=== PATIENT | female | born 1950 | race African-American/Black ===

== ENCOUNTER 2025-11-06 17:23 | Inpatient (IN) | payer OTHER ==
[~2025-11-06] VITALS: Ht 153.2 cm; Wt 85.5 kg
[2025-11-06 17:25] VITALS: PULSE 99; RESP 25; O2SAT 100
--- NOTE | 2025-11-06 17:46 | ECG ---
[facility] Test Date: 2025-11-06 Test Time: 17:29:28 Pat Name: LENORA BROWN Department: ED Room: 0203 Gender: F Pay Per Click Strategist: mima : 1950 Requested By: AYALA TIM Order Number: [id number] Reading MD: Augustine Vickers Measurements Intervals [place] Rate: 95 P: 57 [place]: 154 QRS: 9 QRSD: 90 T: 45 QT: 332 QTc: 418 Interpretive Statements Sinus rhythm Low voltage, extremity leads Borderline repolarization abnormality Baseline wander in lead(s) I,III,aVR,aVL,V3,V4,V6 Electronically Signed On 11-10-2025 17:16:02 PST by Augustine Vickers Please click the below link to view image of tracing.
--- NOTE | 2025-11-06 17:56 | ED.PDOC ---
SOB-HPI HPI Comments 75 y/o F, BIBA, with PMHx of COPD presents to the ED on C-Pap for CC of shortness of breath. EMS reports, patient is coming from home where she c/o shortness of breath onset, today (11/06/25). EMS relays, patient was hypoxic upon arrival with an oxygen saturation of 80%. En route to the ED, patient was given a breathing Tx and saturation improved to 90% however respirations remained tachypneic, patient was then placed on C-Pap. Upon arrival to the ED, patient was transferred to ED bed 06 and was placed on BiPAP; care is ongoing at this time. Chief Complaint: Shortness of Breath Time Seen by MD: 17:45 Reviewed notes: Nurses Notes, Photolithographic Stripper Notes, Medications, Allergies Information Source: Patient, Emergency Med Personnel Mode of Arrival: EMS Severity: Moderate Timing: Days Duration: Since onset Context: Spontaneous Onset PE Risk Factors: None History of: COPD Prehospital treatment: Breathing Tx, Other (C-pap) Modifying Factors: Nothing Associated Signs and Symptoms: None Past Medical History PAST MEDICAL HISTORY: COPD Surgical History: Denies all surgeries EMERGENCY MEDCL EMT History: Denies all EMERGENCY MEDCL EMT Hx Family History Family History: Unknown Social History Smoker: Cigarettes Alcohol: Denies ETOH Use Drugs: Denies Drug Use Lives In: Home Constitutional: denies: chills, diaphoresis, fatigue, fever, malaise, sweats, weakness, others EENTM: denies: blurred vision, double vision, ear bleeding, ear discharge, ear drainage, ear pain, ear ringing, eye pain, eye redness, hearing loss, mouth pain, mouth swelling, nasal discharge, nose bleeding, nose congestion, nose pain, photophobia, tearing, throat pain, throat swelling, voice changes, others Respiratory: reports: shortness of breath; denies: cough, hemoptysis, orthopnea, SOB at rest, SOB with excertion, stridor, wheezing, others Cardiovascular: denies: chest pain, dizzy spells, diaphoresis, Dyspnea on exertion, edema, irregular heart beat, left arm pain, lightheadedness, palpitations, PND, syncope, others Gastrointestinal: denies: abdomen distended, abdominal pain, blood streaked bowels, constipated, diarrhea, dysphagia, difficulty swallowing, hematemesis, melena, nausea, poor appetite, poor fluid intake, rectal bleeding, rectal pain, vomiting, others Genitourinary: denies: abnormal vagina bleeding, burning, dyspareunia, dysuria, flank pain, frequency, hematuria, incontinence, pain, , vagina discharge, urgency, others Neurological: denies: dizziness, fainting, headache, left sided numbness, left sided weakness, numbness, paresthesia, pre-existing deficit, right sided numbness, right sided weakness, seizure, speech problems, tingling, tremors, weakness, others Musculoskeletal: denies: back pain, gout, joint pain, joint swelling, muscle pain, muscle stiffness, neck pain, others Integumetry: denies: bruises, change in color, change in hair/nails, dryness, laceration, lesions, lumps, rash, wounds, others Allergic/Immunocompromised: denies: Difficulty Healing, Frequent Infections, Hives, Itching, others Hematologic/Lymphatic: denies: anemia, blood clots, easy bleeding, easy bruising, swollen glands, others Endocrine: denies: excessive hunger, excessive sweating, excessive thirst, excessive urination, flushing, intolerance to cold, intolerance to heat, unexplained weight gain, unexplained weight loss, others Psychiatric: denies: anxiety, bipolar disorder, depression, hopeless, panic disorder, schizophrenia, sleepless, suicidal, others All Other Systems: Reviewed and Negative Physical Exam General Appearance: No Apparent Distress, Normal HEENT: Normal ENT Inspection, Pharynx Normal Neck: Full Range of Motion, Non-Tender, Normal, Normal Inspection Respiratory: Chest Non-Tender, Other (tachypneic, hypoxic, acessory muscle use ) Cardiovascular: No Edema, No Murmur, No Gallop, Normal Peripheral Pulses, Regular Rate/Rhythm Breast Exam: Deferred Gastrointestinal: No Organomegaly, Non Tender, No Pulsatile Mass, Normal Bowel Sounds, Soft Genitalia: Deferred Pelvic: Deferred Rectal: Deferred Extremities: No calf tenderness, Normal capillary refill, Normal inspection, Normal range of motion, Non-tender, No pedal edema Musculoskeletal : Apperance: Normal Neurologic: Alert, bag washer II-XII nml as Tested, No Motor Deficits, Normal Affect, Normal Mood, No Sensory Deficits Cerebellar Function: Normal Reflexes: Normal Skin: Dry, Normal Color, Warm Lymphatic: No Adenopathy Was a procedure done? Was a procedure done?: No Differential Dx Differential Diagnosis: COPD, Hyperventilation, Pulmonary Embolism, Respiratory Distress X-Ray, Labs, Meds, VS Vital Signs Date Time Temp Pulse Resp B/P (MAP) Pulse Ox O2 Delivery O2 Flow Rate FiO2 11/06/25 19:00 84 122/78 96 Facial BiPAP Mask 100 11/06/25 18:40 88 22 122/78 (93) 100 11/06/25 17:29 95 11/06/25 17:25 97.3 99 25 141/114 (123) 100 97.3 11/06/25 17:25 99 25 100 Bi-Pap+ 12 100 100 11/06/25 17:23 97.3 99 30 141/114 100 97.3 11/06/25 17:23 97 141/114 Facial BiPAP Mask 100 Lab Test 11/06/25 19:07 11/06/25 18:07 Range/Units Troponin I High Sensitivity Pending 20 </=34 ng/L White Blood Count 7.4 4.4-10.8 10^3/uL Red Blood Count 5.97 H 4.0-5.20 10^6/uL Hemoglobin 15.3 12.2-16.2 g/dL Hematocrit 47.8 H 36.0-46.0 % Mean Corpuscular Volume 80.0 80.0-100.0 fL Mean Corpuscular Hemoglobin 25.6 L 28.0-32.0 pg Mean Corpuscular Hemoglobin Concent 31.9 L 32.0-36.0 g/dL Red Cell Distribution Width 16.5 H 11.8-14.3 % Platelet Count 285 140-450 10^3/uL Mean Platelet Volume 7.8 6.9-10.8 fL Neutrophils (%) (Auto) 61.4 37.0-80.0 % Lymphocytes (%) (Auto) 28.9 10.0-50.0 % Monocytes (%) (Auto) 8.0 0.0-12.0 % Eosinophils (%) (Auto) 0.6 0.0-7.0 % Basophils (%) (Auto) 1.1 0.0-2.0 % Neutrophils # (Auto) 4.5 1.6-8.6 10 ^3/uL Lymphocytes # (Auto) 2.1 0.4-5.4 10 ^3/uL Monocytes # (Auto) 0.6 0-1.3 10 ^3/uL Eosinophils # (Auto) 0 0-0.8 10 ^3/uL Basophils # (Auto) 0.1 0-0.2 10 ^3/uL Nucleated Red Blood Cells 0.1 % Sodium Level 138 136-145 mmol/L Potassium Level 5.1 3.5-5.1 mmol/L Chloride Level 106 98-107 mmol/L Carbon Dioxide Level 23 20-31 mmol/L Anion Gap 9 5-15 Blood Urea Nitrogen 20 9-23 mg/dL Creatinine 1.75 H 0.550-1.02 mg/dL Glomerular Filtration Rate Calc 30 >90 mL/min BUN/Creatinine Ratio 11.4 10.0-20.0 Serum Glucose 214 H 74-106 mg/dL Lactic Acid Level 1.4 0.4-2.0 mmol/L Calcium Level 9.6 8.7-10.4 mg/dL Time of 1ST Reevaluation: 18:15 Reevaluation 1ST: Unchanged Patient Education/Counseling: Diagnosis, Treatment Family Education/Counseling: No Family Present SEPSIS Sepsis Screen Date sepsis recognized/suspect: Nov 06, 2025 Time Sepsis recognized/suspect: 1724 Recent Procedure: No On Antibiotic Therapy: No Respiratory Rate >20: Yes Heart Rate >90: Yes Temp<36 C (96.8 F) or >38.3 C: No SBP <90 or MAP <65 mmHG: No New Acute Mental Status Change: No Is the patient on CPAP, BIPAP,: Yes Physician Orders Urinalysis (11/06/25 17:44) Chest Portable (11/06/25 17:44) Blood Culture (11/06/25 17:44) Troponin-I Hs (11/06/25 18:44) Troponin-I Hs (11/06/25 20:44) Electrocardigram (11/06/25 18:44) Electrocardigram (11/06/25 20:44) BIPAP (11/06/25 17:23) Vital Signs Date Time Temp Pulse Resp B/P (MAP) Pulse Ox O2 Delivery O2 Flow Rate FiO2 11/06/25 19:00 84 122/78 96 Facial BiPAP Mask 100 11/06/25 18:40 88 22 122/78 (93) 100 11/06/25 17:29 95 11/06/25 17:25 97.3 99 25 141/114 (123) 100 97.3 11/06/25 17:25 99 25 100 Bi-Pap+ 12 100 100 11/06/25 17:23 97.3 99 30 141/114 100 97.3 11/06/25 17:23 97 141/114 Facial BiPAP Mask 100 Laboratory Tests Test 11/06/25 18:07 Lactic Acid Level 1.4 mmol/L (0.4-2.0) White Blood Count 7.4 10^3/uL (4.4-10.8) Departure 1 Departure Time of Disposition: 19:31 (Patient presented with acute shortness of breath concerning for acute on chronic COPD Exacerbation, Pneumonia, ACS, CHF, Pneumothorax. Less likely PE, Dissection. Data: 1. I ordered and reviewed the result of at least 3 labs including a CBC, BMP, and Troponin. 2. I independently interpreted the following tests: Chest X-ray shows large pleural effusion consolidative left lobe .Risk:This patient has a high risk of morbidity due to further diagnostic testing or treatment and may suffer from respiratory or cardiac etiology . Workup reveals a likely COPD Exacerbation and large pleural effusion and patient should be admitted for further workup. and possible expert consultation.) Impression: Primary Impression: Acute and chronic respiratory failure Additional Impression: Pleural effusion Disposition: ADMITTED INPATIENT Admit to: POPPY Condition: Guarded Critical Care Note Critical Care Time?: Yes Critical care comment: Acute on chronic respiratory failure Authorized and Performed by: Ayala Shepard MD Total critical care time: Approximately 39 minutes Due to a high probability of clinically significant, life threatening deterioration, the patient required my highest level of preparedness to intervene emergently and I personally spent this critical care time directly and personally managing the patient. This critical care time included obtaining a history; examining the patient; pulse oximetry; ordering and review of studies; arranging urgent treatment with development of a management plan; evaluation of patient's response to treatment; frequent reassessment; and, discussions with other providers. This critical care time was performed to assess and manage the high probability of imminent, life-threatening deterioration that could result in multi-organ failure. It was exclusive of separately billable procedures and treating other patients and teaching time. Please see my other sections and the rest of the note for further information on patient assessment and treatment. Stability Stability form required: No Heart Score Heart Score: Heart Score Response (Comments) Value History Slightly Suspicious 0 EKG N/A 0 Age >65 2 Risk Factors 1 or 2 risk factors 1 Troponin N/A 0 Total 3 I personally scribed for AYALA SHEPARD MD ([email or web address]) on 11/06/25 at 17:56. Electronically submitted by Christine Sandoval ([email or web address]). I personally scribed for AYALA SHEPARD MD ([email or web address]) on 11/06/25 at 18:09. Electronically submitted by Christine Sandoval ([email or web address]). AYALA SHEPARD MD Nov 06, 2025 17:56
[2025-11-06 18:35] LABS: Hematocrit 47.8 % (36.0-46.0); Hemoglobin 15.3 g/dL (12.2-16.2); Mean Corpuscular Hemoglobin 25.6 pg (28.0-32.0); Mean Corpuscular Volume 80.0 fL (80.0-100.0); Nucleated Red Blood Cells % 0.1 %
[2025-11-06 18:43] LABS: Chloride 106 mmol/L (98-107); Potassium 5.1 mmol/L (3.5-5.1); Sodium 138 mmol/L (136-145)
[2025-11-06 18:44] LABS: Anion Gap 9 (5-15); Calcium 9.6 mg/dL (8.7-10.4); Carbon Dioxide 23 mmol/L (20-31)
[2025-11-06 18:49] LABS: BUN/Creatinine Ratio 11.4 (10.0-20.0); Blood Urea Nitrogen 20 mg/dL (9-23); Glucose 214 mg/dL (74-106)
[2025-11-06 19:00] VITALS: BP 122/78; PULSE 84; O2SAT 96
--- NOTE | 2025-11-06 19:24 | DVH ---
CHEST RADIOGRAPH INDICATION: sob TECHNIQUE: Single frontal view of the chest was obtained COMPARISON: None FINDINGS: Lines and Tubes: External cardiac monitoring wire draped over the right chest simulating the course of a right sided PICC line. This may represent wire from EKG lead as well. Lungs: No focal consolidation. Pleura: Opacification of the left kamaljit thorax may represent large pleural effusion. There are no prior chest x-rays for comparison No pneumothorax. Cardiomediastinal contours: Unremarkable Bones: No acute osseous abnormality. IMPRESSION: 1. Opacified left kamaljit thorax may represent a large pleural effusion.
[2025-11-06 19:50] VITALS: PULSE 82; RESP 21; O2SAT 100
[2025-11-06] MEDS ORDERED: NITROGLYCERIN 0.4 MG SL TAB SL PRN (20:15)
[2025-11-06] MEDS ORDERED: MORPHINE SULFATE INJ 2 MG/ml SYRG IV PRN (20:15)
[2025-11-06] MEDS ORDERED: IPRATROPIUM BROM 0.5 MG/2.5ML INH SOL NEB PRN (20:30)
[2025-11-06] MEDS ORDERED: DEXTROSE (50%) 50ML SYRG IV PRN (20:30)
[2025-11-06] MEDS ORDERED: ALBUTEROL SULF 2.5 MG/0.5ML(0.5%) NEB SOLN NEB PRN (20:30)
[2025-11-06] MEDS ORDERED: ONDANSETRON HCL 4 MG/2 ML VIAL IV PRN (20:30)
[2025-11-06 20:48] LABS: Base Excess -4.7 mmol/L (-2.0-3.0)
[2025-11-06] MEDS: AZITHROMYCIN 500MG/250ML 250 ML IV ONE (21:00)
[2025-11-06 21:11] VITALS: BP 122/78; PULSE 89; RESP 22; TEMP 97.3; O2SAT 97
[2025-11-06] MEDS: ACCU-CHEK COMFORT CURVE STRIP VI SCH (22:06)
[2025-11-06] MEDS: InsuLIN REG 1unit/0.01ml Soln (100units/ml) SC SCH (22:15)
[2025-11-07] VITALS (9 sets, daily range): BP systolic 114–137; BP diastolic 75–79; PULSE 64–79; RESP 16–25; TEMP 97.4–97.7; O2SAT 97–100
--- NOTE | 2025-11-07 03:43 | DVHHP2 ---
History of Present Illness Reason for Visit: Shortness for breath History of Present Illness 75-year-old female presents for evaluation of shortness for breath. Patient presents with a one day history of shortness for breath. On arrival patient was noted to be saturating in the low 80s. She was placed on CPAP intermittently. Currently off CPAP on nasal cannula saturating 93%. Patient denies chest pain. No palpitations. No fever or chills. She reports mild lower extremity swelling. Past Medical History COPD, hypertension, diabetes mellitus Past Surgical History Denies Family History Noncontributory Smoke: No ALCOHOL: none Drugs: None Lives: with Family Review of Systems Review of Systems Review of systems are currently negative otherwise addressed in HPI. Allergies: Coded Allergies: NO KNOWN ALLERGIES (Unverified , 11/06/25) Medications Current Medications Medications Dose Ordered Sig/Indra Route Start Time Stop Time Status Last Admin Dose Admin Nitroglycerin 0.4 mg Q5MINP PRN SL 11/06/25 20:15 Morphine Sulfate 2 mg Q30M PRN IV 11/06/25 20:15 Albuterol 2.5 mg Q6HPRN PRN NEB 11/06/25 20:30 Ipratropium [place] 0.5 mg Q6HPRN PRN NEB 11/06/25 20:30 Azithromycin 250 ml @ 125 mls/hr Q24H IV 11/07/25 21:00 Diagnostic Test (Pha) 1 strip ACHS 11/06/25 22:00 11/06/25 22:06 1 STRIP Insulin Human Regular ACHS SC 11/06/25 22:00 11/06/25 22:15 2 UNITS Dextrose 50 ml UD PRN IV 11/06/25 20:30 Ondansetron HCl 4 mg Q4HP PRN IV 11/06/25 20:30 Enoxaparin Sodium 30 mg DAILY SC 11/07/25 10:00 Acetaminophen 650 mg Q6HP PRN PO 11/06/25 20:30 Exam Vital Signs Vital Signs Date Time Temp Pulse Resp B/P (MAP) Pulse Ox O2 Delivery O2 Flow Rate FiO2 11/07/25 03:00 65 24 98/53 (68) 98 11/06/25 21:11 97.3 7.0 58 97.3 11/06/25 19:50 Bi-Pap+ Exam Gen: 75-year-old female in mild distress Skin: Warm, dry, normal color and texture, no rash. HEENT: Normocephalic atraumatic, mucous membranes moist and pink. Neck: Cervical and supraclavicular nodes normal without enlargement, trachea is midline, thyroid gland is normal without masses. Pulmonary: Clear to auscultation and percussion bilaterally. Cardiac: Regular rate and rhythm. No murmur Abdomen: Soft, nontender, nondistended, bowel sounds present all 4 quadrants, no guarding, no rigidity, no organomegaly. Extremities: No cyanosis, clubbing, no edema Neuro: Cranial nerves II through XII grossly intact, normal affect and speech, no focal motor deficits. Labs/Xrays ORDERING PHYSICIAN: AYALA TIM MD PROCEDURE(s): CXRP - CHEST PORTABLE REASON: sob ORDER NUMBER(s): [id number], ACCESSION NUMBER(s): [id number] CHEST RADIOGRAPH INDICATION: sob TECHNIQUE: Single frontal view of the chest was obtained COMPARISON: None FINDINGS: Lines and Tubes: External cardiac monitoring wire draped over the right chest simulating the course of a right sided PICC line. This may represent wire from EKG lead as well. Lungs: No focal consolidation. Pleura: Opacification of the left kamaljit thorax may represent large pleural effusion. There are no prior chest x-rays for comparison No pneumothorax. Cardiomediastinal contours: Unremarkable Bones: No acute osseous abnormality. IMPRESSION: 1. Opacified left kamaljit thorax may represent a large pleural effusion. Labs Test 11/06/25 22:05 11/06/25 20:38 11/06/25 19:07 11/06/25 18:07 Range/Units POC Glucose 140 H 70-106 mg/dl Blood Gas Specimen Type Arterial Blood Gas Sample Site Right radial Blood Gas Patient Temperature 37.0 Arterial Blood Date Drawn [id number] Arterial Blood pH 7.332 L 7.350-7.450 Arterial Blood Partial Pressure CO2 40.3 32.0-45.0 mmHg Arterial Blood Partial Pressure O2 221.5 H 83.0-108.0 mmHg Arterial Blood HCO3 20.9 L 21.0-28.0 mmol/L Arterial Blood Oxygen Saturation 99.5 H 94.0-98.0 % Arterial Blood Base Excess -4.7 L -2.0-3.0 mmol/L Arterial Blood Oxyhemoglobin 97.2 94.0-98.0 % Arterial Blood Carboxyhemoglobin 1.8 H 0.5-1.5 % Arterial Blood Methemoglobin 0.5 0.0-1.5 % Arterial Blood Deoxyhemoglobin 0.5 0.0-5.0 % Pancho Test Modified Blood Gas Total Hemoglobin 15.00 12.0-16.0 g/dL Blood Gas Set Respiration Rate 12.0 Blood Gas Modality Mask - bipap FiO2 % 100.0 Blood Gas EPAP 5 Blood Gas IPAP 12 Troponin I High Sensitivity 20 </=34 ng/L White Blood Count 7.4 4.4-10.8 10^3/uL Red Blood Count 5.97 H 4.0-5.20 10^6/uL Hemoglobin 15.3 12.2-16.2 g/dL Hematocrit 47.8 H 36.0-46.0 % Mean Corpuscular Volume 80.0 80.0-100.0 fL Mean Corpuscular Hemoglobin 25.6 L 28.0-32.0 pg Mean Corpuscular Hemoglobin Concent 31.9 L 32.0-36.0 g/dL Red Cell Distribution Width 16.5 H 11.8-14.3 % Platelet Count 285 140-450 10^3/uL Mean Platelet Volume 7.8 6.9-10.8 fL Neutrophils (%) (Auto) 61.4 37.0-80.0 % Lymphocytes (%) (Auto) 28.9 10.0-50.0 % Monocytes (%) (Auto) 8.0 0.0-12.0 % Eosinophils (%) (Auto) 0.6 0.0-7.0 % Basophils (%) (Auto) 1.1 0.0-2.0 % Neutrophils # (Auto) 4.5 1.6-8.6 10 ^3/uL Lymphocytes # (Auto) 2.1 0.4-5.4 10 ^3/uL Monocytes # (Auto) 0.6 0-1.3 10 ^3/uL Eosinophils # (Auto) 0 0-0.8 10 ^3/uL Basophils # (Auto) 0.1 0-0.2 10 ^3/uL Nucleated Red Blood Cells 0.1 % D-Dimer, Quantitative 4.64 H 0.0-0.49 mg/L FEU Sodium Level 138 136-145 mmol/L Potassium Level 5.1 3.5-5.1 mmol/L Chloride Level 106 98-107 mmol/L Carbon Dioxide Level 23 20-31 mmol/L Anion Gap 9 5-15 Blood Urea Nitrogen 20 9-23 mg/dL Creatinine 1.75 H 0.550-1.02 mg/dL Glomerular Filtration Rate Calc 30 >90 mL/min BUN/Creatinine Ratio 11.4 10.0-20.0 Serum Glucose 214 H 74-106 mg/dL Lactic Acid Level 1.4 0.4-2.0 mmol/L Calcium Level 9.6 8.7-10.4 mg/dL B-Type Natriuretic Peptide 37.47 0-100 pg/mL SEPSIS Sepsis Screen Date sepsis recognized/suspect: Nov 06, 2025 Time Sepsis recognized/suspect: 1724 Recent Procedure: No On Antibiotic Therapy: No Respiratory Rate >20: Yes Heart Rate >90: Yes Temp<36 C (96.8 F) or >38.3 C: No SBP <90 or MAP <65 mmHG: No New Acute Mental Status Change: No Is the patient on CPAP, BIPAP,: Yes Physician Orders Admit (11/06/25 20:08) Nitroglycerin Sublingual (Ntrostat Subli (11/06/25 20:15) Morphine Sulfate Injection (11/06/25 20:15) Stat Ekg For Chest Pain (11/06/25 20:08) Notify Md Of Changes From Base (11/06/25 20:08) Automation Controls Expert For 24 Hours (11/06/25 20:08) Emergency Dysrhythmia Protocol (11/06/25 20:08) Rhythm Strips Once Every Shift (11/06/25 20:08) Oxygen By Nasal Cannula (11/06/25 20:08) Abg W/ Co-Ox (11/06/25 20:17) Consistent Carb(Ccho)Diabetes (11/07/25 Breakfast) Albuterol Medneb (Ventolin Medneb) (11/06/25 20:30) Ipratropium Medneb (Atrovent Medneb) (11/06/25 20:30) Azithromycin 500mg/250ml (Zithromax 500m (11/07/25 21:00) * Radiologist Consult (11/06/25 20:17) Chest Without Contrast (11/06/25 20:17) Glucose Blood (Accu-Chek Comfort Curve T (11/06/25 22:00) Insulin R (Human) (Insulin R) (11/06/25 22:00) Dextrose 50% Syringe (11/06/25 20:30) Ondansetron Hcl (Zofran) (11/06/25 20:30) Complete Blood Count (11/07/25 04:00) Comprehensive Metabolic Panel (11/07/25 04:00) Cardiac Diet-2gna,Lofat,Lochol (11/07/25 Breakfast) Echo 2d Mode Cardiac Dop (11/06/25 20:17) Condition: Critical (11/06/25 20:17) Enoxaparin Sodium (Lovenox) (11/07/25 10:00) Acetaminophen Tablet (Tylenol Tablet) (11/06/25 20:30) Bedrest With Bathroom Privileg (11/06/25 20:17) Transfer Orders (11/06/25 23:51) Nm Vq Scan (11/07/25 03:35) Vital Signs Date Time Temp Pulse Resp B/P (MAP) Pulse Ox O2 Delivery O2 Flow Rate FiO2 11/07/25 03:00 65 24 98/53 (68) 98 11/06/25 23:30 76 26 95/65 (75) 96 11/06/25 22:30 78 29 118/86 (97) 94 11/06/25 21:30 72 25 98/75 (83) 100 11/06/25 21:11 97.3 89 22 122/78 97 7.0 58 97.3 11/06/25 19:50 82 21 100 Bi-Pap+ 12 100 100 Laboratory Tests Test 11/06/25 18:07 Lactic Acid Level 1.4 mmol/L (0.4-2.0) White Blood Count 7.4 10^3/uL (4.4-10.8) Medications Medications Dose Ordered Sig/Indra Route Start Time Stop Time Status Last Admin Dose Admin Azithromycin 250 ml @ 125 mls/hr ONCE ONCE IV 11/06/25 20:30 11/06/25 22:29 DC 11/06/25 21:00 125 MLS/HR Diagnostic Test (Pha) 1 strip ACHS 11/06/25 22:00 11/06/25 22:06 1 STRIP Insulin Human Regular ACHS SC 11/06/25 22:00 11/06/25 22:15 2 UNITS Assessment/Plan Assessment/Plan Assessment Acute on chronic hypoxic respiratory failure Large pleural effusion COPD Acute kidney injury Hypertension Diabetes mellitus Plan Admit the patient to [facility] to the hospitalist Radiology consultation Med nebs Azithromycin Chest CT pending V/Q scan pending Bilateral lower extremity ultrasound pending Continue treatment per orders Total critical care time excluding procedures performed this 55 minutes. Plan discussed with: Patient My Orders Orders - FERGUSONCASTROHECTOR AGACNP Procedure Category Date Status Time Admit ADMIT 11/06/25 Transmitted 20:08 Nitroglycerin PHA 11/06/25 In Process Sublingual (Ntrostat 20:15 Morphine Sulfate PHA 11/06/25 In Process Injection 20:15 Stat Ekg For Chest RAJESH 11/06/25 In Process Pain 20:08 Notify Of Changes RAJESH 11/06/25 In Process From Base 20:08 Automation Controls Expert For RAJESH 11/06/25 In Process 24 Hours 20:08 Emergency Dysrhythmia RAJESH 11/06/25 In Process Protocol 20:08 Rhythm Strips Once RAJESH 11/06/25 In Process Every Shift 20:08 Oxygen By Nasal RT 11/06/25 Transmitted Cannula 20:08 Abg W/ Co-Ox RT 11/06/25 Logged 20:17 Consistent DIET 11/07/25 Transmitted Carb(Ccho)Diabetes Breakfast Albuterol Medneb PHA 11/06/25 In Process (Ventolin Medneb) 20:30 Ipratropium Medneb PHA 11/06/25 In Process (Atrovent Medneb) 20:30 Azithromycin PHA 11/07/25 In Process 500mg/250ml 21:00 * Radiologist Consult CONS 11/06/25 Transmitted 20:[address] 11/06/25 Logged 20:17 Glucose Blood PHA 11/06/25 In Process (Accu-Chek Comfort 22:00 Insulin R (Human) PHA 11/06/25 In Process (Insulin R) 22:00 Dextrose 50% Syringe PHA 11/06/25 In Process 20:30 Ondansetron Hcl PHA 11/06/25 In Process (Zofran) 20:30 Complete Blood Count LAB 11/07/25 Logged 04:00 Comprehensive LAB 11/07/25 Logged Metabolic Panel 04:00 Cardiac DIET 11/07/25 Transmitted Diet-2gna,Lofat,Lochol Breakfast Echo 2d Mode Cardiac US 11/06/25 Logged DOP 20:17 Condition: Critical RAJESH 11/06/25 In Process 20:17 Enoxaparin Sodium PHA 11/07/25 In Process (Lovenox) 10:00 Acetaminophen Tablet PHA 11/06/25 In Process (Tylenol Tablet) 20:30 Bedrest With Bathroom RAJESH 11/06/25 In Process Privileg 20:17 Transfer Orders XFER 11/06/25 Transmitted 23:51 Nm Vq Scan NM 11/07/25 Logged 03:35 Date of Service: Nov 06, 2025 Billing Provider: CASTRO FERGUSON Common Visit Codes: 44764-[id number] CARE 30-74 MIN CASTRO FERGUSON Nov 07, 2025 03:43
--- NOTE | 2025-11-07 05:03 | DVH ---
CT Chest without intravenous contrast INDICATION: sob TECHNIQUE: Multidetector spiral CT of the chest was performed from the lung apices to the upper abdomen. Axial, coronal and sagittal multiplanar reformats were performed. Radiation Dose : 1. Chest: CTDI volume is 27.8 mGy. Dose-length product is 1066.83 mGy*cm The dose indicators for CT are the volume Computed Tomography (CT) Dose Index (CTDIvol) and the Dose Length Product (DLP), and are measured in units of mGy and mGy-cm, respectively. These indicators are not patient dose, but values generated from the CT scanner acquisition factors. The report includes radiation exposure data for exposures received during this examination. COMPARISON: XY CHEST PORTABLE on DOS: 11/06/25 FINDINGS: Lower neck: Normal thyroid. Lungs /pleura: Large left pleural effusion occupying the entire left kamaljit thorax with complete left lung collapse and concomitant shift of the mediastinal structures to the right. Subsolid 6 mm perifissural lateral right lower lobe pulmonary nodule. Heart/Vascular Structures: Normal heart size. No pericardial effusion. Lymph Nodes: No adenopathy Musculoskeletal: No acute osseous abnormality. Soft tissues: Normal. Upper abdomen: Limited portions of the upper abdomen are unremarkable. IMPRESSION: 1. Large left pleural effusion occupying the entire left hemithorax with complete left lung collapse and concomitant shift of the mediastinal structures to the right. 2. Subsolid perifissural lateral right lower lobe pulmonary nodule. Radiation optimization: All CT scans at this facility use at least one of these dose optimization techniques: automated exposure control mA and/or kV adjustment per patient size (includes targeted exams where dose is matched to clinical indication) or iterative reconstruction.
[2025-11-07 05:09] LABS: Urine Protein, UAD 2+ (Negative)
[2025-11-07 06:56] LABS: Hematocrit 44.0 % (36.0-46.0); Hemoglobin 14.1 g/dL (12.2-16.2); Mean Corpuscular Hemoglobin 25.5 pg (28.0-32.0); Mean Corpuscular Volume 79.6 fL (80.0-100.0); Nucleated Red Blood Cells % 0.1 %
[2025-11-07 07:10] LABS: Alanine Aminotransferase 37 U/L (7-40); Albumin 3.3 g/dL (3.2-4.8); Alkaline Phosphatase 78 U/L (46-116); Anion Gap 7 (5-15); BUN/Creatinine Ratio 11.9 (10.0-20.0); Blood Urea Nitrogen 20 mg/dL (9-23); Calcium 9.2 mg/dL (8.7-10.4); Carbon Dioxide 23 mmol/L (20-31); Potassium 4.5 mmol/L (3.5-5.1); Sodium 142 mmol/L (136-145); Total Protein 6.2 g/dL (5.7-8.2)
[2025-11-07 07:11] LABS: Bilirubin, Total 0.3 mg/dL (0.2-1.0)
[2025-11-07 07:25] LABS: Chloride 112 mmol/L (98-107)
[2025-11-07 07:27] LABS: Glucose 35 mg/dL (74-106)
--- NOTE | 2025-11-07 09:15 | DVH ---
Bilateral lower extremity venous duplex CLINICAL HISTORY: edema COMPARISON: None FINDINGS: Duplex Doppler evaluation of the deep venous systems of both lower extremities from the common femoral veins to the popliteal veins including color Doppler and spectral/pulsed waveform analysis was performed. RIGHT SIDE: The common femoral vein demonstrates appropriate compressibility and waveform variability. There is compressibility/patency of the great saphenous vein at the proximal thigh. The femoral vein demonstrates appropriate compressibility and waveform variability. The deep femoral vein demonstrates appropriate compressibility and waveform variability. The popliteal vein demonstrates appropriate compressibility and waveform variability. There is normal compressibility at the tibioperoneal trunk. LEFT SIDE: The common femoral vein demonstrates appropriate compressibility and waveform variability. There is compressibility/patency of the great saphenous vein at the proximal thigh. The femoral vein demonstrates appropriate compressibility and waveform variability. The deep femoral vein demonstrates appropriate compressibility and waveform variability. The popliteal vein demonstrates appropriate compressibility and waveform variability. There is normal compressibility at the tibioperoneal trunk. IMPRESSION: No right or left femoropopliteal venous thrombosis. If clinical concern/symptoms persist or worsen, short-interval follow-up study is suggested. END IMPRESSION:
[2025-11-07] MEDS: ENOXAPARIN SOD 30 MG/0.3 ML SYRINGE SC SCH (10:21)
[2025-11-07] MEDS: FUROSEMIDE 20 MG TAB PO SCH (10:21)
--- NOTE | 2025-11-07 10:41 | DVH ---
PROCEDURE: ULTRASOUND GUIDED THORACENTESIS USING TEMPORARY CATHETER HISTORY: PLERUAL EFFUSION DOCUMENTATION: Informed consent was obtained and a procedural time out was performed. FINDINGS: The risks and benefits of the procedure including bleeding, infection and pneumothorax were explained to the patient and written informed consent obtained. Optimal site for puncture long the left posterior chest wall was determined using real-time ultrasound and the region sterilized. Local anesthesia was instilled. A 5 [place] catheter was then advanced into the pleural space and 1.1 liters of clear fluid was removed. The patient tolerated the procedure well. IMPRESSION: 1. Successful left thoracentesis with 1.1 L of clear fluid removed.
--- NOTE | 2025-11-07 12:39 | DVH ---
CHEST RADIOGRAPH INDICATION: Post Thoracentesis TECHNIQUE: Single frontal view of the chest was obtained COMPARISON: CT CHEST WITHOUT CONTRAST on DOS: 11/07/25, XY CHEST PORTABLE on DOS: 11/06/25 FINDINGS: Lines and Tubes: None Lungs: There is complete opacification of the left hemithorax. Increased density is seen at the right lung base. No pneumothorax. Cardiomediastinal contours: Difficult to visualize due to large hemithorax left opacity. Bones: No acute osseous abnormality. IMPRESSION: 1. Complete opacification of the left hemithorax. 2. No pneumothorax. 3. Mild infiltrate right lung base.
--- NOTE | 2025-11-07 14:53 | DVHPNRES ---
Progress Note Date Seen: Nov 07, 2025 Resident Creating Document: MIKAL ZAPATA RESIDENT Medical Necessity Reason Pt with a Central, PICC or Fol: No Subjective Review of Systems Patient is 75 years old female with a past medical history of hypertension, diabetes mellitus type 2, COPD not on home oxygen came with a complaint of shortness of breaths. As per patient she has been having shortness of breaths for last 3 weeks, increased with the exertion. Patient also endorsed cough with whitish mucus. Patient denied any fever, palpitation, leg swelling/weight loss or anorexia. CXR revealed-Opacified left kamaljit thorax may represent a large pleural effusion. CT chest- Large left pleural effusion occupying the entire left hemithorax with complete left lung collapse and concomitant shift of the mediastinal structures to the right. Subsolid perifissural lateral right lower lobe pulmonary nodule. V/Q scan low probability for PE. Doppler study of the lower extremity nonsignificant per DVT. PMH-hypertension, diabetes mellitus type 2, COPD PSH- denies Allergy- and kidney Personal History/ Social History- chronic smoker for almost 50 years, denies alcoholism or drug abuse, lives with daughter and granddaughter. ROS Cardiovascular- shortness of breaths Respiratory cough, shortness of breath Gastrointestinal- denies any rectal bleeding, nausea or vomiting Musculoskeletal-denies acute joint swelling or tenderness or redness Neurological- denies acute dysarthria, dysphagia, change in vision Psychiatry- denies depression or SI or HI Skin- denies acute rash or purpura Patient is seen today at bedside, Labs and chart reviewed Patient had thoracentesis, 1.1 L of fluid was removed by IR Pending cytology report for pleural fluid Ordered Pulmonary consult Ordered IR for chest tube drainage Patient's antibiotic Zosyn and azithromycin Pending MRSA screening, blood culture, respiratory culture Objective vital signs Vital Sign Date Time Temp Pulse Resp B/P (MAP) Pulse Ox O2 Delivery O2 Flow Rate FiO2 11/07/25 13:00 72 28 138/37 (70) 94 11/07/25 11:40 Nasal Cannula* 4 36 11/07/25 07:30 97.6 97.6 Total Intake and Output 11/06/25 11/06/25 11/07/25 15:00 23:00 07:00 Intake Total 250 ml Balance 250 ml medications Current Medications Medications Dose Ordered Sig/Indra Route Start Time Stop Time Status Last Admin Dose Admin Nitroglycerin 0.4 mg Q5MINP PRN SL 11/06/25 20:15 Morphine Sulfate 2 mg Q30M PRN IV 11/06/25 20:15 Azithromycin 250 ml @ 125 mls/hr Q24H IV 11/07/25 21:00 Diagnostic Test (Pha) 1 strip ACHS 11/06/25 22:00 11/07/25 11:30 1 STRIP Insulin Human Regular ACHS SC 11/06/25 22:00 11/06/25 22:15 2 UNITS Dextrose 50 ml UD PRN IV 11/06/25 20:30 Ondansetron HCl 4 mg Q4HP PRN IV 11/06/25 20:30 Enoxaparin Sodium 30 mg DAILY SC 11/07/25 10:00 11/07/25 10:21 30 MG Acetaminophen 650 mg Q6HP PRN PO 11/06/25 20:30 Furosemide 20 mg DAILY PO 11/07/25 10:00 11/07/25 10:21 20 MG Diagnostic Test (Pha) 1 strip ACHS 11/07/25 17:00 Albuterol 2.5 mg Q6HWA NEB 11/07/25 18:00 Ipratropium [place] 0.5 mg Q6HWA NEB 11/07/25 18:00 Piperacillin Sod/ Tazobactam Sod 100 ml @ 25 mls/hr Q8HR IV 11/07/25 14:30 Examination General examination- awake, alert HEENT- PEERLA, no acute nasal discharge Cardiovascular- S1-S2 audible, rate and rhythm regular, no murmur Respiratory- diminished breath sound of the left side of the lung Gastrointestinal-nontender, bowel sound+. Nondistended Musculoskeletal-no acute joint swelling or tenderness or redness Lower extremity- no leg edema Neurological- cranial nerves intact, no acute dysarthria or dysphagia Psychiatry- denies depression or SI or HI Skin- no acute rash or purpura laboratory and microbiology Laboratory Tests 11/07/25 06:00 Test 11/07/25 06:00 Range/Units Serum Glucose 35 *L 74-106 mg/dL Problem List/Assessment/Plan Problem List/Assessment/Plan #Acute hypoxic respiratory failure likely due to parapneumonic effusion/malignant pleural effusion # suspected pneumonia Gram-positive versus Gram-negative # suspected malignancy of the left lung # right lung pulmonary nodule # COPD - CXR revealed-Opacified left kamaljit thorax may represent a large pleural effusion. - CT chest- Large left pleural effusion occupying the entire left hemithorax with complete left lung collapse and concomitant shift of the mediastinal structures to the right. Subsolid perifissural lateral right lower lobe pulmonary nodule. - V/Q scan low probability for PE. - Doppler study of the lower extremity nonsignificant per DVT. -status post thoracentesis on the left side, 1.1 L fluid was removed by IR -pending cytology for pleural fluid, pending pleural fluid restart -pending blood culture, MRSA screening, respiratory culture -patient on Zosyn and azithromycin -nebulization PRN -continue Lasix -ordered Pulmonary consult for further evaluation and care -ordered IR consult for chest tube drainage # [place] likely due to VMN -Avoid dehydration and nephrotoxic drug # hypertension -monitor blood pressure # diabetes mellitus type 2 with hyperglycemia -hemoglobin A1c 7.5 -insulin sliding scale Goals of care, Code status full code ; discussed with >15 minutes PUD prophylaxis: Pantoprazole DVT prophylaxis: Lovenox Plan discussed with Dr. Chowdary , nursing staff, Total time spent on patient evaluation, chart review, assessment and plan, discussion discussion >35 minutes Plan discussed with: Patient, Other (RN) My Orders My Orders Orders - MIKAL ZAPATA Procedure Category Date Status Time Vitamin D, 25-Hydroxy LAB 11/07/25 In Process 11:35 Drug Screen LAB 11/07/25 Logged 11:35 Cytology MUMTAZ 11/07/25 Transmitted 11:47 Glucose Blood PHA 11/07/25 In Process (Accu-Chek Comfort 17:00 Lactate LAB 11/07/25 Logged Dehydrogenase, Fluid 14:47 Visit Coding STANDARD RES Billing Provider: RANDOLPH CROCKETT MD Date of Service if different f: Nov 07, 2025 Common Visit Codes: [id number] INP/OBS CARE(HIGH) MIKAL ZAPATA Nov 07, 2025 14:53
--- NOTE | 2025-11-07 15:17 | DVH ---
NUCLEAR MEDICINE VENTILATION/PERFUSION LUNG SCAN. INDICATION: PULMONARY EMBOLISM TECHNIQUE: Following intravenous demonstration of 5 millicuries of technetium xe-133, and inhalation of 3.5 mCi of Tc 99m MAA scintigrams were obtained in multiple projections of the lungs. FINDINGS: There is normal uptake of radionuclide on both the ventilation and perfusion portions of the examination. No mismatched perfusion defects are demonstrated. Uptake is normally homogeneous. IMPRESSION: Low probability for PE.
[2025-11-07] MEDS: NICOTINE 21MG/24 HR TOPICAL PATCH TD ONE (16:06)
[2025-11-07] MEDS: PIPERACILLIN-TAZOB 3.375GM 100 ML IV SCH (16:06)
[2025-11-07] MEDS ORDERED: ALBU108A5 IN (17:44)
[2025-11-07] MEDS ORDERED: METF-370 PO (17:45)
[2025-11-07] MEDS ORDERED: FLUT250M2 INH (17:45)
[2025-11-07] MEDS ORDERED: INSU100S4 SC (17:47)
[2025-11-07] MEDS ORDERED: GLIP10TA21 PO (17:47)
[2025-11-07] MEDS ORDERED: LISI20TA56 PO (17:49)
[2025-11-07] MEDS: ALBUTEROL SULF 2.5 MG/0.5ML(0.5%) NEB SOLN NEB SCH (18:04)
[2025-11-07] MEDS: IPRATROPIUM BROM 0.5 MG/2.5ML INH SOL NEB SCH (18:04)
[2025-11-07] MEDS: ACCU-CHEK COMFORT CURVE STRIP VI SCH (18:30)
[2025-11-07 20:28] LABS: Amphetamine Screen, Urine Neg (NEGATIVE); Barbiturate Scree,Urine Neg (NEGATIVE); Benzodiazephine Screen, Urine Neg (NEGATIVE); Cannabinoid Screen, Urine Neg (NEGATIVE); Phencyclidine Screen, Urine Neg (NEGATIVE)
[2025-11-07 20:37] LABS: Cocaine Screen, Urine Neg (NEGATIVE)
[2025-11-07 20:56] LABS: Opiate Scree,Urine Neg (NEGATIVE)
[2025-11-07] MEDS: AZITHROMYCIN 500MG/250ML 250 ML IV SCH (21:05)
--- NOTE | 2025-11-07 23:28 | DVHINCON2 ---
Date of service: Nov 07, [address] Rashid Reason for Consultation Pleural effusion, acute on chronic hypoxic respiratory failure. History of Present Illness A 75-year-old woman with PMHx of COPD, hypertension, and diabetes mellitus who presents to ED today for evaluation of shortness of breath. Patient presents with a one-day history of shortness of breath. On arrival patient was noted to be saturating in the low 80s. She was placed on CPAP intermittently. Currently off CPAP, on nasal cannula. Patient denies chest pain. No palpitations. No fever or chills. She reports mild lower extremity swelling. Patient was admitted for further care. Pulmonary consultation is requested for evaluation and management of pleural effusion and acute on chronic hypoxic respiratory failure. Review of Systems: 14-point review of systems negative unless otherwise noted above. Past Medical History: COPD, hypertension, diabetes mellitus Past Surgical History: Denies Medications: Reviewed. Allergies: No known drug allergies. Family History: No family history of premature CAD. No family history of lung disorders. Social History: Nonsmoker. No alcohol or illicit drug use. Family History: Patient reports no known family medical history. Allergies: Coded Allergies: NO KNOWN ALLERGIES (Unverified , 11/06/25) Home Meds Reported Medications Lisinopril (Lisinopril) 20 Mg Tab, 1 TAB PO DAILY, #30 TAB 5 Refills 11/07/25 Glipizide (Glipizide Er) 10 Mg Tab, 1 TAB PO DAILY, #90 TAB 1 Refill 11/07/25 Insulin Glargine-Yfgn (Insulin Glargine) 100 Unit/Ml [place], 100 UNIT SC, ML 11/07/25 Metformin Hydrochloride (Metformin Hcl) 500 Mg Tab, 1 TAB PO BID, #60 TAB 3 Refills 11/07/25 Fluticasone-Salmeterol (Advair Diskus 250/50) 1 Puff Ih, 1 PUFF INH BID, #3 INHALER 3 Refills 11/07/25 Albuterol Sulfate (Albuterol Sulfate Hfa) 108 Mcg/Act Aer, 108 MCG IN, AER 11/07/25 Current Medications Current Medications Medications (Trade) Dose Ordered Sig/Indra Route PRN Reason Start Time Stop Time Status Last Admin Azithromycin 250 ml @ 125 mls/hr Q24H IV 11/07/25 21:00 11/07/25 21:05 Enoxaparin Sodium (Lovenox) 30 mg DAILY SC 11/07/25 10:00 11/07/25 10:21 Furosemide (Lasix Tablet) 20 mg DAILY PO 11/07/25 10:00 11/07/25 10:21 Diagnostic Test (Pha) (Accu-Chek Comfort Curve T) 1 strip ACHS 11/07/25 17:00 11/07/25 21:05 Ceftriaxone Sodium 50 ml @ 100 mls/hr DAILY@09 IV 11/07/25 12:00 11/07/25 14:28 DC 11/07/25 12:00 Albuterol (Ventolin Medneb) 2.5 mg Q6HWA [facility] 11/07/25 18:00 11/07/25 18:04 Ipratropium [place] (Atrovent Medneb) 0.5 mg Q6HWA [facility] 11/07/25 18:00 11/07/25 18:04 Piperacillin Sod/ Tazobactam Sod 100 ml @ 25 mls/hr Q8HR IV 11/07/25 14:30 11/07/25 16:06 Nicotine (Nicoderm 21MG/ 24HR) 1 patch DAILY TD 11/08/25 10:00 Vital Signs Vital Signs Date Time Temp Pulse Resp B/P (MAP) Pulse Ox O2 Delivery O2 Flow Rate FiO2 11/07/25 21:00 97.7 72 16 114/75 (88) 98 97.7 11/07/25 18:00 Nasal Cannula 4.0 11/07/25 18:00 36 Physical Exam Gen.: Patient lying in bed in no apparent distress. On supplemental oxygen. Head: Normocephalic, atraumatic. Eyes: EOMI/PERRLA. Ears: Normal hearing. Normal anatomy. Neck/trachea: Trachea midline, supple. Nose: Normal external anatomy. Mouth: Moist mucous membranes. Chest: Decreased air entry bilaterally. No wheezing or rhonchi. Cardiovascular: Positive S1, positive S2. Regular rate and rhythm. Abdomen: Positive bowel sounds in all 4 quadrants. Soft, non-tender, non- distended. : Deferred. Rectal: Deferred. Skin: Warm, dry. Intact. Extremities: 2+ radial pulses bilaterally. No lower extremity edema. Neuro: Awake, alert, oriented x3. No gross motor or sensory deficits. Cranial ne rves II through XII intact. Gait not assessed. Labs/Diagnostic Data Labs Test 11/07/25 21:10 11/07/25 18:00 11/07/25 13:17 11/07/25 13:14 Range/Units POC Glucose 230 H 70-106 mg/dl Influenza Type A Antigen Negative Negative Influenza Type B Antigen Negative Negative Lactate Dehydrogenase 228 120-246 U/L C-Reactive Protein High Sensitivity 1.68 H <1.0 mg/dL Vitamin D 25-Hydroxy 33.7 30.0-100 ng/mL Vitamin B12 Level 503 211-911 pg/mL Folic Acid 8.48 >5.38 ng/mL Test 11/07/25 10:25 11/07/25 06:00 11/07/25 01:11 11/06/25 20:38 Range/Units Body Fluid Source Pleural fluid Body Fluid pH 7.0 Body Fluid WBC (Manual) 1169 H 0-200 CUMM Body Fluid RBC (Manual) 1983 0-2000 CUMM Body Fluid Mononuclear Cells 98 % Body Fluid Polymorphonuclear Cells 2 0-25 % White Blood Count 6.6 4.4-10.8 10^3/uL Red Blood Count 5.52 H 4.0-5.20 10^6/uL Hemoglobin 14.1 12.2-16.2 g/dL Hematocrit 44.0 36.0-46.0 % Mean Corpuscular Volume 79.6 L 80.0-100.0 fL Mean Corpuscular Hemoglobin 25.5 L 28.0-32.0 pg Mean Corpuscular Hemoglobin Concent 32.0 32.0-36.0 g/dL Red Cell Distribution Width 16.3 H 11.8-14.3 % Platelet Count 255 140-450 10^3/uL Mean Platelet Volume 8.2 6.9-10.8 fL Neutrophils (%) (Auto) 76.5 37.0-80.0 % Lymphocytes (%) (Auto) 13.8 10.0-50.0 % Monocytes (%) (Auto) 8.6 0.0-12.0 % Eosinophils (%) (Auto) 0.5 0.0-7.0 % Basophils (%) (Auto) 0.6 0.0-2.0 % Neutrophils # (Auto) 5.0 1.6-8.6 10 ^3/uL Lymphocytes # (Auto) 0.9 0.4-5.4 10 ^3/uL Monocytes # (Auto) 0.6 0-1.3 10 ^3/uL Eosinophils # (Auto) 0 0-0.8 10 ^3/uL Basophils # (Auto) 0 0-0.2 10 ^3/uL Nucleated Red Blood Cells 0.1 % Erythrocyte Sedimentation Rate 8 0-20 mm/hr Sodium Level 142 136-145 mmol/L Potassium Level 4.5 3.5-5.1 mmol/L Chloride Level 112 H 98-107 mmol/L Carbon Dioxide Level 23 20-31 mmol/L Anion Gap 7 5-15 Blood Urea Nitrogen 20 9-23 mg/dL Creatinine 1.68 H 0.550-1.02 mg/dL Glomerular Filtration Rate Calc 31 >90 mL/min BUN/Creatinine Ratio 11.9 10.0-20.0 Serum Glucose 35 *L 74-106 mg/dL Hemoglobin A1c 7.5 H <5.7 % A1C Calcium Level 9.2 8.7-10.4 mg/dL Total Bilirubin 0.3 0.2-1.0 mg/dL Aspartate Amino Transferase (AST) 28 13-40 U/L Alanine Aminotransferase (ALT) 37 7-40 U/L Alkaline Phosphatase 78 46-116 U/L Total Protein 6.2 5.7-8.2 g/dL Albumin 3.3 3.2-4.8 g/dL Thyroid Stimulating Hormone (TSH) 1.11 0.55-4.78 uIU/mL Urine Color Yellow Yellow Urine Clarity Turbid H Clear Urine pH 5.5 5.0-9.0 Urine Specific [place] 1.024 1.001-1.035 Urine Protein 2+ H Negative Urine Ketones Negative Negative Urine Blood Negative Negative /uL Urine Nitrite Negative Negative Urine Bilirubin Negative Negative Urine Urobilinogen 2 H Negative mg/dL Urine Leukocyte Esterase Negative Negative /uL Urine RBC 2 0 - 4 /hpf Urine Microscopic WBC 4 0-5 /HPF Urine Squamous Epithelial Cells Few <5 /hpf Urine Bacteria Few H None Seen /hpf Urine Hyaline Casts Many 0 - 2 /lpf Urine Mucus Few None Seen Urine Glucose Trace Normal mg/dL Urine Opiates Screen Neg NEGATIVE Urine Fentanyl Screen Neg NEGATIVE Urine Barbiturates Screen Neg NEGATIVE Urine Phencyclidine Screen Neg NEGATIVE Urine Amphetamines Screen Neg NEGATIVE Urine Benzodiazepines Screen Neg NEGATIVE Urine Cocaine Screen Neg NEGATIVE Urine Cannabinoids Screen Neg NEGATIVE Blood Gas Specimen Type Arterial Blood Gas Sample Site Right radial Blood Gas Patient Temperature 37.0 Arterial Blood Date Drawn [id number] Arterial Blood pH 7.332 L 7.350-7.450 Arterial Blood Partial Pressure CO2 40.3 32.0-45.0 mmHg Arterial Blood Partial Pressure O2 221.5 H 83.0-108.0 mmHg Arterial Blood HCO3 20.9 L 21.0-28.0 mmol/L Arterial Blood Oxygen Saturation 99.5 H 94.0-98.0 % Arterial Blood Base Excess -4.7 L -2.0-3.0 mmol/L Arterial Blood Oxyhemoglobin 97.2 94.0-98.0 % Arterial Blood Carboxyhemoglobin 1.8 H 0.5-1.5 % Arterial Blood Methemoglobin 0.5 0.0-1.5 % Arterial Blood Deoxyhemoglobin 0.5 0.0-5.0 % Pancho Test Modified Blood Gas Total Hemoglobin 15.00 12.0-16.0 g/dL Blood Gas Set Respiration Rate 12.0 Blood Gas Modality Mask - bipap FiO2 % 100.0 Blood Gas EPAP 5 Blood Gas IPAP 12 Test 11/06/25 19:07 11/06/25 18:07 Range/Units Troponin I High Sensitivity 20 </=34 ng/L D-Dimer, Quantitative 4.64 H 0.0-0.49 mg/L FEU Lactic Acid Level 1.4 0.4-2.0 mmol/L B-Type Natriuretic Peptide 37.47 0-100 pg/mL Microbiology Date/Time Source Procedure Growth Status 11/06/25 18:15 Blood Blood Culture - Preliminary NO GROWTH AFTER 24 HOURS OF INCUBATION. Resulted Assessment Impression: Acute on chronic hypoxic respiratory failure Dependence on supplemental oxygen Pleural effusion, large, left. Atelectasis Chronic obstructive pulmonary disease Acute kidney injury Obesity Plan: Supplemental oxygen Titrate to keep O2 sats above 92%. On 4 LPM NC Taper O2 as tolerated. S/p left thoracentesis today with removal of 1.1 liters of fluid. Follow up pleural fluid cultures and cytology. CXR today reviewed, demonstrates: Complete opacification of the left hemithorax. No pneumothorax. Mild infiltrate, right lung base Chest CT (11/06/25) reveals: Large left pleural effusion occupying the entire left hemithorax with complete left lung collapse and concomitant shift of the mediastinal structures to the right. Subsolid perifissural lateral right lower lobe pulmonary nodule. V/Q scan shows low probability for PE. Bilateral lower extremity venous ultrasound negative for DVT. Continue bronchodilators. Continue antibiotics Incentive spirometry Blood pressure control. Accu-Cheks, ISS PRN. Diurese with Lasix as tolerated Monitor renal function. Monitor electrolytes. Supplement as necessary. Monitor ins and outs. Recommend diet and lifestyle modifications for weight reduction Obesity complicates all care DVT prophylaxis. Prognosis: Poor given patient's multiple co-morbidities. Rest of plan per hospitalist and other consultants. Thank you, Dr. Rashid, for allowing me to participate in this patient's care. Further recommendations will depend on the patient's clinical course. Please do not hesitate to contact me if you have any questions or concerns. This medical document was created using an electronic medical record system with [employer] dictation system. Although these documentations are being carefully reviewed, there may still be some phonetic and typographical changes. The errors are purely typographical, due to imperfection on the software program, and do not reflect any compromise in the patient's medical care. Plan discussed with: Patient, Other (LY Frausto/) Visit Coding Pulmonary Billing Provider: JORGITO ACEVES MD Date of Service if different f: Nov 07, 2025 Common Visit Codes: [id number] INP/OBS CARE (HIGH) JORGITO ACEVES MD Nov 07, 2025 23:28
[2025-11-08] VITALS (16 sets, daily range): BP systolic 108–128; BP diastolic 56–76; PULSE 66–82; RESP 16–20; TEMP 97.6–98.6; O2SAT 92–100
--- NOTE | 2025-11-08 05:42 | DVH ---
CHEST RADIOGRAPH INDICATION: PLEURAL EFFUSION TECHNIQUE: Single frontal view of the chest was obtained COMPARISON: XY CHEST XRAY 1 VIEW on DOS: 11/07/25, CT CHEST WITHOUT CONTRAST on DOS: 11/07/25, XY CHEST PORTABLE on DOS: 11/06/25 FINDINGS: Lines and Tubes: None Lungs: Stable appearing extensive left hemithoracic opacification consistent with Large pleural effusion and mild concomitant [id number] shift of the mediastinal structures. Mild diffuse increased prominence of the right hemithoracic pulmonary vasculature. No pneumothorax. Cardiomediastinal contours: Unremarkable Bones: Unremarkable IMPRESSION: 1. Stable appearing extensive left hemithoracic opacification consistent with large pleural effusion and mild concomitant [id number] shift of the mediastinal structures. 2. Mild diffuse increased prominence of the right hemithoracic pulmonary vasculature.
[2025-11-08 06:31] LABS: Mean Corpuscular Volume 79.4 fL (80.0-100.0)
[2025-11-08 06:34] LABS: Hematocrit 41.3 % (36.0-46.0); Hemoglobin 13.2 g/dL (12.2-16.2); Mean Corpuscular Hemoglobin 25.4 pg (28.0-32.0); Nucleated Red Blood Cells % 0.1 %
[2025-11-08 06:44] LABS: Anion Gap 6 (5-15); Carbon Dioxide 26 mmol/L (20-31); Potassium 4.8 mmol/L (3.5-5.1); Sodium 142 mmol/L (136-145)
[2025-11-08 06:46] LABS: Calcium 9.1 mg/dL (8.7-10.4)
[2025-11-08 06:47] LABS: Chloride 110 mmol/L (98-107)
[2025-11-08 06:51] LABS: BUN/Creatinine Ratio 11.3 (10.0-20.0); Blood Urea Nitrogen 17 mg/dL (9-23); Magnesium 2.4 mg/dL (1.6-2.6)
[2025-11-08 06:57] LABS: Glucose 37 mg/dL (74-106)
[2025-11-08] MEDS: ACCU-CHEK COMFORT CURVE STRIP VI ONE (07:00)
[2025-11-08] MEDS: NICOTINE 21MG/24 HR TOPICAL PATCH TD SCH (09:11)
--- NOTE | 2025-11-08 14:01 | DVHPNRES ---
Progress Note Date Seen: Nov 08, 2025 Resident Creating Document: MIKAL ZAPATA RESIDENT Medical Necessity Reason Pt with a Central, PICC or Fol: No Subjective Review of Systems Patient is 75 years old female with a past medical history of hypertension, diabetes mellitus type 2, COPD not on home oxygen came with a complaint of shortness of breaths. As per patient she has been having shortness of breaths for last 3 weeks, increased with the exertion. Patient also endorsed cough with whitish mucus. Patient denied any fever, palpitation, leg swelling/weight loss or anorexia. CXR revealed-Opacified left kamaljit thorax may represent a large pleural effusion. CT chest- Large left pleural effusion occupying the entire left hemithorax with complete left lung collapse and concomitant shift of the mediastinal structures to the right. Subsolid perifissural lateral right lower lobe pulmonary nodule. V/Q scan low probability for PE. Doppler study of the lower extremity nonsignificant per DVT. PMH-hypertension, diabetes mellitus type 2, COPD PSH- denies Allergy- and kidney Personal History/ Social History- chronic smoker for almost 50 years, denies alcoholism or drug abuse, lives with daughter and granddaughter. ROS Cardiovascular- shortness of breaths Respiratory cough, shortness of breath Gastrointestinal- denies any rectal bleeding, nausea or vomiting Musculoskeletal-denies acute joint swelling or tenderness or redness Neurological- denies acute dysarthria, dysphagia, change in vision Psychiatry- denies depression or SI or HI Skin- denies acute rash or purpura Patient is seen today at bedside Labs and chart reviewed Pleural fluid glucose 66, total protein 4.9, possible exudative pleural effusion Patient on NC O2 3 L/min Spoke to Radiology, plan is to do thoracentesis tomorrow again Patient on IV antibiotic Zosyn and azithromycin Precipitating drop of hemoglobin Patient with recurrent asymptomatic hypoglycemic episode, discontinued insulin With patient's permission Talked to patient's granddaughter Rosalva, , discussed patient's current medical condition, treatment plan and answered her questions Objective vital signs Vital Sign Date Time Temp Pulse Resp B/P (MAP) Pulse Ox O2 Delivery O2 Flow Rate FiO2 11/08/25 13:00 98.2 78 18 122/63 (82) 95 98.2 11/08/25 11:09 Nasal Cannula* 3 32 Total Intake and Output 11/07/25 11/07/2525 15:00 23:00 07:00 Intake Total 170 ml 900 ml Output Total 1100 ml Balance -1100 ml 170 ml 900 ml medications Current Medications Medications Dose Ordered Sig/Indra Route Start Time Stop Time Status Last Admin Dose Admin Nitroglycerin 0.4 mg Q5MINP PRN SL 11/06/25 20:15 Morphine Sulfate 2 mg Q30M PRN IV 11/06/25 20:15 Azithromycin 250 ml @ 125 mls/hr Q24H IV 11/07/25 21:00 11/07/25 21:05 125 MLS/HR Diagnostic Test (Pha) 1 strip ACHS 11/06/25 22:00 11/08/25 11:18 1 STRIP Dextrose 50 ml UD PRN IV 11/06/25 20:30 Ondansetron HCl 4 mg Q4HP PRN IV 11/06/25 20:30 Enoxaparin Sodium 30 mg DAILY SC 11/07/25 10:00 11/08/25 09:11 30 MG Acetaminophen 650 mg Q6HP PRN PO 11/06/25 20:30 Furosemide 20 mg DAILY PO 11/07/25 10:00 11/08/25 09:11 20 MG Diagnostic Test (Pha) 1 strip ACHS 11/07/25 17:00 11/08/25 11:18 1 STRIP Albuterol 2.5 mg Q6HWA NEB 11/07/25 18:00 11/08/25 11:09 2.5 MG Ipratropium [place] 0.5 mg Q6HWA NEB 11/07/25 18:00 11/08/25 11:09 0.5 MG Piperacillin Sod/ Tazobactam Sod 100 ml @ 25 mls/hr Q8HR IV 11/07/25 14:30 11/08/25 13:15 25 MLS/HR Nicotine 1 patch DAILY TD 11/08/25 10:00 11/08/25 09:11 1 PATCH Examination General examination- awake, alert HEENT- PEERLA, no acute nasal discharge Cardiovascular- S1-S2 audible, rate and rhythm regular, no murmur Respiratory- diminished breath sound of the left side of the lung Gastrointestinal-nontender, bowel sound+. Nondistended Musculoskeletal-no acute joint swelling or tenderness or redness Lower extremity- no leg edema Neurological- cranial nerves intact, no acute dysarthria or dysphagia Psychiatry- denies depression or SI or HI Skin- no acute rash or purpura laboratory and microbiology Laboratory Tests 11/08/25 04:56 Test 11/08/25 04:56 Range/Units Serum Glucose 37 *L 74-106 mg/dL Microbiology Date/Time Source Procedure Growth Status 11/07/25 18:00 Nose MRSA Screen - Final Complete 11/07/25 10:25 Pleural Fluid Gram Stain - Final Resulted 11/07/25 10:25 Pleural Fluid Body Fluid Culture - Preliminary No growth Resulted 11/06/25 18:15 Blood Blood Culture - Preliminary NO GROWTH AFTER 24 HOURS OF INCUBATION. Resulted Problem List/Assessment/Plan Problem List/Assessment/Plan #Acute hypoxic respiratory failure likely due to parapneumonic effusion/malignant pleural effusion, likely exudative with concomitant mediastinal shifting to the right # suspected pneumonia Gram-positive versus Gram-negative # suspected malignancy of the left lung # right lung pulmonary nodule # COPD - CXR revealed-Opacified left kamaljit thorax may represent a large pleural effusion. - CT chest- Large left pleural effusion occupying the entire left hemithorax with complete left lung collapse and concomitant shift of the mediastinal structures to the right. Subsolid perifissural lateral right lower lobe pulmonary nodule. - V/Q scan low probability for PE. - Doppler study of the lower extremity nonsignificant per DVT. -status post thoracentesis on the left side, 1.1 L fluid was removed by IR -pending cytology for pleural fluid, -Pleural fluid glucose 66, total protein 4.9 -pending blood culture, MRSA screening, respiratory culture -patient on Zosyn and azithromycin -nebulization PRN -continue Lasix -recommendation reviewed and appreciated -as per IR repeat thoracentesis tomorrow # [place] likely due to VMN -Avoid dehydration and nephrotoxic drug # hypertension -monitor blood pressure # diabetes mellitus type 2 with hyperglycemia -hemoglobin A1c 7.5 -insulin sliding scale Goals of care, Code status full code ; discussed with >15 minutes PUD prophylaxis: Pantoprazole DVT prophylaxis: Lovenox Plan discussed with Dr. Chowdary , nursing staff, Total time spent on patient evaluation, chart review, assessment and plan, discussion discussion >35 minutes Plan discussed with: Patient, Other (RN) My Orders My Orders Orders - MIKAL ZAPATA RESIDENT Procedure Category Date Status Time Lactate LAB 11/07/25 Logged Dehydrogenase, Fluid 14:47 Chest Portable XY 11/08/25 Resulted 04:00 Visit Coding STANDARD RES Billing Provider: RANDOLPH CROCKETT MD Date of Service if different f: Nov 08, 2025 Common Visit Codes: [id number] INP/OBS CARE(HIGH) MIKAL ZAPATA RESIDENT Nov 08, 2025 14:01
[2025-11-08 15:08] LABS: Glucose, Body Fluid 66.0 mg/dL (.)
--- NOTE | 2025-11-08 16:26 | DVHSR ---
APPROVED REPORT EXAM: LIMITED Two-dimensional and M-mode echocardiogram with Doppler and color Doppler. Blood Pressure: 132/104 mmHg INDICATION EF RISK FACTORS Obesity: Height: 5'0", Weight: 187 DIMENSIONS LVDd (3.8-5.7cm) LA (2D) 2.9 (1.9-4.0cm) Aortic Root 3.0 (2.0-3.7cm) LVDs (2.5-4.0cm) LA (MM) (1.9-4.0cm) Aortic Cusp Exc 1.1 (1.5-2.0cm) EF (%) 60.0 (55-70%) Rt. Atrium (1.9-4.0cm) Asc. Aorta cm Mitral Valve Mitral Mitral Stenosis E wave 1.09m/s MV Mean GR. mmHg A wave 1.49m/s MV Peak GR. mmHg E/A ratio 0.7 2D MVA cm2 DECEL Time 294ms PRESS 1/2 Time ms Aortic Valve Aortic Valve Aortic Stenosis V1 1.33m/s AO Mean GR. 8mmHg V2 2.10m/s AO Peak GR. 18mmHg LVOT Diameter 1.8 (1.8-2.4cm) Doppler KARISHMA 1.61cm2 Other Information Quality : Technically Limited Rhythm : Technically limited study due to body habitus, large pleural effusion. Conclusion limited study lvef 60% moderat eLV cannot assess valves well significant pleural effusion, consider imaging or pulm consult for this, this distors most heart images small pericardial effusion, circumfrerential , no HD collapse noted
[2025-11-08 17:22] LABS: Protein, Urine 44.7 mg/dL (1-14)
--- NOTE | 2025-11-08 22:54 | DVHPN2 ---
Subjective DOS: 11/08/2025 Patient seen and examined at bedside. Remains on supplemental oxygen Overnight events reviewed. Changes from previous H/P or p: No Changes Objective Vitals Vital Signs Date Time Temp Pulse Resp B/P (MAP) Pulse Ox O2 Delivery O2 Flow Rate FiO2 11/08/25 21:00 97.9 68 17 111/56 (74) 96 97.9 11/08/25 18:02 Nasal Cannula 3.0 11/08/25 18:02 32 Intake/Output Intake and Output 11/08/25 07:00 Intake Total 1070 ml Output Total 1100 ml Balance -30 ml Intake Oral 720 ml IV Total 350 ml Output Drainage Total 1100 ml # Voids 7 Exam Gen.: Patient lying in bed in no apparent distress. On supplemental oxygen. Head: Normocephalic, atraumatic. Eyes: EOMI/PERRLA. Ears: Normal hearing. Normal anatomy. Neck/trachea: Trachea midline, supple. Nose: Normal external anatomy. Mouth: Moist mucous membranes. Chest: Decreased air entry bilaterally. No wheezing or rhonchi. Cardiovascular: Positive S1, positive S2. Regular rate and rhythm. Abdomen: Positive bowel sounds in all 4 quadrants. Soft, non-tender, non- distended. : Deferred. Rectal: Deferred. Skin: Warm, dry. Intact. Extremities: 2+ radial pulses bilaterally. No lower extremity edema. Neuro: Awake, alert, oriented x3. No gross motor or sensory deficits. Cranial nerves II through XII intact. Gait not assessed. Medications Current Medications Medications Dose Ordered Sig/Indra Route Start Time Stop Time Status Last Admin Dose Admin Nitroglycerin 0.4 mg Q5MINP PRN SL 11/06/25 20:15 Morphine Sulfate 2 mg Q30M PRN IV 11/06/25 20:15 Azithromycin 250 ml @ 125 mls/hr Q24H IV 11/07/25 21:00 11/08/25 20:33 125 MLS/HR Diagnostic Test (Pha) 1 strip ACHS 11/06/25 22:00 11/08/25 22:44 1 STRIP Dextrose 50 ml UD PRN IV 11/06/25 20:30 Ondansetron HCl 4 mg Q4HP PRN IV 11/06/25 20:30 Enoxaparin Sodium 30 mg DAILY SC 11/07/25 10:00 11/08/25 09:11 30 MG Acetaminophen 650 mg Q6HP PRN PO 11/06/25 20:30 Furosemide 20 mg DAILY PO 11/07/25 10:00 11/08/25 09:11 20 MG Diagnostic Test (Pha) 1 strip ACHS 11/07/25 17:00 11/08/25 22:44 1 STRIP Albuterol 2.5 mg Q6HWA NEB 11/07/25 18:00 11/08/25 18:02 2.5 MG Ipratropium [place] 0.5 mg Q6HWA [facility] 11/07/25 18:00 11/08/25 18:02 0.5 MG Piperacillin Sod/ Tazobactam Sod 100 ml @ 25 mls/hr Q8HR IV 11/07/25 14:30 11/08/25 13:15 25 MLS/HR Nicotine 1 patch DAILY TD 11/08/25 10:00 11/08/25 09:11 1 PATCH Laboratory Results Laboratory Tests 11/08/25 04:56 Chemistry Test 11/08/25 04:56 Calcium Level 9.1 mg/dL (8.7-10.4) Magnesium Level 2.4 mg/dL (1.6-2.6) Urinalysis Test 11/07/25 01:11 11/08/25 17:03 Urine Color Yellow (Yellow) Urine Clarity Turbid (Clear) H Urine pH 5.5 (5.0-9.0) Urine Specific [place] 1.024 (1.001-1.035) Urine Protein 2+ (Negative) H Urine Ketones Negative (Negative) Urine Blood Negative /uL (Negative) Urine Nitrite Negative (Negative) Urine Bilirubin Negative (Negative) Urine Urobilinogen 2 mg/dL (Negative) H Urine Leukocyte Esterase Negative /uL (Negative) Urine RBC 2 /hpf (0 - 4) Urine Microscopic WBC 4 /HPF (0-5) Urine Squamous Epithelial Cells Few /hpf (<5) Urine Bacteria Few /hpf (None Seen) H Urine Hyaline Casts Many /lpf (0 - 2) Urine Mucus Few (None Seen) Urine Glucose Trace mg/dL (Normal) Urine Creatinine 57.37 mg/dL (30.0-125.0) Urine Protein/Creatinine Ratio 0.78 Urine Sodium 66 mmol/L (40-220) Urine Total Protein 44.7 mg/dL (1-14) H Microbiology Microbiology Date/Time Source Procedure Growth Status 11/07/25 18:00 Nose MRSA Screen - Final Complete 11/07/25 10:25 Pleural Fluid Gram Stain - Final Resulted 11/07/25 10:25 Pleural Fluid Body Fluid Culture - Preliminary No growth Resulted 11/06/25 18:15 Blood Blood Culture - Preliminary NO GROWTH AFTER 48 HOURS OF INCUBATION. Resulted Assessment/Plan Assessment/Plan Impression: Acute on chronic hypoxic respiratory failure Dependence on supplemental oxygen Pleural effusion, large, left. Atelectasis Chronic obstructive pulmonary disease Acute kidney injury Obesity Events: Remains on supplemental oxygen, 3 LPM NC Taper O2 as tolerated S/p thoracentesis, 1.1 L fluid removed by IR. Cytology shows pleural fluid glucose 66, total protein 4.9, possible exudative pleural effusion Radiology plans to repeat thoracentesis tomorrow Continue bronchodilators Continue IV antibiotics, Zosyn and azithromycin MRSA negative Blood cx show no growth Monitor hemoglobin - trended down to 13.2 g/dL Transfuse if less than 7.0 g/dL. Patient with recurrent asymptomatic hypoglycemic episode, discontinued insulin. Continue to monitor blood sugars Continue diuresis with Lasix Monitor renal function. Monitor electrolytes. Supplement as necessary. Nicotine patch Labs and imaging reviewed. Rest of plan as noted below. Plan: Supplemental oxygen Titrate to keep O2 sats above 92%. CXR (11/07) demonstrates complete opacification of the left hemithorax. No pneumothorax. Mild infiltrate, right lung base S/p left thoracentesis on 11/07/25 with removal of 1.1 liters of fluid. Chest CT (11/06) reveals: Large left pleural effusion occupying the entire left hemithorax with complete left lung collapse and concomitant shift of the mediastinal structures to the right. Subsolid perifissural lateral right lower lobe pulmonary nodule. V/Q scan shows low probability for PE. Bilateral lower extremity venous ultrasound negative for DVT. Continue bronchodilators. Continue antibiotics Incentive spirometry Blood pressure control. Accu-Cheks, ISS PRN. Diurese with Lasix as tolerated Monitor renal function. Monitor electrolytes. Supplement as necessary. Monitor ins and outs. Recommend diet and lifestyle modifications for weight reduction Obesity complicates all care DVT prophylaxis. Prognosis: Poor given patient's multiple co-morbidities. Rest of plan per hospitalist and other consultants. Thank you, Dr. Rashid, for allowing me to participate in this patient's care. Further recommendations will depend on the patient's clinical course. Please do not hesitate to contact me if you have any questions or concerns. This medical document was created using an electronic medical record system with [employer] dictation system. Although these documentations are being carefully reviewed, there may still be some phonetic and typographical changes. The errors are purely typographical, due to imperfection on the software program, and do not reflect any compromise in the patient's medical care. Plan discussed with: Patient, Other (LY Odell) Visit Coding Pulmonary Billing Provider: JORGITO ACEVES MD Date of Service if different f: Nov 08, 2025 Common Visit Codes: [id number] INP/OBS CARE(HIGH) JORGITO ACEVES MD Nov 08, 2025 22:54
[2025-11-09] VITALS (14 sets, daily range): BP systolic 115–137; BP diastolic 55–95; PULSE 63–86; RESP 16–20; TEMP 97.2–98.8; O2SAT 92–100
[2025-11-09 06:38] LABS: Mean Corpuscular Volume 78.4 fL (80.0-100.0)
[2025-11-09 06:41] LABS: Hematocrit 40.4 % (36.0-46.0); Hemoglobin 12.9 g/dL (12.2-16.2); Mean Corpuscular Hemoglobin 25.1 pg (28.0-32.0); Nucleated Red Blood Cells % 0.0 %
[2025-11-09 06:48] LABS: Anion Gap 7 (5-15); Calcium 9.2 mg/dL (8.7-10.4); Carbon Dioxide 25 mmol/L (20-31); Potassium 4.9 mmol/L (3.5-5.1); Sodium 141 mmol/L (136-145)
[2025-11-09 06:53] LABS: Chloride 109 mmol/L (98-107)
[2025-11-09 06:54] LABS: BUN/Creatinine Ratio 10.5 (10.0-20.0); Blood Urea Nitrogen 17 mg/dL (9-23)
[2025-11-09 06:55] LABS: Magnesium 2.2 mg/dL (1.6-2.6)
[2025-11-09 07:03] LABS: Glucose 121 mg/dL (74-106)
[2025-11-09 13:07] LABS: INR 1.03 (0.9-1.15); Partial Thromboplastin Time 29.3 SEC (24.5-34.5); Prothrombin Time 10.9 sec (9.3-11.8)
--- NOTE | 2025-11-09 13:11 | DVH ---
Left Chest Sonogram Date: 11/09/2025 12:16 PM CLINICAL HISTORY: evaluate pleural effusion for possible thora FINDINGS: Limited sonographic evaluation of the left chest was performed to localize and beverly fluid for thoracentesis. There is a large left pleural effusion. IMPRESSION: Large left pleural effusion END IMPRESSION:
--- NOTE | 2025-11-09 14:45 | DVHPNRES ---
Progress Note Date Seen: Nov 09, 2025 Resident Creating Document: MIKAL ZAPATA RESIDENT Medical Necessity Reason Pt with a Central, PICC or Fol: No Subjective Review of Systems Patient is 75 years old female with a past medical history of hypertension, diabetes mellitus type 2, COPD not on home oxygen came with a complaint of shortness of breaths. As per patient she has been having shortness of breaths for last 3 weeks, increased with the exertion. Patient also endorsed cough with whitish mucus. Patient denied any fever, palpitation, leg swelling/weight loss or anorexia. CXR revealed-Opacified left kamaljit thorax may represent a large pleural effusion. CT chest- Large left pleural effusion occupying the entire left hemithorax with complete left lung collapse and concomitant shift of the mediastinal structures to the right. Subsolid perifissural lateral right lower lobe pulmonary nodule. V/Q scan low probability for PE. Doppler study of the lower extremity nonsignificant per DVT. PMH-hypertension, diabetes mellitus type 2, COPD PSH- denies Allergy- and kidney Personal History/ Social History- chronic smoker for almost 50 years, denies alcoholism or drug abuse, lives with daughter and granddaughter. ROS Cardiovascular- shortness of breaths Respiratory cough, shortness of breath Gastrointestinal- denies any rectal bleeding, nausea or vomiting Musculoskeletal-denies acute joint swelling or tenderness or redness Neurological- denies acute dysarthria, dysphagia, change in vision Psychiatry- denies depression or SI or HI Skin- denies acute rash or purpura Patient is seen today at bedside Labs and chart reviewed Patient had thoracentesis today by Dr. Worthy, had 2.3 L of fluid drained, sent for CEA Ordered CT chest with contrast Ultrasound of the chest revealed large left-sided pleural effusion Patient on [place] O2 2 L per oxygen Echo 2D revealed LVEF 60% Blood culture negative, pleural fluid culture negative, MRSA screening negative, Discontinued IV antibiotic With patient's permission Talked to patient's granddaughter Rosalva [phone], discussed patient's current medical condition, treatment plan and answered her questions Objective vital signs Vital Sign Date Time Temp Pulse Resp B/P (MAP) Pulse Ox O2 Delivery O2 Flow Rate FiO2 11/09/25 13:00 98.6 73 17 124/73 (90) 92 98.6 11/09/25 12:20 Nasal Cannula* 3 32 Total Intake and Output 11/08/25 11/08/25 11/09/25 15:00 23:00 07:00 Intake Total 100 ml 1260 ml 970 ml Output Total 640 ml Balance 100 ml 1260 ml 330 ml medications Current Medications Medications Dose Ordered Sig/Indra Route Start Time Stop Time Status Last Admin Dose Admin Nitroglycerin 0.4 mg Q5MINP PRN SL 11/06/25 20:15 Morphine Sulfate 2 mg Q30M PRN IV 11/06/25 20:15 Azithromycin 250 ml @ 125 mls/hr Q24H IV 11/07/25 21:00 11/08/25 20:33 125 MLS/HR Diagnostic Test (Pha) 1 strip ACHS 11/06/25 22:00 11/09/25 11:08 1 STRIP Dextrose 50 ml UD PRN IV 11/06/25 20:30 Ondansetron HCl 4 mg Q4HP PRN IV 11/06/25 20:30 Enoxaparin Sodium 30 mg DAILY SC 11/07/25 10:00 11/09/25 13:21 30 MG Acetaminophen 650 mg Q6HP PRN PO 11/06/25 20:30 Diagnostic Test (Pha) 1 strip ACHS 11/07/25 17:00 11/09/25 11:08 1 STRIP Albuterol 2.5 mg Q6HWA NEB 11/07/25 18:00 11/09/25 12:20 2.5 MG Ipratropium [place] 0.5 mg Q6HWA NEB 11/07/25 18:00 11/09/25 12:20 0.5 MG Piperacillin Sod/ Tazobactam Sod 100 ml @ 25 mls/hr Q8HR IV 11/07/25 14:30 11/09/25 13:21 25 MLS/HR Nicotine 1 patch DAILY TD 11/08/25 10:00 11/09/25 08:34 1 PATCH Examination General examination- awake, alert HEENT- PEERLA, no acute nasal discharge Cardiovascular- S1-S2 audible, rate and rhythm regular, no murmur Respiratory- diminished breath sound of the left side of the lung Gastrointestinal-nontender, bowel sound+. Nondistended Musculoskeletal-no acute joint swelling or tenderness or redness Lower extremity- no leg edema Neurological- cranial nerves intact, no acute dysarthria or dysphagia Psychiatry- denies depression or SI or HI Skin- no acute rash or purpura laboratory and microbiology Laboratory Tests 11/09/25 04:48 Test 11/09/25 04:48 Range/Units Serum Glucose 121 H 74-106 mg/dL Microbiology Date/Time Source Procedure Growth Status 11/07/25 18:00 Nose MRSA Screen - Final Complete 11/07/25 10:25 Pleural Fluid Gram Stain - Final Resulted 11/07/25 10:25 Pleural Fluid Body Fluid Culture - Preliminary No growth Resulted 11/06/25 18:15 Blood Blood Culture - Preliminary NO GROWTH AFTER 48 HOURS OF INCUBATION. Resulted Problem List/Assessment/Plan Problem List/Assessment/Plan #Acute hypoxic respiratory failure likely due to parapneumonic effusion/malignant pleural effusion, likely exudative with concomitant mediastinal shifting to the right # suspected pneumonia Gram-positive versus Gram-negative # suspected malignancy of the left lung # right lung pulmonary nodule # COPD - CXR revealed-Opacified left kamaljit thorax may represent a large pleural effusion. - CT chest- Large left pleural effusion occupying the entire left hemithorax with complete left lung collapse and concomitant shift of the mediastinal structures to the right. Subsolid perifissural lateral right lower lobe pulmonary nodule. - V/Q scan low probability for PE. - Doppler study of the lower extremity nonsignificant per DVT. On 11/09/2025 Patient had thoracentesis today by Dr. Worthy, had 2.3 L of fluid drained, sent for CEA Ordered CT chest with contrast -pending cytology for pleural fluid, -Pleural fluid glucose 66, total protein 4.9 -Echo 2D revealed LVEF 60%, small pericardial effusion -blood culture negative, body fluid culture/pleural fluid culture no growth so far, MRSA screening negative -discontinued IV antibiotic -nebulization PRN -continue Lasix -recommendation reviewed and appreciated -as per IR repeat thoracentesis tomorrow # [place] likely due to VMN -Avoid dehydration and nephrotoxic drug # hypertension -monitor blood pressure # diabetes mellitus type 2 with hyperglycemia -hemoglobin A1c 7.5 -insulin sliding scale Goals of care, Code status full code ; discussed with >15 minutes PUD prophylaxis: Pantoprazole DVT prophylaxis: Lovenox Plan discussed with Dr. Chowdary , nursing staff, Total time spent on patient evaluation, chart review, assessment and plan, discussion discussion >35 minutes Plan discussed with: Patient, Other (Granddaughter, RN) My Orders My Orders Orders - MIKAL ZAPATA Procedure Category Date Status Time * Radiologist Consult CONS 11/09/25 Transmitted 10:53 Visit Coding STANDARD RES Billing Provider: RANDOLPH CROCKETT MD Date of Service if different f: Nov 09, 2025 Common Visit Codes: [id number] INP/OBS CARE(HIGH) MIKAL ZAPATA Nov 09, 2025 14:45
--- NOTE | 2025-11-09 21:15 | DVHNC2 ---
Procedure - Thoracentesis Procedure Note under ultrasound guidance INDICATION: Left sided pleural effusion PHYSICIAN: Link Worthy MD ASST: LY Cisneros CONSENT: Consent was obtained from patient/patient's HCP prior to the procedure. Indications, risks, and benefits were explained at length. Time out time: 1645 hours Risks and benefits of the procedure and sedation options and risks were discussed with the patient/patient's HCP. All questions were answered and informed consent was obtained. Patient identification and proposed procedure were verified prior to the procedure by the physician, and the nurse in the patient's room. PROCEDURE SUMMARY: A time out was performed and the chest x-ray was reviewed, the appropriate side was confirmed and marked. My hands were washed immediately prior to the procedure. I wore a surgical cap, mask with protective eyewear, sterile gown and sterile gloves throughout the procedure. The patient was prepped and draped in a sterile manner using chlorhexidine scrub after the appropriate level was percussed and confirmed by ultrasound. 1% lidocaine was used to anesthesize the skin, subcutaneous tissue, superior aspect of the rib periosteum and parietal pleura. A finder needle was then introduced over the superior aspect of the rib to locate the pleural fluid; yellow-straw colored fluid was aspirated at a depth of approximately 2 cm. A 10-blade scalpel was used to jed the skin at the insertion site. Under real-time ultrasound guidance, the 5 Amharic Yueh Thora-Centesis needle was then introduced through the skin incision into the pleural space using negative aspiration pressure. The thoracentesis catheter was then threaded without difficulty. 2.3 liters of alis colored fluid was removed without difficulty. The catheter was then removed. No immediate complications were noted during the procedure. Using the linear probe, lung sliding was noted anteriorly and posteriorly and are an indication of no pneumothorax. A post-procedure chest x-ray is pending at the time of this note. The fluid will be sent for studies cell count and differential, fluid LDH, glucose, albumin and total protein, gram stain and culture, and cytology. Estimated blood loss is less than 5 mL. CPT: 04627 Visit Coding Pulmonary Billing Provider: JORGITO WORTHY MD Date of Service if different f: Nov 09, 2025 Common Visit Codes: PROCEDURE ONLY Procedure Codes: [id number] (72473 Left thoracentesis) JORGITO WORTHY MD Nov 09, 2025 21:15
[2025-11-09] MEDS: ACETAMINOPHEN 325 MG TAB PO PRN (22:35)
[2025-11-10] VITALS (14 sets, daily range): BP systolic 111–142; BP diastolic 52–74; PULSE 57–78; RESP 17–22; TEMP 97.3–97.9; O2SAT 95–100
--- NOTE | 2025-11-10 08:13 | DVHPN2 ---
Subjective DOS: 11/09/2025 Patient seen and examined at bedside. Remains on supplemental oxygen Overnight events reviewed. Changes from previous H/P or p: No Changes Objective Vitals Vital Signs Date Time Temp Pulse Resp B/P (MAP) Pulse Ox O2 Delivery O2 Flow Rate FiO2 11/10/25 07:27 57 17 98 11/10/25 07:21 Nasal Cannula* 3 32 11/10/25 05:00 97.7 118/55 (76) 97.7 Intake/Output Intake and Output 11/10/25 07:00 Intake Total 1618 ml Output Total 1255 ml Balance 363 ml Intake Oral 1488 ml IV Total 130 ml Output Urine Total 1255 ml # Bowel Movements 3 Exam Gen.: Patient lying in bed in no apparent distress. On supplemental oxygen. Head: Normocephalic, atraumatic. Eyes: EOMI/PERRLA. Ears: Normal hearing. Normal anatomy. Neck/trachea: Trachea midline, supple. Nose: Normal external anatomy. Mouth: Moist mucous membranes. Chest: Decreased air entry bilaterally. No wheezing or rhonchi. Cardiovascular: Positive S1, positive S2. Regular rate and rhythm. Abdomen: Positive bowel sounds in all 4 quadrants. Soft, non-tender, non- distended. : Deferred. Rectal: Deferred. Skin: Warm, dry. Intact. Extremities: 2+ radial pulses bilaterally. No lower extremity edema. Neuro: Awake, alert, oriented x3. No gross motor or sensory deficits. Cranial nerves II through XII intact. Gait not assessed. Medications Current Medications Medications Dose Ordered Sig/Indra Route Start Time Stop Time Status Last Admin Dose Admin Nitroglycerin 0.4 mg Q5MINP PRN SL 11/06/25 20:15 Morphine Sulfate 2 mg Q30M PRN IV 11/06/25 20:15 Diagnostic Test (Pha) 1 strip ACHS 11/06/25 22:00 11/09/25 22:00 1 STRIP Dextrose 50 ml UD PRN IV 11/06/25 20:30 Ondansetron HCl 4 mg Q4HP PRN IV 11/06/25 20:30 Enoxaparin Sodium 30 mg DAILY SC 11/07/25 10:00 11/09/25 13:21 30 MG Acetaminophen 650 mg Q6HP PRN PO 11/06/25 20:30 11/09/25 22:35 650 MG Diagnostic Test (Pha) 1 strip ACHS 11/07/25 17:00 11/09/25 22:00 1 STRIP Albuterol 2.5 mg Q6HWA [facility] 11/07/25 18:00 11/10/25 07:21 2.5 MG Ipratropium Simpson 0.5 mg Q6HWA [facility] 11/07/25 18:00 11/10/25 07:21 0.5 MG Nicotine 1 patch DAILY TD 11/08/25 10:00 11/09/25 08:34 1 PATCH Laboratory Results Laboratory Tests 11/09/25 04:48 Coagulation Test 11/09/25 12:36 Prothrombin Time 10.9 sec (9.3-11.8) Prothrombin Time INR 1.03 (0.9-1.15) Activated Partial Thromboplast Time 29.3 SEC (24.5-34.5) Urinalysis Test 11/07/25 01:11 11/08/25 17:03 Urine Color Yellow (Yellow) Urine Clarity Turbid (Clear) H Urine pH 5.5 (5.0-9.0) Urine Specific [place] 1.024 (1.001-1.035) Urine Protein 2+ (Negative) H Urine Ketones Negative (Negative) Urine Blood Negative /uL (Negative) Urine Nitrite Negative (Negative) Urine Bilirubin Negative (Negative) Urine Urobilinogen 2 mg/dL (Negative) H Urine Leukocyte Esterase Negative /uL (Negative) Urine RBC 2 /hpf (0 - 4) Urine Microscopic WBC 4 /HPF (0-5) Urine Squamous Epithelial Cells Few /hpf (<5) Urine Bacteria Few /hpf (None Seen) H Urine Hyaline Casts Many /lpf (0 - 2) Urine Mucus Few (None Seen) Urine Glucose Trace mg/dL (Normal) Urine Creatinine 57.37 mg/dL (30.0-125.0) Urine Protein/Creatinine Ratio 0.78 Urine Sodium 66 mmol/L (40-220) Urine Total Protein 44.7 mg/dL (1-14) H Microbiology Microbiology Date/Time Source Procedure Growth Status 11/07/25 18:00 Nose MRSA Screen - Final Complete 11/07/25 10:25 Pleural Fluid Gram Stain - Final Resulted 11/07/25 10:25 Pleural Fluid Body Fluid Culture - Preliminary No growth Resulted 11/06/25 18:15 Blood Blood Culture - Preliminary NO GROWTH AFTER 72 HOURS OF INCUBATION. Resulted Assessment/Plan Assessment/Plan Impression: Acute on chronic hypoxic respiratory failure Dependence on supplemental oxygen Pleural effusion, large, left. Atelectasis Chronic obstructive pulmonary disease Acute kidney injury Obesity Events: Remains on supplemental oxygen, 2 LPM NC Taper O2 as tolerated Improving O2 requirements S/p left thoracentesis today - drained 2.3 liters. Pleural fluid sent for CEA testing Chest x-ray post procedure is pending. Plan to obtain CT chest with contrast for further evaluation. S/p thoracentesis, 1.1 L fluid removed by IR on 11/07/25. Cytology shows pleural fluid glucose 66, total protein 4.9, possible exudative pleural effusion Echo 2D revealed LVEF 60%, small pericardial effusion. Cardiology recs appreciated Continue bronchodilators Continue IV antibiotics, Zosyn and azithromycin MRSA negative Blood cx, pleural fluid cx show no growth thus far. Monitor hemoglobin Transfuse if less than 7.0 g/dL. Patient with recurrent asymptomatic hypoglycemic episode, discontinued insulin. Continue to monitor blood sugars Continue diuresis with Lasix Monitor renal function. Monitor electrolytes. Supplement as necessary. Nicotine patch Labs and imaging reviewed. Rest of plan as noted below. Plan: Supplemental oxygen Titrate to keep O2 sats above 92%. CXR (11/07) demonstrates complete opacification of the left hemithorax. No pneumothorax. Mild infiltrate, right lung base S/p left thoracentesis on 11/07/25 with removal of 1.1 liters of fluid. Chest CT (11/06) reveals: Large left pleural effusion occupying the entire left hemithorax with complete left lung collapse and concomitant shift of the mediastinal structures to the right. Subsolid perifissural lateral right lower lobe pulmonary nodule. V/Q scan shows low probability for PE. Bilateral lower extremity venous ultrasound negative for DVT. Continue bronchodilators. Continue antibiotics Incentive spirometry Blood pressure control. Accu-Cheks, ISS PRN. Diurese with Lasix as tolerated Monitor renal function. Monitor electrolytes. Supplement as necessary. Monitor ins and outs. Recommend diet and lifestyle modifications for weight reduction Obesity complicates all care DVT prophylaxis. Prognosis: Poor given patient's multiple co-morbidities. Rest of plan per hospitalist and other consultants. Thank you, Dr. Rashid, for allowing me to participate in this patient's care. Further recommendations will depend on the patient's clinical course. Please do not hesitate to contact me if you have any questions or concerns. This medical document was created using an electronic medical record system with [employer] dictation system. Although these documentations are being carefully reviewed, there may still be some phonetic and typographical changes. The errors are purely typographical, due to imperfection on the software program, and do not reflect any compromise in the patient's medical care. Plan discussed with: Patient, Other (RN) Visit Coding Pulmonary Billing Provider: JORGITO ACEVES MD Date of Service if different f: Nov 09, 2025 Common Visit Codes: [id number] INP/OBS CARE(HIGH) JORGITO ACEVES MD Nov 10, 2025 08:13
[2025-11-10] MEDS: AZITHROMYCIN 250 MG TAB PO SCH (09:56)
[2025-11-10 10:14] LABS: Hemoglobin 14.0 g/dL (12.2-16.2); Nucleated Red Blood Cells % 0.1 %
[2025-11-10 10:16] LABS: Hematocrit 43.6 % (36.0-46.0); Mean Corpuscular Hemoglobin 25.3 pg (28.0-32.0); Mean Corpuscular Volume 79.1 fL (80.0-100.0)
[2025-11-10 10:24] LABS: Potassium 5.0 mmol/L (3.5-5.1); Sodium 139 mmol/L (136-145)
[2025-11-10 10:25] LABS: Anion Gap 4 (5-15); Calcium 9.4 mg/dL (8.7-10.4); Carbon Dioxide 26 mmol/L (20-31)
[2025-11-10 10:30] LABS: Magnesium 2.1 mg/dL (1.6-2.6)
[2025-11-10 10:31] LABS: BUN/Creatinine Ratio 7.6 (10.0-20.0); Blood Urea Nitrogen 10 mg/dL (9-23)
[2025-11-10 10:33] LABS: Chloride 109 mmol/L (98-107); Glucose 177 mg/dL (74-106)
--- NOTE | 2025-11-10 12:53 | DVHPNRES ---
Progress Note Date Seen: Nov 10, 2025 Resident Creating Document: MIKAL ZAPATA RESIDENT Medical Necessity Reason Pt with a Central, PICC or Fol: No Subjective Review of Systems Patient is 75 years old female with a past medical history of hypertension, diabetes mellitus type 2, COPD not on home oxygen came with a complaint of shortness of breaths. As per patient she has been having shortness of breaths for last 3 weeks, increased with the exertion. Patient also endorsed cough with whitish mucus. Patient denied any fever, palpitation, leg swelling/weight loss or anorexia. CXR revealed-Opacified left kamaljit thorax may represent a large pleural effusion. CT chest- Large left pleural effusion occupying the entire left hemithorax with complete left lung collapse and concomitant shift of the mediastinal structures to the right. Subsolid perifissural lateral right lower lobe pulmonary nodule. V/Q scan low probability for PE. Doppler study of the lower extremity nonsignificant per DVT. PMH-hypertension, diabetes mellitus type 2, COPD PSH- denies Allergy- and kidney Personal History/ Social History- chronic smoker for almost 50 years, denies alcoholism or drug abuse, lives with daughter and granddaughter. ROS Cardiovascular- shortness of breaths Respiratory cough, shortness of breath Gastrointestinal- denies any rectal bleeding, nausea or vomiting Musculoskeletal-denies acute joint swelling or tenderness or redness Neurological- denies acute dysarthria, dysphagia, change in vision Psychiatry- denies depression or SI or HI Skin- denies acute rash or purpura Patient is seen today at bedside Labs and chart reviewed Patient breathing in room air, reported her breathing is much better than before Ordered nephrology consult for suspected [place] on CKD and also for clearance for CT chest with contrast Ordered CT chest with contrast -S/P presumed left-sided thoracentesis and presumed trapped lung creating appearance of pneumothorax.Persistent complete collapse versus masslike appearance of the left upper lobe which is failing to re-expand. Mild re-expansion of the left lower lobe however with left infrahilar suspected mass measuring 4 x 3.3 cm and marginal interstitial areas of nodular thickening with superimposed cystic lung change. Persistent small residual left-sided pleural effusion with pleural-based nodularity/thickening concerning for malignant ascites. Peripheral interstitial nodular areas of the periphery of the right upper lobe and right lower lobe measuring 2-3 mm of indeterminate etiology and differential includes pulmonary metastatic disease versus infectious/inflammatory etiology. Kidney ultrasound revealed medical renal disease Pleural fluid cytology consistent with metastatic pulmonary adenocarcinoma Spoke to patient's granddaughter Rosalva, , discussed patient's current medical condition, treatment plan and answered her questions Objective vital signs Vital Sign Date Time Temp Pulse Resp B/P (MAP) Pulse Ox O2 Delivery O2 Flow Rate FiO2 11/10/25 12:50 97.3 70 22 124/52 (76) 97 97.3 11/10/25 11:41 Nasal Cannula* 3 32 Total Intake and Output 11/09/25 11/09/25 11/10/25 15:00 23:00 07:00 Intake Total 130 ml 1300 ml 188 ml Output Total 1250 ml 5 ml Balance 130 ml 50 ml 183 ml medications Current Medications Medications Dose Ordered Sig/Indra Route Start Time Stop Time Status Last Admin Dose Admin Nitroglycerin 0.4 mg Q5MINP PRN SL 11/06/25 20:15 Morphine Sulfate 2 mg Q30M PRN IV 11/06/25 20:15 Dextrose 50 ml UD PRN IV 11/06/25 20:30 Ondansetron HCl 4 mg Q4HP PRN IV 11/06/25 20:30 Enoxaparin Sodium 30 mg DAILY SC 11/07/25 10:00 11/10/25 09:56 30 MG Acetaminophen 650 mg Q6HP PRN PO 11/06/25 20:30 11/09/25 22:35 650 MG Diagnostic Test (Pha) 1 strip ACHS 11/07/25 17:00 11/10/25 12:08 1 STRIP Albuterol 2.5 mg Q6HWA [facility] 11/07/25 18:00 11/10/25 11:41 2.5 MG Ipratropium [place] 0.5 mg Q6HWA NEB 11/07/25 18:00 11/10/25 11:41 0.5 MG Nicotine 1 patch DAILY TD 11/08/25 10:00 11/10/25 09:57 1 PATCH Ceftriaxone Sodium 50 ml @ 100 mls/hr DAILY@09 IV 11/10/25 09:00 11/10/25 09:56 100 MLS/HR Azithromycin 250 mg DAILY PO 11/10/25 10:00 11/10/25 09:56 250 MG Examination General examination- awake, alert HEENT- PEERLA, no acute nasal discharge Cardiovascular- S1-S2 audible, rate and rhythm regular, no murmur Respiratory- diminished breath sound of the left side of the lung Gastrointestinal-nontender, bowel sound+. Nondistended Musculoskeletal-no acute joint swelling or tenderness or redness Lower extremity- no leg edema Neurological- cranial nerves intact, no acute dysarthria or dysphagia Psychiatry- denies depression or SI or HI Skin- no acute rash or purpura laboratory and microbiology Laboratory Tests 11/10/25 09:37 Test 11/10/25 09:37 Range/Units Serum Glucose 177 H 74-106 mg/dL Microbiology Date/Time Source Procedure Growth Status 11/07/25 18:00 Nose MRSA Screen - Final Complete 11/07/25 10:25 Pleural Fluid Gram Stain - Final Resulted 11/07/25 10:25 Pleural Fluid Body Fluid Culture - Preliminary No growth Resulted 11/06/25 18:15 Blood Blood Culture - Preliminary NO GROWTH AFTER 72 HOURS OF INCUBATION. 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 - CT chest- Large left pleural effusion occupying the entire left hemithorax with complete left lung collapse and concomitant shift of the mediastinal structures to the right. Subsolid perifissural lateral right lower lobe pulmonary nodule. - V/Q scan low probability for PE. - Doppler study of the lower extremity nonsignificant per DVT. On 11/09/2025 Patient had thoracentesis today by Dr. Worthy, had 2.3 L of fluid drained, sent for CEA - reviewed CT chest with contrast -S/P presumed left-sided thoracentesis and presumed trapped lung creating appearance of pneumothorax.Persistent complete collapse versus masslike appearance of the left upper lobe which is failing to re-expand. Mild re-expansion of the left lower lobe however with left infrahilar suspected mass measuring 4 x 3.3 cm and marginal interstitial areas of nodular thickening with superimposed cystic lung change. Persistent small residual left-sided pleural effusion with pleural-based nodularity/thickening concerning for malignant ascites. Peripheral interstitial nodular areas of the periphery of the right upper lobe and right lower lobe measuring 2-3 mm of indeterminate etiology and differential includes pulmonary metastatic disease versus infectious/inflammatory etiology. -pleural fluid cytology revealed metastatic adenocarcinoma of the lung -Pleural fluid glucose 66, total protein 4.9 -Echo 2D revealed LVEF 60%, small pericardial effusion -blood culture negative, body fluid culture/pleural fluid culture no growth so far, MRSA screening negative -continue antibiotic ceftriaxone and azithromycin as prescribed -nebulization PRN -continue Lasix -recommendation reviewed and appreciated -as per IR repeat thoracentesis tomorrow # [place] likely due to VMN -Avoid dehydration and nephrotoxic drug Nephrology recommendation reviewed and appreciated # hypertension -monitor blood pressure # diabetes mellitus type 2 with hyperglycemia -hemoglobin A1c 7.5 -insulin sliding scale Goals of care, Code status full code ; discussed with >15 minutes PUD prophylaxis: Pantoprazole DVT prophylaxis: Lovenox Plan discussed with Dr. Chowdary , nursing staff, Total time spent on patient evaluation, chart review, assessment and plan, discussion discussion >35 minutes Plan discussed with: Patient, Other (RN) My Orders My Orders Orders - MIKAL ZAPATA Procedure Category Date Status Time Chest With Contrast CT 11/10/25 Logged 07:36 Ceftriaxone 1gm/50ml PHA 11/10/25 In Process (Rocephin) 09:00 Azithromycin Tablet PHA 11/10/25 In Process (Zithromax Tablet) 10:00 *Dr. [facility] CONS 11/10/25 Transmitted -[facility] 12:19 Visit Coding STANDARD RES Billing Provider: RANDOLPH CROCKETT MD Date of Service if different f: Nov 10, 2025 Common Visit Codes: [id number] INP/OBS CARE(HIGH) MIKAL ZAPATA Nov 10, 2025 12:53
[2025-11-10] MEDS: SODIUM BICARB 50mEq/50ml Vial 150 ML in D5W 5% 1,000 ML IV ONE (13:29)
--- NOTE | 2025-11-10 14:13 | DVHINCON2 ---
Date of service: Nov 10, [address] Chowdary Reason for Consultation [place] History of Present Illness 75 year old female hx dm2, htn, ckd . She does not know her ckd stage. She denies hx CHF. She presents with progressive SOb. Her hospital course was notable for large pleural effusion which required thoracentesis. Nephrology was called for elevated cr. Allergies: Coded Allergies: NO KNOWN ALLERGIES (Unverified , 11/06/25) Home Meds Reported Medications Lisinopril (Lisinopril) 20 Mg Tab, 1 TAB PO DAILY, #30 TAB 5 Refills 11/07/25 Glipizide (Glipizide Er) 10 Mg Tab, 1 TAB PO DAILY, #90 TAB 1 Refill 11/07/25 Insulin Glargine-Yfgn (Insulin Glargine) 100 Unit/Ml [place], 100 UNIT SC, ML 11/07/25 Metformin Hydrochloride (Metformin Hcl) 500 Mg Tab, 1 TAB PO BID, #60 TAB 3 Refills 11/07/25 Fluticasone-Salmeterol (Advair Diskus 250/50) 1 Puff Ih, 1 PUFF INH BID, #3 INHALER 3 Refills 11/07/25 Albuterol Sulfate (Albuterol Sulfate Hfa) 108 Mcg/Act Aer, 108 MCG IN, AER 11/07/25 Current Medications Current Medications Medications (Trade) Dose Ordered Sig/Indra Route PRN Reason Start Time Stop Time Status Last Admin Ceftriaxone Sodium 50 ml @ 100 mls/hr DAILY@09 IV 11/10/25 09:00 11/10/25 09:56 Azithromycin (Zithromax Tablet) 250 mg DAILY PO 11/10/25 10:00 11/10/25 09:56 Family History: Patient reports no known family medical history. Review of Systems SOB H&P Exam Vital Signs/I&O Vital Sign Date Time Temp Pulse Resp B/P (MAP) Pulse Ox O2 Delivery O2 Flow Rate FiO2 11/10/25 12:50 97.3 70 22 124/52 (76) 97 97.3 11/10/25 11:41 Nasal Cannula* 3 32 Intake and Output 11/09/25 11/10/25 19:00 07:00 Intake Total 1430 ml 188 ml Output Total 1250 ml 5 ml Balance 180 ml 183 ml Intake Oral 1300 ml 188 ml IV Total 130 ml Output Urine Total 1250 ml 5 ml # Bowel Movements 1 2 Physical Exam eldely female nad abd soft no pitting edema rrr Labs/Diagnostic Data Labs/Diagnostic Data Laboratory Tests Test 11/10/25 11:55 11/10/25 09:37 11/09/25 22:38 11/09/25 17:10 Range/Units POC Glucose 189 H 183 H 215 H 70-106 mg/dl White Blood Count 5.4 4.4-10.8 10^3/uL Red Blood Count 5.51 H 4.0-5.20 10^6/uL Hemoglobin 14.0 12.2-16.2 g/dL Hematocrit 43.6 36.0-46.0 % Mean Corpuscular Volume 79.1 L 80.0-100.0 fL Mean Corpuscular Hemoglobin 25.3 L 28.0-32.0 pg Mean Corpuscular Hemoglobin Concent 32.0 32.0-36.0 g/dL Red Cell Distribution Width 16.5 H 11.8-14.3 % Platelet Count 263 140-450 10^3/uL Mean Platelet Volume 7.7 6.9-10.8 fL Neutrophils (%) (Auto) 69.1 37.0-80.0 % Lymphocytes (%) (Auto) 20.2 10.0-50.0 % Monocytes (%) (Auto) 7.7 0.0-12.0 % Eosinophils (%) (Auto) 2.0 0.0-7.0 % Basophils (%) (Auto) 1.0 0.0-2.0 % Neutrophils # (Auto) 3.7 1.6-8.6 10 ^3/uL Lymphocytes # (Auto) 1.1 0.4-5.4 10 ^3/uL Monocytes # (Auto) 0.4 0-1.3 10 ^3/uL Eosinophils # (Auto) 0.1 0-0.8 10 ^3/uL Basophils # (Auto) 0.1 0-0.2 10 ^3/uL Nucleated Red Blood Cells 0.1 % Sodium Level 139 136-145 mmol/L Potassium Level 5.0 3.5-5.1 mmol/L Chloride Level 109 H 98-107 mmol/L Carbon Dioxide Level 26 20-31 mmol/L Anion Gap 4 L 5-15 Blood Urea Nitrogen 10 9-23 mg/dL Creatinine 1.32 H 0.550-1.02 mg/dL Glomerular Filtration Rate Calc 42 >90 mL/min BUN/Creatinine Ratio 7.6 L 10.0-20.0 Serum Glucose 177 H 74-106 mg/dL Calcium Level 9.4 8.7-10.4 mg/dL Magnesium Level 2.1 1.6-2.6 mg/dL Test 11/09/25 12:36 11/09/25 10:55 11/09/25 06:12 11/09/25 04:48 Range/Units Prothrombin Time 10.9 9.3-11.8 sec Prothrombin Time INR 1.03 0.9-1.15 Activated Partial Thromboplast Time 29.3 24.5-34.5 SEC POC Glucose 194 H 124 H 70-106 mg/dl White Blood Count 5.3 4.4-10.8 10^3/uL Red Blood Count 5.15 4.0-5.20 10^6/uL Hemoglobin 12.9 12.2-16.2 g/dL Hematocrit 40.4 36.0-46.0 % Mean Corpuscular Volume 78.4 L 80.0-100.0 fL Mean Corpuscular Hemoglobin 25.1 L 28.0-32.0 pg Mean Corpuscular Hemoglobin Concent 32.0 32.0-36.0 g/dL Red Cell Distribution Width 16.2 H 11.8-14.3 % Platelet Count 261 140-450 10^3/uL Mean Platelet Volume 8.2 6.9-10.8 fL Neutrophils (%) (Auto) 63.0 37.0-80.0 % Lymphocytes (%) (Auto) 24.6 10.0-50.0 % Monocytes (%) (Auto) 9.9 0.0-12.0 % Eosinophils (%) (Auto) 2.1 0.0-7.0 % Basophils (%) (Auto) 0.4 0.0-2.0 % Neutrophils # (Auto) 3.3 1.6-8.6 10 ^3/uL Lymphocytes # (Auto) 1.3 0.4-5.4 10 ^3/uL Monocytes # (Auto) 0.5 0-1.3 10 ^3/uL Eosinophils # (Auto) 0.1 0-0.8 10 ^3/uL Basophils # (Auto) 0 0-0.2 10 ^3/uL Nucleated Red Blood Cells 0.0 % Sodium Level 141 136-145 mmol/L Potassium Level 4.9 3.5-5.1 mmol/L Chloride Level 109 H 98-107 mmol/L Carbon Dioxide Level 25 20-31 mmol/L Anion Gap 7 5-15 Blood Urea Nitrogen 17 9-23 mg/dL Creatinine 1.62 H 0.550-1.02 mg/dL Glomerular Filtration Rate Calc 33 >90 mL/min BUN/Creatinine Ratio 10.5 10.0-20.0 Serum Glucose 121 H 74-106 mg/dL Calcium Level 9.2 8.7-10.4 mg/dL Magnesium Level 2.2 1.6-2.6 mg/dL Test 11/08/25 17:36 11/08/25 17:03 11/08/25 15:06 11/08/25 11:16 Range/Units POC Glucose 202 H 150 H 70-106 mg/dl Urine Creatinine 57.37 30.0-125.0 mg/dL Urine Protein/Creatinine Ratio 0.78 Urine Sodium 66 40-220 mmol/L Urine Total Protein 44.7 H 1-14 mg/dL Insulin Level 30.4 H 2.6-24.9 uIU/mL Test 11/08/25 06:35 11/08/25 05:10 11/08/25 04:56 11/07/25 21:10 Range/Units POC Glucose 154 H 47 *L 230 H 70-106 mg/dl White Blood Count 5.6 4.4-10.8 10^3/uL Red Blood Count 5.20 4.0-5.20 10^6/uL Hemoglobin 13.2 12.2-16.2 g/dL Hematocrit 41.3 36.0-46.0 % Mean Corpuscular Volume 79.4 L 80.0-100.0 fL Mean Corpuscular Hemoglobin 25.4 L 28.0-32.0 pg Mean Corpuscular Hemoglobin Concent 31.9 L 32.0-36.0 g/dL Red Cell Distribution Width 16.5 H 11.8-14.3 % Platelet Count 253 140-450 10^3/uL Mean Platelet Volume 7.9 6.9-10.8 fL Neutrophils (%) (Auto) 63.1 37.0-80.0 % Lymphocytes (%) (Auto) 24.0 10.0-50.0 % Monocytes (%) (Auto) 10.9 0.0-12.0 % Eosinophils (%) (Auto) 1.7 0.0-7.0 % Basophils (%) (Auto) 0.3 0.0-2.0 % Neutrophils # (Auto) 3.5 1.6-8.6 10 ^3/uL Lymphocytes # (Auto) 1.3 0.4-5.4 10 ^3/uL Monocytes # (Auto) 0.6 0-1.3 10 ^3/uL Eosinophils # (Auto) 0.1 0-0.8 10 ^3/uL Basophils # (Auto) 0 0-0.2 10 ^3/uL Nucleated Red Blood Cells 0.1 % Sodium Level 142 136-145 mmol/L Potassium Level 4.8 3.5-5.1 mmol/L Chloride Level 110 H 98-107 mmol/L Carbon Dioxide Level 26 20-31 mmol/L Anion Gap 6 5-15 Blood Urea Nitrogen 17 9-23 mg/dL Creatinine 1.51 H 0.550-1.02 mg/dL Glomerular Filtration Rate Calc 36 >90 mL/min BUN/Creatinine Ratio 11.3 10.0-20.0 Serum Glucose 37 *L 74-106 mg/dL Calcium Level 9.1 8.7-10.4 mg/dL Magnesium Level 2.4 1.6-2.6 mg/dL Test 11/07/25 18:00 11/07/25 17:24 11/07/25 13:17 11/07/25 13:14 Range/Units Influenza Type A Antigen Negative Negative Influenza Type B Antigen Negative Negative POC Glucose 116 H 70-106 mg/dl Lactate Dehydrogenase 228 120-246 U/L C-Reactive Protein High Sensitivity 1.68 H <1.0 mg/dL Vitamin D 25-Hydroxy 33.7 30.0-100 ng/mL Vitamin B12 Level 503 211-911 pg/mL Folic Acid 8.48 >5.38 ng/mL Test 11/07/25 12:51 11/07/25 10:25 11/07/25 08:18 11/07/25 06:00 Range/Units POC Glucose 97 100 70-106 mg/dl Body Fluid Source Pleural fluid Body Fluid pH 7.0 Body Fluid WBC (Manual) 1169 H 0-200 CUMM Body Fluid RBC (Manual) 1983 0-2000 CUMM Body Fluid Mononuclear Cells 98 % Body Fluid Polymorphonuclear Cells 2 0-25 % Body Fluid Glucose 66 . mg/dL Body Fluid Total Protein 4.9 . g/dL White Blood Count 6.6 4.4-10.8 10^3/uL Red Blood Count 5.52 H 4.0-5.20 10^6/uL Hemoglobin 14.1 12.2-16.2 g/dL Hematocrit 44.0 36.0-46.0 % Mean Corpuscular Volume 79.6 L 80.0-100.0 fL Mean Corpuscular Hemoglobin 25.5 L 28.0-32.0 pg Mean Corpuscular Hemoglobin Concent 32.0 32.0-36.0 g/dL Red Cell Distribution Width 16.3 H 11.8-14.3 % Platelet Count 255 140-450 10^3/uL Mean Platelet Volume 8.2 6.9-10.8 fL Neutrophils (%) (Auto) 76.5 37.0-80.0 % Lymphocytes (%) (Auto) 13.8 10.0-50.0 % Monocytes (%) (Auto) 8.6 0.0-12.0 % Eosinophils (%) (Auto) 0.5 0.0-7.0 % Basophils (%) (Auto) 0.6 0.0-2.0 % Neutrophils # (Auto) 5.0 1.6-8.6 10 ^3/uL Lymphocytes # (Auto) 0.9 0.4-5.4 10 ^3/uL Monocytes # (Auto) 0.6 0-1.3 10 ^3/uL Eosinophils # (Auto) 0 0-0.8 10 ^3/uL Basophils # (Auto) 0 0-0.2 10 ^3/uL Nucleated Red Blood Cells 0.1 % Erythrocyte Sedimentation Rate 8 0-20 mm/hr Sodium Level 142 136-145 mmol/L Potassium Level 4.5 3.5-5.1 mmol/L Chloride Level 112 H 98-107 mmol/L Carbon Dioxide Level 23 20-31 mmol/L Anion Gap 7 5-15 Blood Urea Nitrogen 20 9-23 mg/dL Creatinine 1.68 H 0.550-1.02 mg/dL Glomerular Filtration Rate Calc 31 >90 mL/min BUN/Creatinine Ratio 11.9 10.0-20.0 Serum Glucose 35 *L 74-106 mg/dL Hemoglobin A1c 7.5 H <5.7 % A1C Calcium Level 9.2 8.7-10.4 mg/dL Total Bilirubin 0.3 0.2-1.0 mg/dL Aspartate Amino Transferase (AST) 28 13-40 U/L Alanine Aminotransferase (ALT) 37 7-40 U/L Alkaline Phosphatase 78 46-116 U/L Total Protein 6.2 5.7-8.2 g/dL Albumin 3.3 3.2-4.8 g/dL Thyroid Stimulating Hormone (TSH) 1.11 0.55-4.78 uIU/mL Test 11/07/25 01:11 11/06/25 22:05 11/06/25 20:38 11/06/25 19:07 Range/Units Urine Color Yellow Yellow Urine Clarity Turbid H Clear Urine pH 5.5 5.0-9.0 Urine Specific [place] 1.024 1.001-1.035 Urine Protein 2+ H Negative Urine Ketones Negative Negative Urine Blood Negative Negative /uL Urine Nitrite Negative Negative Urine Bilirubin Negative Negative Urine Urobilinogen 2 H Negative mg/dL Urine Leukocyte Esterase Negative Negative /uL Urine RBC 2 0 - 4 /hpf Urine Microscopic WBC 4 0-5 /HPF Urine Squamous Epithelial Cells Few <5 /hpf Urine Bacteria Few H None Seen /hpf Urine Hyaline Casts Many 0 - 2 /lpf Urine Mucus Few None Seen Urine Glucose Trace Normal mg/dL Urine Opiates Screen Neg NEGATIVE Urine Fentanyl Screen Neg NEGATIVE Urine Barbiturates Screen Neg NEGATIVE Urine Phencyclidine Screen Neg NEGATIVE Urine Amphetamines Screen Neg NEGATIVE Urine Benzodiazepines Screen Neg NEGATIVE Urine Cocaine Screen Neg NEGATIVE Urine Cannabinoids Screen Neg NEGATIVE POC Glucose 140 H 70-106 mg/dl Blood Gas Specimen Type Arterial Blood Gas Sample Site Right radial Blood Gas Patient Temperature 37.0 Arterial Blood Date Drawn [id number] Arterial Blood pH 7.332 L 7.350-7.450 Arterial Blood Partial Pressure CO2 40.3 32.0-45.0 mmHg Arterial Blood Partial Pressure O2 221.5 H 83.0-108.0 mmHg Arterial Blood HCO3 20.9 L 21.0-28.0 mmol/L Arterial Blood Oxygen Saturation 99.5 H 94.0-98.0 % Arterial Blood Base Excess -4.7 L -2.0-3.0 mmol/L Arterial Blood Oxyhemoglobin 97.2 94.0-98.0 % Arterial Blood Carboxyhemoglobin 1.8 H 0.5-1.5 % Arterial Blood Methemoglobin 0.5 0.0-1.5 % Arterial Blood Deoxyhemoglobin 0.5 0.0-5.0 % Pancho Test Modified Blood Gas Total Hemoglobin 15.00 12.0-16.0 g/dL Blood Gas Set Respiration Rate 12.0 Blood Gas Modality Mask - bipap FiO2 % 100.0 Blood Gas EPAP 5 Blood Gas IPAP 12 Troponin I High Sensitivity 20 </=34 ng/L Test 11/06/25 18:07 Range/Units White Blood Count 7.4 4.4-10.8 10^3/uL Red Blood Count 5.97 H 4.0-5.20 10^6/uL Hemoglobin 15.3 12.2-16.2 g/dL Hematocrit 47.8 H 36.0-46.0 % Mean Corpuscular Volume 80.0 80.0-100.0 fL Mean Corpuscular Hemoglobin 25.6 L 28.0-32.0 pg Mean Corpuscular Hemoglobin Concent 31.9 L 32.0-36.0 g/dL Red Cell Distribution Width 16.5 H 11.8-14.3 % Platelet Count 285 140-450 10^3/uL Mean Platelet Volume 7.8 6.9-10.8 fL Neutrophils (%) (Auto) 61.4 37.0-80.0 % Lymphocytes (%) (Auto) 28.9 10.0-50.0 % Monocytes (%) (Auto) 8.0 0.0-12.0 % Eosinophils (%) (Auto) 0.6 0.0-7.0 % Basophils (%) (Auto) 1.1 0.0-2.0 % Neutrophils # (Auto) 4.5 1.6-8.6 10 ^3/uL Lymphocytes # (Auto) 2.1 0.4-5.4 10 ^3/uL Monocytes # (Auto) 0.6 0-1.3 10 ^3/uL Eosinophils # (Auto) 0 0-0.8 10 ^3/uL Basophils # (Auto) 0.1 0-0.2 10 ^3/uL Nucleated Red Blood Cells 0.1 % D-Dimer, Quantitative 4.64 H 0.0-0.49 mg/L FEU Sodium Level 138 136-145 mmol/L Potassium Level 5.1 3.5-5.1 mmol/L Chloride Level 106 98-107 mmol/L Carbon Dioxide Level 23 20-31 mmol/L Anion Gap 9 5-15 Blood Urea Nitrogen 20 9-23 mg/dL Creatinine 1.75 H 0.550-1.02 mg/dL Glomerular Filtration Rate Calc 30 >90 mL/min BUN/Creatinine Ratio 11.4 10.0-20.0 Serum Glucose 214 H 74-106 mg/dL Lactic Acid Level 1.4 0.4-2.0 mmol/L Calcium Level 9.6 8.7-10.4 mg/dL Troponin I High Sensitivity 20 </=34 ng/L B-Type Natriuretic Peptide 37.47 0-100 pg/mL Microbiology Date/Time Source Procedure Growth Status 11/07/25 18:00 Nose MRSA Screen - Final Complete Assessment Acute kidney injury hemodynamic ckd unspecified COPD pleural effusion hyperkalemia Dm2 US kidney bladder patient is planned for CTA today. Rec pre and post hydration fluid with lasix to promote contrast excretion and prevent contrast induced nephropathy lasix echo- LVH EF 60% strict I/O pulm for copd management Plan discussed with: Patient SILVINO FARIAS MD Nov 10, 2025 14:13
--- NOTE | 2025-11-10 15:11 | DVH ---
RENAL ULTRASOUND History: saray COMPARISON: None TECHNIQUE: Multiple real-time sonographic images of the kidney and bladder were obtained in conjunction with Doppler imaging. FINDINGS: Echogenic appearance of the bilateral kidneys. The right kidney measures 9.5 cm and demonstrates no evidence of hydronephrosis, perinephric fluid collection, or shadowing stone. The left kidney measures 9.9 cm and demonstrates no evidence of hydronephrosis, perinephric fluid collection, or shadowing stone. Urinary bladder: Prevoid urinary bladder volume is 103 mL. IMPRESSION: Echogenic appearance of the bilateral kidneys, which can be seen with medical renal disease.
[2025-11-10] MEDS: FUROSEMIDE 40 MG/4 ML VIAL IV ONE (15:43)
--- NOTE | 2025-11-10 17:28 | DVH ---
EXAM: CT CHEST WITH CONTRAST HISTORY: LUNG CA; EFFUSION/PNEUMOTHORAX TECHNIQUE: CT angiogram was performed. CT scans at this facility use dose modulation, iterative reconstruction, and/or weight based dosing when appropriate to reduce radiation dose to as low as reasonably achievable. Coronal and sagittal reformations and maximum intensity projection images were created from the transaxial source data by the optometric technologist and workstation, as well as 3-D volume rendered images with MIPs. COMPARISON: US CHEST ULTRASOUND on DOS: 11/09/25 FINDINGS: [LOWER NECK]: Unremarkable [LYMPH NODES/MEDIASTINUM]: No abnormal lymph nodes by CT size criteria [CARDIOVASCULAR]: Normal cardiac size. No pericardial effusion. No aneurysmal dilatation of the great vessels. No significant coronary artery calcifications. [PULMONARY ARTERIES]: No pulmonary arterial filling defect. Normal caliber of the main pulmonary artery. No evidence of elevated right heart pressures. [UPPER ABDOMEN]: Gallbladder is hydropic measuring up to 9.1 cm. [MUSCULOSKELETAL]: No acute fracture or aggressive focal osseous lesion. Multilevel degenerative change of the visualized spine. [CHEST WALL]: Unremarkable. [LUNG PARENCHYMA/PLEURAL SPACE]: Status post presumed left-sided thoracentesis and presumed trapped lung creating appearance of pneumothorax. Persistent complete collapse versus masslike appearance of the left upper lobe which is failing to re-expand. Mild re-expansion of the left lower lobe however with left infrahilar suspected mass measuring 4 x 3.3 cm and marginal interstitial areas of nodular thickening with superimposed cystic lung change. Persistent small residual left-sided pleural effusion with pleural-based nodularity/thickening concerning for malignant ascites. Peripheral interstitial nodular areas of the periphery of the right upper lobe and right lower lobe measuring 2-3 mm of indeterminate etiology and differential includes pulmonary metastatic disease versus infectious/inflammatory etiology. IMPRESSION: 1. Status post presumed left-sided thoracentesis and presumed trapped lung creating appearance of pneumothorax. 2. Persistent complete collapse versus masslike appearance of the left upper lobe which is failing to re-expand. 3. Mild re-expansion of the left lower lobe however with left infrahilar suspected mass measuring 4 x 3.3 cm and marginal interstitial areas of nodular thickening with superimposed cystic lung change. 4. Persistent small residual left-sided pleural effusion with pleural-based nodularity/thickening concerning for malignant ascites. 5. Peripheral interstitial nodular areas of the periphery of the right upper lobe and right lower lobe measuring 2-3 mm of indeterminate etiology and differential includes pulmonary metastatic disease versus infectious/inflammatory etiology.
--- NOTE | 2025-11-10 22:54 | DVHPN2 ---
Subjective DOS: 11/10/2025 Patient seen and examined at bedside. Remains on supplemental oxygen Overnight events reviewed. Changes from previous H/P or p: No Changes Objective Vitals Vital Signs Date Time Temp Pulse Resp B/P (MAP) Pulse Ox O2 Delivery O2 Flow Rate FiO2 11/10/25 21:00 97.9 78 18 126/73 (90) 96 97.9 11/10/25 18:57 Nasal Cannula* 3 32 Intake/Output Intake and Output 11/10/25 07:00 Intake Total 1618 ml Output Total 1255 ml Balance 363 ml Intake Oral 1488 ml IV Total 130 ml Output Urine Total 1255 ml # Bowel Movements 3 Exam Gen.: Patient lying in bed in no apparent distress. On supplemental oxygen. Head: Normocephalic, atraumatic. Eyes: EOMI/PERRLA. Ears: Normal hearing. Normal anatomy. Neck/trachea: Trachea midline, supple. Nose: Normal external anatomy. Mouth: Moist mucous membranes. Chest: Decreased air entry bilaterally. No wheezing or rhonchi. Cardiovascular: Positive S1, positive S2. Regular rate and rhythm. Abdomen: Positive bowel sounds in all 4 quadrants. Soft, non-tender, non- distended. : Deferred. Rectal: Deferred. Skin: Warm, dry. Intact. Extremities: 2+ radial pulses bilaterally. No lower extremity edema. Neuro: Awake, alert, oriented x3. No gross motor or sensory deficits. Cranial nerves II through XII intact. Gait not assessed. Medications Current Medications Medications Dose Ordered Sig/Indra Route Start Time Stop Time Status Last Admin Dose Admin Nitroglycerin 0.4 mg Q5MINP PRN SL 11/06/25 20:15 Morphine Sulfate 2 mg Q30M PRN IV 11/06/25 20:15 Dextrose 50 ml UD PRN IV 11/06/25 20:30 Ondansetron HCl 4 mg Q4HP PRN IV 11/06/25 20:30 Enoxaparin Sodium 30 mg DAILY SC 11/07/25 10:00 11/10/25 09:56 30 MG Acetaminophen 650 mg Q6HP PRN PO 11/06/25 20:30 11/09/25 22:35 650 MG Diagnostic Test (Pha) 1 strip ACHS 11/07/25 17:00 11/10/25 21:55 1 STRIP Albuterol 2.5 mg Q6HWA NEB 11/07/25 18:00 11/10/25 18:57 2.5 MG Ipratropium [place] 0.5 mg Q6HWA NEB 11/07/25 18:00 11/10/25 18:57 0.5 MG Nicotine 1 patch DAILY TD 11/08/25 10:00 11/10/25 09:57 1 PATCH Ceftriaxone Sodium 50 ml @ 100 mls/hr DAILY@09 IV 11/10/25 09:00 11/10/25 09:56 100 MLS/HR Azithromycin 250 mg DAILY PO 11/10/25 10:00 11/10/25 09:56 250 MG Laboratory Results Laboratory Tests 11/10/25 09:37 Chemistry Test 11/10/25 09:37 Calcium Level 9.4 mg/dL (8.7-10.4) Magnesium Level 2.1 mg/dL (1.6-2.6) Urinalysis Test 11/07/25 01:11 11/08/25 17:03 Urine Color Yellow (Yellow) Urine Clarity Turbid (Clear) H Urine pH 5.5 (5.0-9.0) Urine Specific [place] 1.024 (1.001-1.035) Urine Protein 2+ (Negative) H Urine Ketones Negative (Negative) Urine Blood Negative /uL (Negative) Urine Nitrite Negative (Negative) Urine Bilirubin Negative (Negative) Urine Urobilinogen 2 mg/dL (Negative) H Urine Leukocyte Esterase Negative /uL (Negative) Urine RBC 2 /hpf (0 - 4) Urine Microscopic WBC 4 /HPF (0-5) Urine Squamous Epithelial Cells Few /hpf (<5) Urine Bacteria Few /hpf (None Seen) H Urine Hyaline Casts Many /lpf (0 - 2) Urine Mucus Few (None Seen) Urine Glucose Trace mg/dL (Normal) Urine Creatinine 57.37 mg/dL (30.0-125.0) Urine Protein/Creatinine Ratio 0.78 Urine Sodium 66 mmol/L (40-220) Urine Total Protein 44.7 mg/dL (1-14) H Microbiology Microbiology Date/Time Source Procedure Growth Status 11/07/25 18:00 Nose MRSA Screen - Final Complete 11/07/25 10:25 Pleural Fluid Gram Stain - Final Resulted 11/07/25 10:25 Pleural Fluid Body Fluid Culture - Preliminary No growth Resulted 11/06/25 18:15 Blood Blood Culture - Preliminary NO GROWTH AFTER 72 HOURS OF INCUBATION. Resulted Assessment/Plan Assessment/Plan Impression: Acute on chronic hypoxic respiratory failure Dependence on supplemental oxygen Pleural effusion, large, left. Atelectasis Chronic obstructive pulmonary disease Acute kidney injury Obesity Events: Remains on supplemental oxygen, 3 LPM NC Taper O2 as tolerated S/p left thoracentesis yesterday - drained 2.3 liters. 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 Monitor hemoglobin Transfuse if less than 7.0 g/dL. Patient with recurrent asymptomatic hypoglycemic episode, discontinued insulin. Continue to monitor blood sugars Pt is receiving bicarbonate and Lasix in preparation for IV contrast, per Nephrology recommendations. Monitor renal function. Monitor electrolytes. Supplement as necessary. Monitor ins and outs S/p thoracentesis, 1.1 L fluid removed by IR on 11/07/25. Cytology shows pleural fluid glucose 66, total protein 4.9, possible exudative pleural effusion Echo 2D revealed LVEF 60%, small pericardial effusion. Cardiology recs appreciated Nicotine patch Labs and imaging reviewed. Rest of plan as noted below. Plan: Supplemental oxygen Titrate to keep O2 sats above 92%. CXR (11/07) demonstrates complete opacification of the left hemithorax. No pneumothorax. Mild infiltrate, right lung base S/p left thoracentesis on 11/07/25 with removal of 1.1 liters of fluid. Chest CT (11/06) reveals: Large left pleural effusion occupying the entire left hemithorax with complete left lung collapse and concomitant shift of the mediastinal structures to the right. Subsolid perifissural lateral right lower lobe pulmonary nodule. V/Q scan shows low probability for PE. Bilateral lower extremity venous ultrasound negative for DVT. Continue bronchodilators. Continue antibiotics Incentive spirometry Blood pressure control. Accu-Cheks, ISS PRN. Diurese with Lasix as tolerated Monitor renal function. Monitor electrolytes. Supplement as necessary. Monitor ins and outs. Recommend diet and lifestyle modifications for weight reduction Obesity complicates all care DVT prophylaxis. Prognosis: Poor given patient's multiple co-morbidities. Rest of plan per hospitalist and other consultants. Thank you, Dr. Rashid, for allowing me to participate in this patient's care. Further recommendations will depend on the patient's clinical course. Please do not hesitate to contact me if you have any questions or concerns. This medical document was created using an electronic medical record system with [employer] dictation system. Although these documentations are being carefully reviewed, there may still be some phonetic and typographical changes. The errors are purely typographical, due to imperfection on the software program, and do not reflect any compromise in the patient's medical care. Plan discussed with: Patient, Other (RN Hermes) Visit Coding Pulmonary Billing Provider: JORGITO ACEVES MD Date of Service if different f: Nov 10, 2025 Common Visit Codes: 19605-[id number] INP/OBS CARE(HIGH) JORGITO ACEVES MD Nov 10, 2025 22:54
[2025-11-11] VITALS (13 sets, daily range): BP systolic 111–145; BP diastolic 54–76; PULSE 62–77; RESP 16–19; TEMP 97.5–98.1; O2SAT 90–99
[2025-11-11 07:09] LABS: Hemoglobin 13.1 g/dL (12.2-16.2); Nucleated Red Blood Cells % 0.0 %
[2025-11-11 07:12] LABS: Hematocrit 40.7 % (36.0-46.0); Mean Corpuscular Hemoglobin 25.3 pg (28.0-32.0); Mean Corpuscular Volume 78.3 fL (80.0-100.0)
[2025-11-11] MEDS ORDERED: DEXTROSE (50%) 50ML SYRG IV PRN (07:15)
[2025-11-11 07:17] LABS: Chloride 101 mmol/L (98-107); Potassium 4.1 mmol/L (3.5-5.1); Sodium 138 mmol/L (136-145)
[2025-11-11 07:18] LABS: Anion Gap 4 (5-15); Calcium 9.3 mg/dL (8.7-10.4)
[2025-11-11 07:19] LABS: Carbon Dioxide 33 mmol/L (20-31)
[2025-11-11 07:23] LABS: BUN/Creatinine Ratio 8.2 (10.0-20.0); Blood Urea Nitrogen 11 mg/dL (9-23)
[2025-11-11 07:24] LABS: Glucose 201 mg/dL (74-106)
[2025-11-11] MEDS ORDERED: MORPHINE SULFATE 4 MG/ML SYR/VIAL IV PRN (09:15)
[2025-11-11] MEDS: LIDOCAINE 2%HCL (LOCAL ANESTH.) INJ 10ml MDV ONE (10:35)
[2025-11-11] MEDS: IOHEXOL 300 MG/ML 100ML BOTTLE IJ ONE (10:35)
[2025-11-11] MEDS: ACCU-CHEK COMFORT CURVE STRIP VI SCH (11:18)
[2025-11-11] MEDS: InsuLIN REG 1unit/0.01ml Soln (100units/ml) SC SCH (11:42)
--- NOTE | 2025-11-11 14:04 | DVHPN2 ---
Progress Note Date Seen: Nov 11, 2025 Medical Necessity Reason Pt with a Central, PICC or Fol: No Subjective Changes from previous H/P or p: No Changes Objective vital signs Vital Sign Date Time Temp Pulse Resp B/P (MAP) Pulse Ox O2 Delivery O2 Flow Rate FiO2 11/11/25 12:37 97.7 71 17 114/60 (78) 92 97.7 11/11/25 12:23 Nasal Cannula* 2 28 Total Intake and Output 11/10/25 11/10/25 11/11/25 15:00 23:00 07:00 Intake Total 50 ml 480 ml 275 ml Balance 50 ml 480 ml 275 ml medications Current Medications Medications Dose Ordered Sig/Indra Route Start Time Stop Time Status Last Admin Dose Admin Nitroglycerin 0.4 mg Q5MINP PRN SL 11/06/25 20:15 Ondansetron HCl 4 mg Q4HP PRN IV 11/06/25 20:30 Enoxaparin Sodium 30 mg DAILY SC 11/07/25 10:00 11/11/25 10:14 30 MG Acetaminophen 650 mg Q6HP PRN PO 11/06/25 20:30 11/09/25 22:35 650 MG Albuterol 2.5 mg Q6HWA NEB 11/07/25 18:00 11/11/25 12:17 2.5 MG Ipratropium [place] 0.5 mg Q6HWA NEB 11/07/25 18:00 11/11/25 12:17 0.5 MG Nicotine 1 patch DAILY TD 11/08/25 10:00 11/11/25 10:17 1 PATCH Ceftriaxone Sodium 50 ml @ 100 mls/hr DAILY@09 IV 11/10/25 09:00 11/11/25 10:17 100 MLS/HR Azithromycin 250 mg DAILY PO 11/10/25 10:00 11/11/25 10:17 250 MG Diagnostic Test (Pha) 1 strip ACHS 11/11/25 11:30 11/11/25 11:18 1 STRIP Insulin Human Regular ACHS SC 11/11/25 11:30 11/11/25 11:42 4 UNITS Dextrose 50 ml UD PRN IV 11/11/25 07:15 Morphine Sulfate 2 mg Q30M PRN IV 11/11/25 09:15 Examination: GENERAL:Abnormal, LUNGS:Abnormal, CVS:Normal laboratory and microbiology Laboratory Tests 11/11/25 06:37 Test 11/11/25 06:37 Range/Units Serum Glucose 201 H 74-106 mg/dL Microbiology Date/Time Source Procedure Growth Status 11/07/25 18:00 Nose MRSA Screen - Final Complete 11/07/25 10:25 Pleural Fluid Gram Stain - Final Resulted 11/07/25 10:25 Pleural Fluid Body Fluid Culture - Preliminary No growth Resulted 11/06/25 18:15 Blood Blood Culture - Preliminary NO GROWTH AFTER 72 HOURS OF INCUBATION. Resulted Problem List/Assessment/Plan Problem List/Assessment/Plan Acute kidney injury hemodynamic ckd unspecified COPD pleural effusion Adenocarcinoma of Lung, trapped lung hyperkalemia Dm2 lasix US kidney bladder unremarkable new lung findings noted by Pulm concerning for lung Ca planned for oncology eval echo- LVH EF 60% strict I/O pulm Plan discussed with: Patient My Orders My Orders Orders - SILVINO FARIAS MD Procedure Category Date Status Time Kidney US 11/10/25 Resulted 14:03 SILVINO FARIAS MD Nov 11, 2025 14:04
--- NOTE | 2025-11-11 15:16 | DVHPNRES ---
Progress Note Date Seen: Nov 11, 2025 Resident Creating Document: MIKAL ZAPATA RESIDENT Medical Necessity Reason Pt with a Central, PICC or Fol: No Subjective Review of Systems Patient is 75 years old female with a past medical history of hypertension, diabetes mellitus type 2, COPD not on home oxygen came with a complaint of shortness of breaths. As per patient she has been having shortness of breaths for last 3 weeks, increased with the exertion. Patient also endorsed cough with whitish mucus. Patient denied any fever, palpitation, leg swelling/weight loss or anorexia. CXR revealed-Opacified left kamaljit thorax may represent a large pleural effusion. CT chest- Large left pleural effusion occupying the entire left hemithorax with complete left lung collapse and concomitant shift of the mediastinal structures to the right. Subsolid perifissural lateral right lower lobe pulmonary nodule. V/Q scan low probability for PE. Doppler study of the lower extremity nonsignificant per DVT. PMH-hypertension, diabetes mellitus type 2, COPD PSH- denies Allergy- and kidney Personal History/ Social History- chronic smoker for almost 50 years, denies alcoholism or drug abuse, lives with daughter and granddaughter. ROS Cardiovascular- shortness of breaths Respiratory cough, shortness of breath Gastrointestinal- denies any rectal bleeding, nausea or vomiting Musculoskeletal-denies acute joint swelling or tenderness or redness Neurological- denies acute dysarthria, dysphagia, change in vision Psychiatry- denies depression or SI or HI Skin- denies acute rash or purpura Patient is seen today at bedside Labs and chart reviewed Patient was saturating well in room air Ordered IR consult for possible lung biopsy for further evaluation and care Patient was seen by Nephrology, recommendation reviewed and appreciated Patient was seen by pulmonology yesterday, recommendation reviewed and appreciated Spoke to patient's granddaughter Rosalva [phone], discussed patient's current medical condition, treatment plan and answered her questions Objective vital signs Vital Sign Date Time Temp Pulse Resp B/P (MAP) Pulse Ox O2 Delivery O2 Flow Rate FiO2 11/11/25 12:37 97.7 71 17 114/60 (78) 92 97.7 11/11/25 12:23 Nasal Cannula* 2 28 Total Intake and Output 11/10/25 11/10/25 11/11/25 15:00 23:00 07:00 Intake Total 50 ml 480 ml 275 ml Balance 50 ml 480 ml 275 ml medications Current Medications Medications Dose Ordered Sig/Indra Route Start Time Stop Time Status Last Admin Dose Admin Nitroglycerin 0.4 mg Q5MINP PRN SL 11/06/25 20:15 Ondansetron HCl 4 mg Q4HP PRN IV 11/06/25 20:30 Enoxaparin Sodium 30 mg DAILY SC 11/07/25 10:00 11/11/25 10:14 30 MG Acetaminophen 650 mg Q6HP PRN PO 11/06/25 20:30 11/09/25 22:35 650 MG Albuterol 2.5 mg Q6HWA [facility] [place] 11/07/25 18:00 11/11/25 12:17 2.5 MG Ipratropium [place] 0.5 mg Q6HWA [facility] [place] 11/07/25 18:00 11/11/25 12:17 0.5 MG Nicotine 1 patch DAILY TD 11/08/25 10:00 11/11/25 10:17 1 PATCH Ceftriaxone Sodium 50 ml @ 100 mls/hr DAILY@09 IV 11/10/25 09:00 11/11/25 10:17 100 MLS/HR Azithromycin 250 mg DAILY PO 11/10/25 10:00 11/11/25 10:17 250 MG Diagnostic Test (Pha) 1 strip ACHS 11/11/25 11:30 11/11/25 11:18 1 STRIP Insulin Human Regular ACHS SC 11/11/25 11:30 11/11/25 11:42 4 UNITS Dextrose 50 ml UD PRN IV 11/11/25 07:15 Morphine Sulfate 2 mg Q30M PRN IV 11/11/25 09:15 Furosemide 20 mg DAILY PO 11/12/25 10:00 Examination General examination- awake, alert HEENT- PEERLA, no acute nasal discharge Cardiovascular- S1-S2 audible, rate and rhythm regular, no murmur Respiratory- diminished breath sound of the left side of the lung Gastrointestinal-nontender, bowel sound+. Nondistended Musculoskeletal-no acute joint swelling or tenderness or redness Lower extremity- no leg edema Neurological- cranial nerves intact, no acute dysarthria or dysphagia Psychiatry- denies depression or SI or HI Skin- no acute rash or purpura laboratory and microbiology Laboratory Tests 11/11/25 06:37 Test 11/11/25 06:37 Range/Units Serum Glucose 201 H 74-106 mg/dL Microbiology Date/Time Source Procedure Growth Status 11/07/25 18:00 Nose MRSA Screen - Final Complete 11/07/25 10:25 Pleural Fluid Gram Stain - Final Resulted 11/07/25 10:25 Pleural Fluid Body Fluid Culture - Preliminary No growth Resulted 11/06/25 18:15 Blood Blood Culture - Preliminary NO GROWTH AFTER 72 HOURS OF INCUBATION. 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 - CT chest- Large left pleural effusion occupying the entire left hemithorax with complete left lung collapse and concomitant shift of the mediastinal structures to the right. Subsolid perifissural lateral right lower lobe pulmonary nodule. - V/Q scan low probability for PE. - Doppler study of the lower extremity nonsignificant per DVT. On 11/09/2025 Patient had thoracentesis today by Dr. Worthy, had 2.3 L of fluid drained, sent for CEA - reviewed CT chest with contrast -S/P presumed left-sided thoracentesis and presumed trapped lung creating appearance of pneumothorax.Persistent complete collapse versus masslike appearance of the left upper lobe which is failing to re-expand. Mild re-expansion of the left lower lobe however with left infrahilar suspected mass measuring 4 x 3.3 cm and marginal interstitial areas of nodular thickening with superimposed cystic lung change. Persistent small residual left-sided pleural effusion with pleural-based nodularity/thickening concerning for malignant ascites. Peripheral interstitial nodular areas of the periphery of the right upper lobe and right lower lobe measuring 2-3 mm of indeterminate etiology and differential includes pulmonary metastatic disease versus infectious/inflammatory etiology. -pleural fluid cytology revealed metastatic adenocarcinoma of the lung -Pleural fluid glucose 66, total protein 4.9 -Echo 2D revealed LVEF 60%, small pericardial effusion -blood culture negative, body fluid culture/pleural fluid culture no growth so far, MRSA screening negative -continue antibiotic ceftriaxone and azithromycin as prescribed -nebulization PRN -recommendation reviewed and appreciated -ordered IR consult for lung biopsy # [place] likely due to VMN -Avoid dehydration and nephrotoxic drug Nephrology recommendation reviewed and appreciated # hypertension -monitor blood pressure # diabetes mellitus type 2 with hyperglycemia -hemoglobin A1c 7.5 -insulin sliding scale Goals of care, Code status full code ; discussed with >15 minutes PUD prophylaxis: Pantoprazole DVT prophylaxis: Lovenox Plan discussed with Dr. Chowdary , nursing staff, Total time spent on patient evaluation, chart review, assessment and plan, discussion discussion >35 minutes Plan discussed with: Patient, Other (RN, GRANDDAUGHTER) My Orders My Orders Orders - MIKAL ZAPATA Procedure Category Date Status Time Glucose Blood PHA 11/11/25 In Process (Accu-Chek Comfort 11:30 Insulin R (Human) PHA 11/11/25 In Process (Insulin R) 11:30 Dextrose 50% Syringe PHA 11/11/25 In Process 07:15 * Radiologist Consult CONS 11/11/25 Transmitted 11:29 Visit Coding STANDARD RES Billing Provider: RANDOLPH CROCKETT MD Date of Service if different f: Nov 11, 2025 Common Visit Codes: [id number] INP/OBS CARE(HIGH) MIKAL ZAPATA RESIDENT Nov 11, 2025 15:16
[2025-11-12] VITALS (14 sets, daily range): BP systolic 105–146; BP diastolic 49–83; PULSE 60–82; RESP 16–18; TEMP 97.2–98.5; O2SAT 92–100
[2025-11-12 06:40] LABS: Mean Corpuscular Volume 78.1 fL (80.0-100.0); Nucleated Red Blood Cells % 0.1 %
[2025-11-12 06:43] LABS: Hematocrit 42.8 % (36.0-46.0); Hemoglobin 13.8 g/dL (12.2-16.2); Mean Corpuscular Hemoglobin 25.2 pg (28.0-32.0)
[2025-11-12 06:52] LABS: Anion Gap 8 (5-15); Carbon Dioxide 30 mmol/L (20-31); Chloride 103 mmol/L (98-107); Potassium 4.1 mmol/L (3.5-5.1); Sodium 141 mmol/L (136-145)
[2025-11-12 06:54] LABS: Calcium 9.7 mg/dL (8.7-10.4)
[2025-11-12 06:58] LABS: BUN/Creatinine Ratio 9.3 (10.0-20.0); Blood Urea Nitrogen 11 mg/dL (9-23); Glucose 89 mg/dL (74-106)
--- NOTE | 2025-11-12 08:08 | DVHPN2 ---
Subjective DOS: 11/11/2025 Patient seen and examined at bedside. Remains on supplemental oxygen Overnight events reviewed. Changes from previous H/P or p: No Changes Objective Vitals Vital Signs Date Time Temp Pulse Resp B/P (MAP) Pulse Ox O2 Delivery O2 Flow Rate FiO2 11/12/25 05:37 60 16 100 11/12/25 05:16 Room Air* 0 21 11/12/25 05:00 98.1 133/61 (85) 98.1 Intake/Output Intake and Output 11/12/25 07:00 Intake Total 1150 ml Balance 1150 ml Intake Oral 1100 ml IV Total 50 ml # Voids 5 # Bowel Movements 2 Exam Gen.: Patient lying in bed in no apparent distress. On supplemental oxygen. Head: Normocephalic, atraumatic. Eyes: EOMI/PERRLA. Ears: Normal hearing. Normal anatomy. Neck/trachea: Trachea midline, supple. Nose: Normal external anatomy. Mouth: Moist mucous membranes. Chest: Decreased air entry bilaterally. No wheezing or rhonchi. Cardiovascular: Positive S1, positive S2. Regular rate and rhythm. Abdomen: Positive bowel sounds in all 4 quadrants. Soft, non-tender, non- distended. : Deferred. Rectal: Deferred. Skin: Warm, dry. Intact. Extremities: 2+ radial pulses bilaterally. No lower extremity edema. Neuro: Awake, alert, oriented x3. No gross motor or sensory deficits. Cranial nerves II through XII intact. Gait not assessed. Medications Current Medications Medications Dose Ordered Sig/Indra Route Start Time Stop Time Status Last Admin Dose Admin Nitroglycerin 0.4 mg Q5MINP PRN SL 11/06/25 20:15 Ondansetron HCl 4 mg Q4HP PRN IV 11/06/25 20:30 Enoxaparin Sodium 30 mg DAILY SC 11/07/25 10:00 11/11/25 10:14 30 MG Acetaminophen 650 mg Q6HP PRN PO 11/06/25 20:30 11/12/25 02:55 650 MG Albuterol 2.5 mg Q6HWA NEB 11/07/25 18:00 11/12/25 05:16 2.5 MG Ipratropium [place] 0.5 mg Q6HWA NEB 11/07/25 18:00 11/12/25 05:16 0.5 MG Nicotine 1 patch DAILY TD 11/08/25 10:00 11/11/25 10:17 1 PATCH Ceftriaxone Sodium 50 ml @ 100 mls/hr DAILY@09 IV 11/10/25 09:00 11/11/25 10:17 100 MLS/HR Azithromycin 250 mg DAILY PO 11/10/25 10:00 11/11/25 10:17 250 MG Diagnostic Test (Pha) 1 strip ACHS 11/11/25 11:30 11/12/25 06:18 1 STRIP Insulin Human Regular ACHS SC 11/11/25 11:30 11/11/25 22:12 6 UNITS Dextrose 50 ml UD PRN IV 11/11/25 07:15 Morphine Sulfate 2 mg Q30M PRN IV 11/11/25 09:15 Furosemide 20 mg DAILY PO 11/12/25 10:00 Laboratory Results Laboratory Tests 11/12/25 05:47 Chemistry Test 11/12/25 05:47 Calcium Level 9.7 mg/dL (8.7-10.4) Magnesium Level 2.3 mg/dL (1.6-2.6) Urinalysis Test 11/07/25 01:11 11/08/25 17:03 Urine Color Yellow (Yellow) Urine Clarity Turbid (Clear) H Urine pH 5.5 (5.0-9.0) Urine Specific [place] 1.024 (1.001-1.035) Urine Protein 2+ (Negative) H Urine Ketones Negative (Negative) Urine Blood Negative /uL (Negative) Urine Nitrite Negative (Negative) Urine Bilirubin Negative (Negative) Urine Urobilinogen 2 mg/dL (Negative) H Urine Leukocyte Esterase Negative /uL (Negative) Urine RBC 2 /hpf (0 - 4) Urine Microscopic WBC 4 /HPF (0-5) Urine Squamous Epithelial Cells Few /hpf (<5) Urine Bacteria Few /hpf (None Seen) H Urine Hyaline Casts Many /lpf (0 - 2) Urine Mucus Few (None Seen) Urine Glucose Trace mg/dL (Normal) Urine Creatinine 57.37 mg/dL (30.0-125.0) Urine Protein/Creatinine Ratio 0.78 Urine Sodium 66 mmol/L (40-220) Urine Total Protein 44.7 mg/dL (1-14) H Microbiology Microbiology Date/Time Source Procedure Growth Status 11/07/25 18:00 Nose MRSA Screen - Final Complete 11/07/25 10:25 Pleural Fluid Gram Stain - Final Resulted 11/07/25 10:25 Pleural Fluid Body Fluid Culture - Preliminary No growth Resulted 11/06/25 18:15 Blood Blood Culture - Final NO GROWTH AFTER 5 DAYS OF INCUBATION. Complete Assessment/Plan Assessment/Plan Impression: Acute on chronic hypoxic respiratory failure Dependence on supplemental oxygen Pleural effusion, large, left. Atelectasis Chronic obstructive pulmonary disease Acute kidney injury Obesity Events: Remains on supplemental oxygen, 3 LPM NC Taper O2 as tolerated S/p left thoracentesis on 11/09/25 - drained 2.3 liters. Pleural fluid was sent for CEA testing CT chest with contrast demonstrated an ex vacuo pneumothorax Likely trapped lung due to malignancy Cytology report from pleural fluid demonstrated adenocarcinoma of the lung Recommend referral to Oncology Recommend biopsy as inpatient or outpatient. Continue bronchodilators Complete antibiotic course MRSA negative Blood cx, pleural fluid cx show no growth thus far. Monitor hemoglobin Transfuse if less than 7.0 g/dL. Elevated blood sugars - Insulin Continue to monitor Accu-Cheks Pt is receiving bicarbonate and Lasix in preparation for IV contrast, per Nephrology recommendations. Monitor renal function. Monitor electrolytes. Supplement as necessary. Monitor ins and outs S/p thoracentesis, 1.1 L fluid removed by IR on 11/07/25. Cytology shows pleural fluid glucose 66, total protein 4.9, possible exudative pleural effusion Echo 2D revealed LVH, LVEF 60%, small pericardial effusion. Cardiology recs appreciated Nicotine patch Labs and imaging reviewed. Rest of plan as noted below. Plan: Supplemental oxygen Titrate to keep O2 sats above 92%. CXR (11/07) demonstrates complete opacification of the left hemithorax. No pneumothorax. Mild infiltrate, right lung base S/p left thoracentesis on 11/07/25 with removal of 1.1 liters of fluid. Chest CT (11/06) reveals: Large left pleural effusion occupying the entire left hemithorax with complete left lung collapse and concomitant shift of the mediastinal structures to the right. Subsolid perifissural lateral right lower lobe pulmonary nodule. V/Q scan shows low probability for PE. Bilateral lower extremity venous ultrasound negative for DVT. Continue bronchodilators. Continue antibiotics Incentive spirometry Blood pressure control. Accu-Cheks, ISS PRN. Diurese with Lasix as tolerated Monitor renal function. Monitor electrolytes. Supplement as necessary. Monitor ins and outs. Recommend diet and lifestyle modifications for weight reduction Obesity complicates all care DVT prophylaxis. Prognosis: Poor given patient's multiple co-morbidities. Rest of plan per hospitalist and other consultants. Thank you, Dr. Rashid, for allowing me to participate in this patient's care. Further recommendations will depend on the patient's clinical course. Please do not hesitate to contact me if you have any questions or concerns. This medical document was created using an electronic medical record system with [employer] dictation system. Although these documentations are being carefully reviewed, there may still be some phonetic and typographical changes. The errors are purely typographical, due to imperfection on the software program, and do not reflect any compromise in the patient's medical care. Plan discussed with: Patient, Other (RN) Visit Coding Pulmonary Billing Provider: JORGITO ACEVES MD Date of Service if different f: Nov 11, 2025 Common Visit Codes: [id number] INP/OBS CARE(HIGH) JORGITO ACEVES MD Nov 12, 2025 08:08
--- NOTE | 2025-11-12 10:32 | DVH ---
CHEST RADIOGRAPH INDICATION: lung mass/effusion TECHNIQUE: Single frontal view of the chest was obtained. COMPARISON: CT CHEST WITH CONTRAST on DOS: 11/10/25, US CHEST ULTRASOUND on DOS: 11/09/25 FINDINGS: Moderate left hydropneumothorax, similar to the prior CT chest given differences in modality. There is masslike consolidation again seen in the left perihilar region. Mild right basilar atelectasis and underlying pulmonary vascular congestion. Stable cardiomediastinal silhouette. IMPRESSION: Moderate left hydropneumothorax, similar to the prior CT chest given differences in modality.
--- NOTE | 2025-11-12 12:01 | DVHDSRES ---
Discharge Summary Date of Admission Resident Creating Document: MIKAL RASHID RESIDENT Nov 06, 2025 at 20:08 Date of Discharge: Nov 12, 2025 Admitting Diagnosis Acute hypoxic respiratory failure due to massive left-sided pleural effusion Labs/Diagnostic Data: Laboratory Results Test 11/12/25 06:16 11/12/25 05:47 11/09/25 12:36 11/08/25 17:03 POC Glucose 101 mg/dl (70-106) White Blood Count 5.1 10^3/uL (4.4-10.8) Red Blood Count 5.48 10^6/uL (4.0-5.20) Hemoglobin 13.8 g/dL (12.2-16.2) Hematocrit 42.8 % (36.0-46.0) Mean Corpuscular Volume 78.1 fL (80.0-100.0) Mean Corpuscular Hemoglobin 25.2 pg (28.0-32.0) Mean Corpuscular Hemoglobin Concent 32.3 g/dL (32.0-36.0) Red Cell Distribution Width 16.2 % (11.8-14.3) Platelet Count 277 10^3/uL (140-450) Mean Platelet Volume 8.2 fL (6.9-10.8) Neutrophils (%) (Auto) 53.8 % (37.0-80.0) Lymphocytes (%) (Auto) 32.5 % (10.0-50.0) Monocytes (%) (Auto) 10.2 % (0.0-12.0) Eosinophils (%) (Auto) 2.8 % (0.0-7.0) Basophils (%) (Auto) 0.7 % (0.0-2.0) Neutrophils # (Auto) 2.8 10 ^3/uL (1.6-8.6) Lymphocytes # (Auto) 1.7 10 ^3/uL (0.4-5.4) Monocytes # (Auto) 0.5 10 ^3/uL (0-1.3) Eosinophils # (Auto) 0.1 10 ^3/uL (0-0.8) Basophils # (Auto) 0 10 ^3/uL (0-0.2) Nucleated Red Blood Cells 0.1 % Sodium Level 141 mmol/L (136-145) Potassium Level 4.1 mmol/L (3.5-5.1) Chloride Level 103 mmol/L (98-107) Carbon Dioxide Level 30 mmol/L (20-31) Anion Gap 8 (5-15) Blood Urea Nitrogen 11 mg/dL (9-23) Creatinine 1.18 mg/dL (0.550-1.02) Glomerular Filtration Rate Calc 48 mL/min (>90) BUN/Creatinine Ratio 9.3 (10.0-20.0) Serum Glucose 89 mg/dL (74-106) Calcium Level 9.7 mg/dL (8.7-10.4) Magnesium Level 2.3 mg/dL (1.6-2.6) Prothrombin Time 10.9 sec (9.3-11.8) Prothrombin Time INR 1.03 (0.9-1.15) Activated Partial Thromboplast Time 29.3 SEC (24.5-34.5) Urine Creatinine 57.37 mg/dL (30.0-125.0) Urine Protein/Creatinine Ratio 0.78 Urine Sodium 66 mmol/L (40-220) Urine Total Protein 44.7 mg/dL (1-14) Test 11/08/25 15:06 11/07/25 18:00 11/07/25 13:17 11/07/25 13:14 Insulin Level 30.4 uIU/mL (2.6-24.9) Influenza Type A Antigen Negative (Negative) Influenza Type B Antigen Negative (Negative) Lactate Dehydrogenase 228 U/L (120-246) C-Reactive Protein High Sensitivity 1.68 mg/dL (<1.0) Vitamin D 25-Hydroxy 33.7 ng/mL (30.0-100) Vitamin B12 Level 503 pg/mL (211-911) Folic Acid 8.48 ng/mL (>5.38) Test 11/07/25 10:25 11/07/25 06:00 11/07/25 01:11 11/06/25 20:38 Body Fluid Source Pleural fluid Body Fluid pH 7.0 Body Fluid WBC (Manual) 1169 CUMM (0-200) Body Fluid RBC (Manual) 1983 CUMM (0-2000) Body Fluid Mononuclear Cells 98 % Body Fluid Polymorphonuclear Cells 2 % (0-25) Body Fluid Glucose 66 mg/dL (.) Body Fluid Total Protein 4.9 g/dL (.) Erythrocyte Sedimentation Rate 8 mm/hr (0-20) Hemoglobin A1c 7.5 % A1C (<5.7) Total Bilirubin 0.3 mg/dL (0.2-1.0) Aspartate Amino Transferase (AST) 28 U/L (13-40) Alanine Aminotransferase (ALT) 37 U/L (7-40) Alkaline Phosphatase 78 U/L (46-116) Total Protein 6.2 g/dL (5.7-8.2) Albumin 3.3 g/dL (3.2-4.8) Thyroid Stimulating Hormone (TSH) 1.11 uIU/mL (0.55-4.78) Urine Color Yellow (Yellow) Urine Clarity Turbid (Clear) Urine pH 5.5 (5.0-9.0) Urine Specific [place] 1.024 (1.001-1.035) Urine Protein 2+ (Negative) Urine Ketones Negative (Negative) Urine Blood Negative /uL (Negative) Urine Nitrite Negative (Negative) Urine Bilirubin Negative (Negative) Urine Urobilinogen 2 mg/dL (Negative) Urine Leukocyte Esterase Negative /uL (Negative) Urine RBC 2 /hpf (0 - 4) Urine Microscopic WBC 4 /HPF (0-5) Urine Squamous Epithelial Cells Few /hpf (<5) Urine Bacteria Few /hpf (None Seen) Urine Hyaline Casts Many /lpf (0 - 2) Urine Mucus Few (None Seen) Urine Glucose Trace mg/dL (Normal) Urine Opiates Screen Neg (NEGATIVE) Urine Fentanyl Screen Neg (NEGATIVE) Urine Barbiturates Screen Neg (NEGATIVE) Urine Phencyclidine Screen Neg (NEGATIVE) Urine Amphetamines Screen Neg (NEGATIVE) Urine Benzodiazepines Screen Neg (NEGATIVE) Urine Cocaine Screen Neg (NEGATIVE) Urine Cannabinoids Screen Neg (NEGATIVE) Blood Gas Specimen Type Arterial Blood Gas Sample Site Right radial Blood Gas Patient Temperature 37.0 Arterial Blood Date Drawn [id number] Arterial Blood pH 7.332 (7.350-7.450) Arterial Blood Partial Pressure CO2 40.3 mmHg (32.0-45.0) Arterial Blood Partial Pressure O2 221.5 mmHg (83.0-108.0) Arterial Blood HCO3 20.9 mmol/L (21.0-28.0) Arterial Blood Oxygen Saturation 99.5 % (94.0-98.0) Arterial Blood Base Excess -4.7 mmol/L (-2.0-3.0) Arterial Blood Oxyhemoglobin 97.2 % (94.0-98.0) Arterial Blood Carboxyhemoglobin 1.8 % (0.5-1.5) Arterial Blood Methemoglobin 0.5 % (0.0-1.5) Arterial Blood Deoxyhemoglobin 0.5 % (0.0-5.0) Pancho Test Modified Blood Gas Total Hemoglobin 15.00 g/dL (12.0-16.0) Blood Gas Set Respiration Rate 12.0 Blood Gas Modality Mask - bipap FiO2 % 100.0 Blood Gas EPAP 5 Blood Gas IPAP 12 Test 11/06/25 19:07 11/06/25 18:07 Troponin I High Sensitivity 20 ng/L (</=34) D-Dimer, Quantitative 4.64 mg/L FEU (0.0-0.49) Lactic Acid Level 1.4 mmol/L (0.4-2.0) B-Type Natriuretic Peptide 37.47 pg/mL (0-100) Other Laboratory Tests 11/12/25 05:47 Brief Hx & Hospital Course: Patient is 75 years old female with a past medical history of hypertension, diabetes mellitus type 2, COPD not on home oxygen came with a complaint of shortness of breaths. As per patient she has been having shortness of breaths for last 3 weeks, increased with the exertion. Patient also endorsed cough with whitish mucus. Patient denied any fever, palpitation, leg swelling/weight loss or anorexia. CXR revealed-Opacified left kamaljit thorax may represent a large pleural effusion. CT chest- Large left pleural effusion occupying the entire left hemithorax with complete left lung collapse and concomitant shift of the mediastinal structures to the right. Subsolid perifissural lateral right lower lobe pulmonary nodule. V/Q scan low probability for PE. Doppler study of the lower extremity nonsignificant per DVT.1. Status post presumed left-sided thoracentesis and presumed trapped lung creating appearance of pneumothorax.Persistent complete collapse versus masslike appearance of the left upper lobe which is failing to re-expand. Mild re-expansion of the left lower lobe however with left infrahilar suspected mass measuring 4 x 3.3 cm and marginal interstitial areas of nodular thickening with superimposed cystic lung change. Persistent small residual left-sided pleural effusion with pleural-based nodularity/thickening concerning for malignant ascites.Peripheral interstitial nodular areas of the periphery of the right upper lobe and right lower lobe measuring 2-3 mm of indeterminate etiology and differential includes pulmonary metastatic disease versus infectious/inflammatory etiology. Echo 2D LVEF 60%. With the small pericardial effusion Hospital course-during hospital course patient had thoracentesis x2, on initial thoracentesis 1.1 L and on 2nd thoracentesis 2 .3 L fluid was removed. Patient was seen by tumbler machine operator. Thoracentesis was done by tumbler machine operator. Pleural fluid study revealed exudative effusion. reviewed CT chest with contrast -S/P presumed left-sided thoracentesis and presumed trapped lung creating appearance of pneumothorax.Persistent complete collapse versus masslike appearance of the left upper lobe which is failing to re-expand. Mild re-expansion of the left lower lobe however with left infrahilar suspected mass measuring 4 x 3.3 cm and marginal interstitial areas of nodular thickening with superimposed cystic lung change. Persistent small residual left-sided pleural effusion with pleural-based nodularity/thickening concerning for malignant ascites. Peripheral interstitial nodular areas of the periphery of the right upper lobe and right lower lobe measuring 2-3 mm of indeterminate etiology and differential includes pulmonary metastatic disease versus infectious/inflammatory etiology.-pleural fluid cytology revealed metastatic adenocarcinoma of the lung. Patient's symptoms improved after thoracentesis. Patient was also seen by jelly filter tender for ISRAEL on CKD. Patient requires the criteria for home health for home oxygen. patient is being discharged with the advised to follow up at discharge clinic, with the PCP for referral for lung biopsy, follow up with the Oncology, follow up with the tumbler machine operator and follow up with the jelly filter tender. Patient was hemodynamically stable on discharge. All questions were answered. General examination- awake, alert HEENT- PEERLA, no acute nasal discharge Cardiovascular- S1-S2 audible, rate and rhythm regular, no murmur Respiratory- diminished breath sound of the left side of the lung Gastrointestinal-nontender, bowel sound+. Nondistended Musculoskeletal-no acute joint swelling or tenderness or redness Lower extremity- no leg edema Neurological- cranial nerves intact, no acute dysarthria or dysphagia Psychiatry- denies depression or SI or HI Skin- no acute rash or purpura #Acute hypoxic respiratory failure likely due to parapneumonic effusion/malignant pleural effusion, likely exudative with concomitant mediastinal shifting to the right # suspected pneumonia Gram-positive versus Gram-negative # metastatic adenocarcinoma of the left lung m # right lung pulmonary nodule # left lung collapse, mass lesion # COPD # ISRA[place] likely due to VMN # hypertension # diabetes mellitus type 2 with hyperglycemia # small pericardial effusion Plan Follow up at [facility] Follow up with the PCP and get a referral for outpatient lung biopsy Follow up with the oncologist Follow up with the tumbler machine operator Dr. Aceves Doxycycline 100 mg p.o. b.i.d. for 5 days Metformin 500 mg p.o. b.i.d. Nephrology consultation for CKD Lasix 20 mg p.o. daily Resume other home medication Plan of care discussed with Dr. Chowdary Consults/Reason for consult Patient: LENORA BROWN Acct: [id number] : 1950 Loc: [facility] Age/Sex: 75/F [id number] Subjective DOS: 11/11/2025 Patient seen and examined at bedside. Remains on supplemental oxygen Overnight events reviewed. Changes from previous H/P or p: No Changes Objective Vitals Vital Signs Date Time Temp Pulse Resp B/P (MAP) Pulse Ox O2 Delivery O2 Flow Rate FiO2 11/12/25 05:37 60 16 100 11/12/25 05:16 Room Air* 0 21 11/12/25 05:00 98.1 133/61 (85) 98.1 Intake/Output Intake and Output 11/12/25 07:00 Intake Total 1150 ml Balance 1150 ml Intake Oral 1100 ml IV Total 50 ml # Voids 5 # Bowel Movements 2 Exam Gen.: Patient lying in bed in no apparent distress. On supplemental oxygen. Head: Normocephalic, atraumatic. Eyes: EOMI/PERRLA. Ears: Normal hearing. Normal anatomy. Neck/trachea: Trachea midline, supple. Nose: Normal external anatomy. Mouth: Moist mucous membranes. Chest: Decreased air entry bilaterally. No wheezing or rhonchi. Cardiovascular: Positive S1, positive S2. Regular rate and rhythm. Abdomen: Positive bowel sounds in all 4 quadrants. Soft, non-tender, non- distended. : Deferred. Rectal: Deferred. Skin: Warm, dry. Intact. Extremities: 2+ radial pulses bilaterally. No lower extremity edema. Neuro: Awake, alert, oriented x3. No gross motor or sensory deficits. Cranial nerves II through XII intact. Gait not assessed. Medications Current Medications Medications Dose Ordered Sig/Indra Route Start Time Stop Time Status Last Admin Dose Admin Nitroglycerin 0.4 mg Q5MINP PRN SL 11/06/25 20:15 Ondansetron HCl 4 mg Q4HP PRN IV 11/06/25 20:30 Enoxaparin Sodium 30 mg DAILY SC 11/07/25 10:00 11/11/25 10:14 30 MG Acetaminophen 650 mg Q6HP PRN PO 11/06/25 20:30 11/12/25 02:55 650 MG Albuterol 2.5 mg Q6HWA NEB 11/07/25 18:00 11/12/25 05:16 2.5 MG Ipratropium [place] 0.5 mg Q6HWA NEB 11/07/25 18:00 11/12/25 05:16 0.5 MG Nicotine 1 patch DAILY TD 11/08/25 10:00 11/11/25 10:17 1 PATCH Ceftriaxone Sodium 50 ml @ 100 mls/hr DAILY@09 IV 11/10/25 09:00 11/11/25 10:17 100 MLS/HR Azithromycin 250 mg DAILY PO 11/10/25 10:00 11/11/25 10:17 250 MG Diagnostic Test (Pha) 1 strip ACHS 11/11/25 11:30 11/12/25 06:18 1 STRIP Insulin Human Regular ACHS SC 11/11/25 11:30 11/11/25 22:12 6 UNITS Dextrose 50 ml UD PRN IV 11/11/25 07:15 Morphine Sulfate 2 mg Q30M PRN IV 11/11/25 09:15 Furosemide 20 mg DAILY PO 11/12/25 10:00 Laboratory Results Laboratory Tests 11/12/25 05:47 Chemistry Test 11/12/25 05:47 Calcium Level 9.7 mg/dL (8.7-10.4) Magnesium Level 2.3 mg/dL (1.6-2.6) Urinalysis Test 11/07/25 01:11 11/08/25 17:03 Urine Color Yellow (Yellow) Urine Clarity Turbid (Clear) H Urine pH 5.5 (5.0-9.0) Urine Specific [place] 1.024 (1.001-1.035) Urine Protein 2+ (Negative) H Urine Ketones Negative (Negative) Urine Blood Negative /uL (Negative) Urine Nitrite Negative (Negative) Urine Bilirubin Negative (Negative) Urine Urobilinogen 2 mg/dL (Negative) H Urine Leukocyte Esterase Negative /uL (Negative) Urine RBC 2 /hpf (0 - 4) Urine Microscopic WBC 4 /HPF (0-5) Urine Squamous Epithelial Cells Few /hpf (<5) Urine Bacteria Few /hpf (None Seen) H Urine Hyaline Casts Many /lpf (0 - 2) Urine Mucus Few (None Seen) Urine Glucose Trace mg/dL (Normal) Urine Creatinine 57.37 mg/dL (30.0-125.0) Urine Protein/Creatinine Ratio 0.78 Urine Sodium 66 mmol/L (40-220) Urine Total Protein 44.7 mg/dL (1-14) H Microbiology Microbiology Date/Time Source Procedure Growth Status 11/07/25 18:00 Nose MRSA Screen - Final Complete 11/07/25 10:25 Pleural Fluid Gram Stain - Final Resulted 11/07/25 10:25 Pleural Fluid Body Fluid Culture - Preliminary No growth Resulted 11/06/25 18:15 Blood Blood Culture - Final NO GROWTH AFTER 5 DAYS OF INCUBATION. Complete Assessment/Plan Assessment/Plan Impression: Acute on chronic hypoxic respiratory failure Dependence on supplemental oxygen Pleural effusion, large, left. Atelectasis Chronic obstructive pulmonary disease Acute kidney injury Obesity Events: Remains on supplemental oxygen, 3 LPM NC Taper O2 as tolerated S/p left thoracentesis on 11/09/25 - drained 2.3 liters. Pleural fluid was sent for CEA testing CT chest with contrast demonstrated an ex vacuo pneumothorax Likely trapped lung due to malignancy Cytology report from pleural fluid demonstrated adenocarcinoma of the lung Recommend referral to Oncology Recommend biopsy as inpatient or outpatient. Continue bronchodilators Complete antibiotic course MRSA negative Blood cx, pleural fluid cx show no growth thus far. Monitor hemoglobin Transfuse if less than 7.0 g/dL. Elevated blood sugars - Insulin Continue to monitor Accu-Cheks Pt is receiving bicarbonate and Lasix in preparation for IV contrast, per Nephrology recommendations. Monitor renal function. Monitor electrolytes. Supplement as necessary. Monitor ins and outs S/p thoracentesis, 1.1 L fluid removed by IR on 11/07/25. Cytology shows pleural fluid glucose 66, total protein 4.9, possible exudative pleural effusion Echo 2D revealed LVH, LVEF 60%, small pericardial effusion. Cardiology recs appreciated Nicotine patch Labs and imaging reviewed. Rest of plan as noted below. Plan: Supplemental oxygen Titrate to keep O2 sats above 92%. CXR (11/07) demonstrates complete opacification of the left hemithorax. No pneumothorax. Mild infiltrate, right lung base S/p left thoracentesis on 11/07/25 with removal of 1.1 liters of fluid. Chest CT (11/06) reveals: Large left pleural effusion occupying the entire left hemithorax with complete left lung collapse and concomitant shift of the mediastinal structures to the right. Subsolid perifissural lateral right lower lobe pulmonary nodule. V/Q scan shows low probability for PE. Bilateral lower extremity venous ultrasound negative for DVT. Continue bronchodilators. Continue antibiotics Incentive spirometry Blood pressure control. Accu-Cheks, ISS PRN. Diurese with Lasix as tolerated Monitor renal function. Monitor electrolytes. Supplement as necessary. Monitor ins and outs. Recommend diet and lifestyle modifications for weight reduction Obesity complicates all care DVT prophylaxis. Prognosis: Poor given patient's multiple co-morbidities. Rest of plan per hospitalist and other consultants. Thank you, Dr. Rashid, for allowing me to participate in this patient's care. Further recommendations will depend on the patient's clinical course. Please do not hesitate to contact me if you have any questions or concerns. This medical document was created using an electronic medical record system with Truli dictation system. Although these documentations are being carefully reviewed, there may still be some phonetic and typographical changes. The errors are purely typographical, due to imperfection on the software program, and do not reflect any compromise in the patient's medical care. Plan discussed with: Patient, Other (RN) Visit Coding Pulmonary Billing Provider: JORGITO ACEVES MD Date of Service if different f: Nov 11, 2025 Common Visit Codes: 26548-[id number] INP/OBS CARE(HIGH) JORGITO ACEVES MD Nov 12, 2025 08:08 E/M VISIT PERFORMED BY: TRANSCRIBED BY:JORGITO ACEVES MD TRANSCRIBED DATE/TIME:11/12/25 08 ELECTRONICALLY SIGNED BY:JORGITO ACEVES MD 11/12/25 08 ELECTRONICALLY CO-SIGNED BY: Patient: LENORA BROWN Acct: [id number] : 1950 Loc: [facility] Age/Sex: 75/F [id number] Progress Note Date Seen: Nov 11, 2025 Medical Necessity Reason Pt with a Central, PICC or Fol: No Subjective Changes from previous H/P or p: No Changes Objective vital signs Vital Sign Date Time Temp Pulse Resp B/P (MAP) Pulse Ox O2 Delivery O2 Flow Rate FiO2 11/11/25 12:37 97.7 71 17 114/60 (78) 92 97.7 11/11/25 12:23 Nasal Cannula* 2 28 Total Intake and Output 11/10/25 11/10/25 11/11/25 15:00 23:00 07:00 Intake Total 50 ml 480 ml 275 ml Balance 50 ml 480 ml 275 ml medications Current Medications Medications Dose Ordered Sig/Indra Route Start Time Stop Time Status Last Admin Dose Admin Nitroglycerin 0.4 mg Q5MINP PRN SL 11/06/25 20:15 Ondansetron HCl 4 mg Q4HP PRN IV 11/06/25 20:30 Enoxaparin Sodium 30 mg DAILY SC 11/07/25 10:00 11/11/25 10:14 30 MG Acetaminophen 650 mg Q6HP PRN PO 11/06/25 20:30 11/09/25 22:35 650 MG Albuterol 2.5 mg Q6HWA NEB 11/07/25 18:00 11/11/25 12:17 2.5 MG Ipratropium [place] 0.5 mg Q6HWA NEB 11/07/25 18:00 11/11/25 12:17 0.5 MG Nicotine 1 patch DAILY TD 11/08/25 10:00 11/11/25 10:17 1 PATCH Ceftriaxone Sodium 50 ml @ 100 mls/hr DAILY@09 IV 11/10/25 09:00 11/11/25 10:17 100 MLS/HR Azithromycin 250 mg DAILY PO 11/10/25 10:00 11/11/25 10:17 250 MG Diagnostic Test (Pha) 1 strip ACHS 11/11/25 11:30 11/11/25 11:18 1 STRIP Insulin Human Regular ACHS SC 11/11/25 11:30 11/11/25 11:42 4 UNITS Dextrose 50 ml UD PRN IV 11/11/25 07:15 Morphine Sulfate 2 mg Q30M PRN IV 11/11/25 09:15 Examination: GENERAL:Abnormal, LUNGS:Abnormal, CVS:Normal laboratory and microbiology Laboratory Tests 11/11/25 06:37 Test 11/11/25 06:37 Range/Units Serum Glucose 201 H 74-106 mg/dL Microbiology Date/Time Source Procedure Growth Status 11/07/25 18:00 Nose MRSA Screen - Final Complete 11/07/25 10:25 Pleural Fluid Gram Stain - Final Resulted 11/07/25 10:25 Pleural Fluid Body Fluid Culture - Preliminary No growth Resulted 11/06/25 18:15 Blood Blood Culture - Preliminary NO GROWTH AFTER 72 HOURS OF INCUBATION. Resulted Problem List/Assessment/Plan Problem List/Assessment/Plan Acute kidney injury hemodynamic ckd unspecified COPD pleural effusion Adenocarcinoma of Lung, trapped lung hyperkalemia Dm2 lasix US kidney bladder unremarkable new lung findings noted by Pulm concerning for lung Ca planned for oncology eval echo- LVH EF 60% strict I/O pulm Plan discussed with: Patient My Orders My Orders Orders - SILVINO FARIAS MD Procedure Category Date Status Time Kidney US 11/10/25 Resulted 14:03 SILVINO FARIAS MD Nov 11, 2025 14:04 E/M VISIT PERFORMED BY: TRANSCRIBED BY:SILVINO FARIAS MD TRANSCRIBED DATE/TIME:11/11/25 140 ELECTRONICALLY SIGNED BY:SILVINO FARIAS MD 11/11/25 1404 ELECTRONICALLY CO-SIGNED BY: Patient Name: LENORA BROWN Acct: [id number] Room: [facility] /Bed: A Attending Physician: MIKAL RASHID RESIDENT Loc: [facility] Unit: [id number] CONSULTATION REPORT . ................................................................................ ............................................................................... Date of service: Nov 10, [address] Chowdary Reason for Consultation [place] History of Present Illness 75 year old female hx dm2, htn, ckd . She does not know her ckd stage. She denies hx CHF. She presents with progressive SOb. Her hospital course was notable for large pleural effusion which required thoracentesis. Nephrology was called for elevated cr. Allergies: Coded Allergies: NO KNOWN ALLERGIES (Unverified , 11/06/25) Home Meds Reported Medications Lisinopril (Lisinopril) 20 Mg Tab, 1 TAB PO DAILY, #30 TAB 5 Refills 11/07/25 Glipizide (Glipizide Er) 10 Mg Tab, 1 TAB PO DAILY, #90 TAB 1 Refill 11/07/25 Insulin Glargine-Yfgn (Insulin Glargine) 100 Unit/Ml [place], 100 UNIT SC, ML 11/07/25 Metformin Hydrochloride (Metformin Hcl) 500 Mg Tab, 1 TAB PO BID, #60 TAB 3 Refills 11/07/25 Fluticasone-Salmeterol (Advair Diskus 250/50) 1 Puff Ih, 1 PUFF INH BID, #3 INHALER 3 Refills 11/07/25 Albuterol Sulfate (Albuterol Sulfate Hfa) 108 Mcg/Act Aer, 108 MCG IN, AER 11/07/25 Current Medications Current Medications Medications (Trade) Dose Ordered Sig/Indra Route PRN Reason Start Time Stop Time Status Last Admin Ceftriaxone Sodium 50 ml @ 100 mls/hr DAILY@09 IV 11/10/25 09:00 11/10/25 09:56 Azithromycin (Zithromax Tablet) 250 mg DAILY PO 11/10/25 10:00 11/10/25 09:56 Family History: Patient reports no known family medical history. Review of Systems SOB H&P Exam Vital Signs/I&O Vital Sign Date Time Temp Pulse Resp B/P (MAP) Pulse Ox O2 Delivery O2 Flow Rate FiO2 11/10/25 12:50 97.3 70 22 124/52 (76) 97 97.3 11/10/25 11:41 Nasal Cannula* 3 32 Intake and Output 11/09/25 11/10/25 19:00 07:00 Intake Total 1430 ml 188 ml Output Total 1250 ml 5 ml Balance 180 ml 183 ml Intake Oral 1300 ml 188 ml IV Total 130 ml Output Urine Total 1250 ml 5 ml # Bowel Movements 1 2 Physical Exam eldely female nad abd soft no pitting edema rrr Labs/Diagnostic Data Labs/Diagnostic Data Laboratory Tests Test 11/10/25 11:55 11/10/25 09:37 11/09/25 22:38 11/09/25 17:10 Range/Units POC Glucose 189 H 183 H 215 H 70-106 mg/dl White Blood Count 5.4 4.4-10.8 10^3/uL Red Blood Count 5.51 H 4.0-5.20 10^6/uL Hemoglobin 14.0 12.2-16.2 g/dL Hematocrit 43.6 36.0-46.0 % Mean Corpuscular Volume 79.1 L 80.0-100.0 fL Mean Corpuscular Hemoglobin 25.3 L 28.0-32.0 pg Mean Corpuscular Hemoglobin Concent 32.0 32.0-36.0 g/dL Red Cell Distribution Width 16.5 H 11.8-14.3 % Platelet Count 263 140-450 10^3/uL Mean Platelet Volume 7.7 6.9-10.8 fL Neutrophils (%) (Auto) 69.1 37.0-80.0 % Lymphocytes (%) (Auto) 20.2 10.0-50.0 % Monocytes (%) (Auto) 7.7 0.0-12.0 % Eosinophils (%) (Auto) 2.0 0.0-7.0 % Basophils (%) (Auto) 1.0 0.0-2.0 % Neutrophils # (Auto) 3.7 1.6-8.6 10 ^3/uL Lymphocytes # (Auto) 1.1 0.4-5.4 10 ^3/uL Monocytes # (Auto) 0.4 0-1.3 10 ^3/uL Eosinophils # (Auto) 0.1 0-0.8 10 ^3/uL Basophils # (Auto) 0.1 0-0.2 10 ^3/uL Nucleated Red Blood Cells 0.1 % Sodium Level 139 136-145 mmol/L Potassium Level 5.0 3.5-5.1 mmol/L Chloride Level 109 H 98-107 mmol/L Carbon Dioxide Level 26 20-31 mmol/L Anion Gap 4 L 5-15 Blood Urea Nitrogen 10 9-23 mg/dL Creatinine 1.32 H 0.550-1.02 mg/dL Glomerular Filtration Rate Calc 42 >90 mL/min BUN/Creatinine Ratio 7.6 L 10.0-20.0 Serum Glucose 177 H 74-106 mg/dL Calcium Level 9.4 8.7-10.4 mg/dL Magnesium Level 2.1 1.6-2.6 mg/dL Test 11/09/25 12:36 11/09/25 10:55 11/09/25 06:12 11/09/25 04:48 Range/Units Prothrombin Time 10.9 9.3-11.8 sec Prothrombin Time INR 1.03 0.9-1.15 Activated Partial Thromboplast Time 29.3 24.5-34.5 SEC POC Glucose 194 H 124 H 70-106 mg/dl White Blood Count 5.3 4.4-10.8 10^3/uL Red Blood Count 5.15 4.0-5.20 10^6/uL Hemoglobin 12.9 12.2-16.2 g/dL Hematocrit 40.4 36.0-46.0 % Mean Corpuscular Volume 78.4 L 80.0-100.0 fL Mean Corpuscular Hemoglobin 25.1 L 28.0-32.0 pg Mean Corpuscular Hemoglobin Concent 32.0 32.0-36.0 g/dL Red Cell Distribution Width 16.2 H 11.8-14.3 % Platelet Count 261 140-450 10^3/uL Mean Platelet Volume 8.2 6.9-10.8 fL Neutrophils (%) (Auto) 63.0 37.0-80.0 % Lymphocytes (%) (Auto) 24.6 10.0-50.0 % Monocytes (%) (Auto) 9.9 0.0-12.0 % Eosinophils (%) (Auto) 2.1 0.0-7.0 % Basophils (%) (Auto) 0.4 0.0-2.0 % Neutrophils # (Auto) 3.3 1.6-8.6 10 ^3/uL Lymphocytes # (Auto) 1.3 0.4-5.4 10 ^3/uL Monocytes # (Auto) 0.5 0-1.3 10 ^3/uL Eosinophils # (Auto) 0.1 0-0.8 10 ^3/uL Basophils # (Auto) 0 0-0.2 10 ^3/uL Nucleated Red Blood Cells 0.0 % Sodium Level 141 136-145 mmol/L Potassium Level 4.9 3.5-5.1 mmol/L Chloride Level 109 H 98-107 mmol/L Carbon Dioxide Level 25 20-31 mmol/L Anion Gap 7 5-15 Blood Urea Nitrogen 17 9-23 mg/dL Creatinine 1.62 H 0.550-1.02 mg/dL Glomerular Filtration Rate Calc 33 >90 mL/min BUN/Creatinine Ratio 10.5 10.0-20.0 Serum Glucose 121 H 74-106 mg/dL Calcium Level 9.2 8.7-10.4 mg/dL Magnesium Level 2.2 1.6-2.6 mg/dL Test 11/08/25 17:36 11/08/25 17:03 11/08/25 15:06 11/08/25 11:16 Range/Units POC Glucose 202 H 150 H 70-106 mg/dl Urine Creatinine 57.37 30.0-125.0 mg/dL Urine Protein/Creatinine Ratio 0.78 Urine Sodium 66 40-220 mmol/L Urine Total Protein 44.7 H 1-14 mg/dL Insulin Level 30.4 H 2.6-24.9 uIU/mL Test 11/08/25 06:35 11/08/25 05:10 11/08/25 04:56 11/07/25 21:10 Range/Units POC Glucose 154 H 47 *L 230 H 70-106 mg/dl White Blood Count 5.6 4.4-10.8 10^3/uL Red Blood Count 5.20 4.0-5.20 10^6/uL Hemoglobin 13.2 12.2-16.2 g/dL Hematocrit 41.3 36.0-46.0 % Mean Corpuscular Volume 79.4 L 80.0-100.0 fL Mean Corpuscular Hemoglobin 25.4 L 28.0-32.0 pg Mean Corpuscular Hemoglobin Concent 31.9 L 32.0-36.0 g/dL Red Cell Distribution Width 16.5 H 11.8-14.3 % Platelet Count 253 140-450 10^3/uL Mean Platelet Volume 7.9 6.9-10.8 fL Neutrophils (%) (Auto) 63.1 37.0-80.0 % Lymphocytes (%) (Auto) 24.0 10.0-50.0 % Monocytes (%) (Auto) 10.9 0.0-12.0 % Eosinophils (%) (Auto) 1.7 0.0-7.0 % Basophils (%) (Auto) 0.3 0.0-2.0 % Neutrophils # (Auto) 3.5 1.6-8.6 10 ^3/uL Lymphocytes # (Auto) 1.3 0.4-5.4 10 ^3/uL Monocytes # (Auto) 0.6 0-1.3 10 ^3/uL Eosinophils # (Auto) 0.1 0-0.8 10 ^3/uL Basophils # (Auto) 0 0-0.2 10 ^3/uL Nucleated Red Blood Cells 0.1 % Sodium Level 142 136-145 mmol/L Potassium Level 4.8 3.5-5.1 mmol/L Chloride Level 110 H 98-107 mmol/L Carbon Dioxide Level 26 20-31 mmol/L Anion Gap 6 5-15 Blood Urea Nitrogen 17 9-23 mg/dL Creatinine 1.51 H 0.550-1.02 mg/dL Glomerular Filtration Rate Calc 36 >90 mL/min BUN/Creatinine Ratio 11.3 10.0-20.0 Serum Glucose 37 *L 74-106 mg/dL Calcium Level 9.1 8.7-10.4 mg/dL Magnesium Level 2.4 1.6-2.6 mg/dL Test 11/07/25 18:00 11/07/25 17:24 11/07/25 13:17 11/07/25 13:14 Range/Units Influenza Type A Antigen Negative Negative Influenza Type B Antigen Negative Negative POC Glucose 116 H 70-106 mg/dl Lactate Dehydrogenase 228 120-246 U/L C-Reactive Protein High Sensitivity 1.68 H <1.0 mg/dL Vitamin D 25-Hydroxy 33.7 30.0-100 ng/mL Vitamin B12 Level 503 211-911 pg/mL Folic Acid 8.48 >5.38 ng/mL Test 11/07/25 12:51 11/07/25 10:25 11/07/25 08:18 11/07/25 06:00 Range/Units POC Glucose 97 100 70-106 mg/dl Body Fluid Source Pleural fluid Body Fluid pH 7.0 Body Fluid WBC (Manual) 1169 H 0-200 CUMM Body Fluid RBC (Manual) 1983 0-2000 CUMM Body Fluid Mononuclear Cells 98 % Body Fluid Polymorphonuclear Cells 2 0-25 % Body Fluid Glucose 66 . mg/dL Body Fluid Total Protein 4.9 . g/dL White Blood Count 6.6 4.4-10.8 10^3/uL Red Blood Count 5.52 H 4.0-5.20 10^6/uL Hemoglobin 14.1 12.2-16.2 g/dL Hematocrit 44.0 36.0-46.0 % Mean Corpuscular Volume 79.6 L 80.0-100.0 fL Mean Corpuscular Hemoglobin 25.5 L 28.0-32.0 pg Mean Corpuscular Hemoglobin Concent 32.0 32.0-36.0 g/dL Red Cell Distribution Width 16.3 H 11.8-14.3 % Platelet Count 255 140-450 10^3/uL Mean Platelet Volume 8.2 6.9-10.8 fL Neutrophils (%) (Auto) 76.5 37.0-80.0 % Lymphocytes (%) (Auto) 13.8 10.0-50.0 % Monocytes (%) (Auto) 8.6 0.0-12.0 % Eosinophils (%) (Auto) 0.5 0.0-7.0 % Basophils (%) (Auto) 0.6 0.0-2.0 % Neutrophils # (Auto) 5.0 1.6-8.6 10 ^3/uL Lymphocytes # (Auto) 0.9 0.4-5.4 10 ^3/uL Monocytes # (Auto) 0.6 0-1.3 10 ^3/uL Eosinophils # (Auto) 0 0-0.8 10 ^3/uL Basophils # (Auto) 0 0-0.2 10 ^3/uL Nucleated Red Blood Cells 0.1 % Erythrocyte Sedimentation Rate 8 0-20 mm/hr Sodium Level 142 136-145 mmol/L Potassium Level 4.5 3.5-5.1 mmol/L Chloride Level 112 H 98-107 mmol/L Carbon Dioxide Level 23 20-31 mmol/L Anion Gap 7 5-15 Blood Urea Nitrogen 20 9-23 mg/dL Creatinine 1.68 H 0.550-1.02 mg/dL Glomerular Filtration Rate Calc 31 >90 mL/min BUN/Creatinine Ratio 11.9 10.0-20.0 Serum Glucose 35 *L 74-106 mg/dL Hemoglobin A1c 7.5 H <5.7 % A1C Calcium Level 9.2 8.7-10.4 mg/dL Total Bilirubin 0.3 0.2-1.0 mg/dL Aspartate Amino Transferase (AST) 28 13-40 U/L Alanine Aminotransferase (ALT) 37 7-40 U/L Alkaline Phosphatase 78 46-116 U/L Total Protein 6.2 5.7-8.2 g/dL Albumin 3.3 3.2-4.8 g/dL Thyroid Stimulating Hormone (TSH) 1.11 0.55-4.78 uIU/mL Test 11/07/25 01:11 11/06/25 22:05 11/06/25 20:38 11/06/25 19:07 Range/Units Urine Color Yellow Yellow Urine Clarity Turbid H Clear Urine pH 5.5 5.0-9.0 Urine Specific [place] 1.024 1.001-1.035 Urine Protein 2+ H Negative Urine Ketones Negative Negative Urine Blood Negative Negative /uL Urine Nitrite Negative Negative Urine Bilirubin Negative Negative Urine Urobilinogen 2 H Negative mg/dL Urine Leukocyte Esterase Negative Negative /uL Urine RBC 2 0 - 4 /hpf Urine Microscopic WBC 4 0-5 /HPF Urine Squamous Epithelial Cells Few <5 /hpf Urine Bacteria Few H None Seen /hpf Urine Hyaline Casts Many 0 - 2 /lpf Urine Mucus Few None Seen Urine Glucose Trace Normal mg/dL Urine Opiates Screen Neg NEGATIVE Urine Fentanyl Screen Neg NEGATIVE Urine Barbiturates Screen Neg NEGATIVE Urine Phencyclidine Screen Neg NEGATIVE Urine Amphetamines Screen Neg NEGATIVE Urine Benzodiazepines Screen Neg NEGATIVE Urine Cocaine Screen Neg NEGATIVE Urine Cannabinoids Screen Neg NEGATIVE POC Glucose 140 H 70-106 mg/dl Blood Gas Specimen Type Arterial Blood Gas Sample Site Right radial Blood Gas Patient Temperature 37.0 Arterial Blood Date Drawn [id number] Arterial Blood pH 7.332 L 7.350-7.450 Arterial Blood Partial Pressure CO2 40.3 32.0-45.0 mmHg Arterial Blood Partial Pressure O2 221.5 H 83.0-108.0 mmHg Arterial Blood HCO3 20.9 L 21.0-28.0 mmol/L Arterial Blood Oxygen Saturation 99.5 H 94.0-98.0 % Arterial Blood Base Excess -4.7 L -2.0-3.0 mmol/L Arterial Blood Oxyhemoglobin 97.2 94.0-98.0 % Arterial Blood Carboxyhemoglobin 1.8 H 0.5-1.5 % Arterial Blood Methemoglobin 0.5 0.0-1.5 % Arterial Blood Deoxyhemoglobin 0.5 0.0-5.0 % Pancho Test Modified Blood Gas Total Hemoglobin 15.00 12.0-16.0 g/dL Blood Gas Set Respiration Rate 12.0 Blood Gas Modality Mask - bipap FiO2 % 100.0 Blood Gas EPAP 5 Blood Gas IPAP 12 Troponin I High Sensitivity 20 </=34 ng/L Test 11/06/25 18:07 Range/Units White Blood Count 7.4 4.4-10.8 10^3/uL Red Blood Count 5.97 H 4.0-5.20 10^6/uL Hemoglobin 15.3 12.2-16.2 g/dL Hematocrit 47.8 H 36.0-46.0 % Mean Corpuscular Volume 80.0 80.0-100.0 fL Mean Corpuscular Hemoglobin 25.6 L 28.0-32.0 pg Mean Corpuscular Hemoglobin Concent 31.9 L 32.0-36.0 g/dL Red Cell Distribution Width 16.5 H 11.8-14.3 % Platelet Count 285 140-450 10^3/uL Mean Platelet Volume 7.8 6.9-10.8 fL Neutrophils (%) (Auto) 61.4 37.0-80.0 % Lymphocytes (%) (Auto) 28.9 10.0-50.0 % Monocytes (%) (Auto) 8.0 0.0-12.0 % Eosinophils (%) (Auto) 0.6 0.0-7.0 % Basophils (%) (Auto) 1.1 0.0-2.0 % Neutrophils # (Auto) 4.5 1.6-8.6 10 ^3/uL Lymphocytes # (Auto) 2.1 0.4-5.4 10 ^3/uL Monocytes # (Auto) 0.6 0-1.3 10 ^3/uL Eosinophils # (Auto) 0 0-0.8 10 ^3/uL Basophils # (Auto) 0.1 0-0.2 10 ^3/uL Nucleated Red Blood Cells 0.1 % D-Dimer, Quantitative 4.64 H 0.0-0.49 mg/L FEU Sodium Level 138 136-145 mmol/L Potassium Level 5.1 3.5-5.1 mmol/L Chloride Level 106 98-107 mmol/L Carbon Dioxide Level 23 20-31 mmol/L Anion Gap 9 5-15 Blood Urea Nitrogen 20 9-23 mg/dL Creatinine 1.75 H 0.550-1.02 mg/dL Glomerular Filtration Rate Calc 30 >90 mL/min BUN/Creatinine Ratio 11.4 10.0-20.0 Serum Glucose 214 H 74-106 mg/dL Lactic Acid Level 1.4 0.4-2.0 mmol/L Calcium Level 9.6 8.7-10.4 mg/dL Troponin I High Sensitivity 20 </=34 ng/L B-Type Natriuretic Peptide 37.47 0-100 pg/mL Microbiology Date/Time Source Procedure Growth Status 11/07/25 18:00 Nose MRSA Screen - Final Complete Assessment Acute kidney injury hemodynamic ckd unspecified COPD pleural effusion hyperkalemia Dm2 US kidney bladder patient is planned for CTA today. Rec pre and post hydration fluid with lasix to promote contrast excretion and prevent contrast induced nephropathy lasix echo- LVH EF 60% strict I/O pulm for copd management Plan discussed with: Patient SILVINO FARIAS MD Nov 10, 2025 14:13 DICTATED BY:SILVINO FARIAS MD DICTATED DATE/TIME:11/10/251412 ELECTRONICALLY SIGNED BY:SILVINO FARIAS MD 11/10/251412 ELECTRONICALLY CO-SIGNED BY: Patient: LENORA BROWN Acct: [id number] : 1950 Loc: CENTRAL Age/Sex: 75/F [id number] Subjective DOS: 11/09/2025 Patient seen and examined at bedside. Remains on supplemental oxygen Overnight events reviewed. Changes from previous H/P or p: No Changes Objective Vitals Vital Signs Date Time Temp Pulse Resp B/P (MAP) Pulse Ox O2 Delivery O2 Flow Rate FiO2 11/10/25 07:27 57 17 98 11/10/25 07:21 Nasal Cannula* 3 32 11/10/25 05:00 97.7 118/55 (76) 97.7 Intake/Output Intake and Output 11/10/25 07:00 Intake Total 1618 ml Output Total 1255 ml Balance 363 ml Intake Oral 1488 ml IV Total 130 ml Output Urine Total 1255 ml # Bowel Movements 3 Exam Gen.: Patient lying in bed in no apparent distress. On supplemental oxygen. Head: Normocephalic, atraumatic. Eyes: EOMI/PERRLA. Ears: Normal hearing. Normal anatomy. Neck/trachea: Trachea midline, supple. Nose: Normal external anatomy. Mouth: Moist mucous membranes. Chest: Decreased air entry bilaterally. No wheezing or rhonchi. Cardiovascular: Positive S1, positive S2. Regular rate and rhythm. Abdomen: Positive bowel sounds in all 4 quadrants. Soft, non-tender, non- distended. : Deferred. Rectal: Deferred. Skin: Warm, dry. Intact. Extremities: 2+ radial pulses bilaterally. No lower extremity edema. Neuro: Awake, alert, oriented x3. No gross motor or sensory deficits. Cranial nerves II through XII intact. Gait not assessed. Medications Current Medications Medications Dose Ordered Sig/Indra Route Start Time Stop Time Status Last Admin Dose Admin Nitroglycerin 0.4 mg Q5MINP PRN SL 11/06/25 20:15 Morphine Sulfate 2 mg Q30M PRN IV 11/06/25 20:15 Diagnostic Test (Pha) 1 strip ACHS 11/06/25 22:00 11/09/25 22:00 1 STRIP Dextrose 50 ml UD PRN IV 11/06/25 20:30 Ondansetron HCl 4 mg Q4HP PRN IV 11/06/25 20:30 Enoxaparin Sodium 30 mg DAILY SC 11/07/25 10:00 11/09/25 13:21 30 MG Acetaminophen 650 mg Q6HP PRN PO 11/06/25 20:30 11/09/25 22:35 650 MG Diagnostic Test (Pha) 1 strip ACHS 11/07/25 17:00 11/09/25 22:00 1 STRIP Albuterol 2.5 mg Q6HWA NEB 11/07/25 18:00 11/10/25 07:21 2.5 MG Ipratropium [place] 0.5 mg Q6HWA NEB 11/07/25 18:00 11/10/25 07:21 0.5 MG Nicotine 1 patch DAILY TD 11/08/25 10:00 11/09/25 08:34 1 PATCH Laboratory Results Laboratory Tests 11/09/25 04:48 Coagulation Test 11/09/25 12:36 Prothrombin Time 10.9 sec (9.3-11.8) Prothrombin Time INR 1.03 (0.9-1.15) Activated Partial Thromboplast Time 29.3 SEC (24.5-34.5) Urinalysis Test 11/07/25 01:11 11/08/25 17:03 Urine Color Yellow (Yellow) Urine Clarity Turbid (Clear) H Urine pH 5.5 (5.0-9.0) Urine Specific [place] 1.024 (1.001-1.035) Urine Protein 2+ (Negative) H Urine Ketones Negative (Negative) Urine Blood Negative /uL (Negative) Urine Nitrite Negative (Negative) Urine Bilirubin Negative (Negative) Urine Urobilinogen 2 mg/dL (Negative) H Urine Leukocyte Esterase Negative /uL (Negative) Urine RBC 2 /hpf (0 - 4) Urine Microscopic WBC 4 /HPF (0-5) Urine Squamous Epithelial Cells Few /hpf (<5) Urine Bacteria Few /hpf (None Seen) H Urine Hyaline Casts Many /lpf (0 - 2) Urine Mucus Few (None Seen) Urine Glucose Trace mg/dL (Normal) Urine Creatinine 57.37 mg/dL (30.0-125.0) Urine Protein/Creatinine Ratio 0.78 Urine Sodium 66 mmol/L (40-220) Urine Total Protein 44.7 mg/dL (1-14) H Microbiology Microbiology Date/Time Source Procedure Growth Status 11/07/25 18:00 Nose MRSA Screen - Final Complete 11/07/25 10:25 Pleural Fluid Gram Stain - Final Resulted 11/07/25 10:25 Pleural Fluid Body Fluid Culture - Preliminary No growth Resulted 11/06/25 18:15 Blood Blood Culture - Preliminary NO GROWTH AFTER 72 HOURS OF INCUBATION. Resulted Assessment/Plan Assessment/Plan Impression: Acute on chronic hypoxic respiratory failure Dependence on supplemental oxygen Pleural effusion, large, left. Atelectasis Chronic obstructive pulmonary disease Acute kidney injury Obesity Events: Remains on supplemental oxygen, 2 LPM NC Taper O2 as tolerated Improving O2 requirements S/p left thoracentesis today - drained 2.3 liters. Pleural fluid sent for CEA testing Chest x-ray post procedure is pending. Plan to obtain CT chest with contrast for further evaluation. S/p thoracentesis, 1.1 L fluid removed by IR on 11/07/25. Cytology shows pleural fluid glucose 66, total protein 4.9, possible exudative pleural effusion Echo 2D revealed LVEF 60%, small pericardial effusion. Cardiology recs appreciated Continue bronchodilators Continue IV antibiotics, Zosyn and azithromycin MRSA negative Blood cx, pleural fluid cx show no growth thus far. Monitor hemoglobin Transfuse if less than 7.0 g/dL. Patient with recurrent asymptomatic hypoglycemic episode, discontinued insulin. Continue to monitor blood sugars Continue diuresis with Lasix Monitor renal function. Monitor electrolytes. Supplement as necessary. Nicotine patch Labs and imaging reviewed. Rest of plan as noted below. Plan: Supplemental oxygen Titrate to keep O2 sats above 92%. CXR (11/07) demonstrates complete opacification of the left hemithorax. No pneumothorax. Mild infiltrate, right lung base S/p left thoracentesis on 11/07/25 with removal of 1.1 liters of fluid. Chest CT (11/06) reveals: Large left pleural effusion occupying the entire left hemithorax with complete left lung collapse and concomitant shift of the mediastinal structures to the right. Subsolid perifissural lateral right lower lobe pulmonary nodule. V/Q scan shows low probability for PE. Bilateral lower extremity venous ultrasound negative for DVT. Continue bronchodilators. Continue antibiotics Incentive spirometry Blood pressure control. Accu-Cheks, ISS PRN. Diurese with Lasix as tolerated Monitor renal function. Monitor electrolytes. Supplement as necessary. Monitor ins and outs. Recommend diet and lifestyle modifications for weight reduction Obesity complicates all care DVT prophylaxis. Prognosis: Poor given patient's multiple co-morbidities. Rest of plan per hospitalist and other consultants. Thank you, Dr. Rashid, for allowing me to participate in this patient's care. Further recommendations will depend on the patient's clinical course. Please do not hesitate to contact me if you have any questions or concerns. This medical document was created using an electronic medical record system with Truli dictation system. Although these documentations are being carefully reviewed, there may still be some phonetic and typographical changes. The errors are purely typographical, due to imperfection on the software program, and do not reflect any compromise in the patient's medical care. Plan discussed with: Patient, Other (RN) Visit Coding Pulmonary Billing Provider: JORGITO ACEVES MD Date of Service if different f: Nov 09, 2025 Common Visit Codes: 44559-[id number] INP/OBS CARE(HIGH) JORGITO ACEVES MD Nov 10, 2025 08:13 E/M VISIT PERFORMED BY: TRANSCRIBED BY:JORGITO ACEVES MD TRANSCRIBED DATE/TIME:11/10/25812 ELECTRONICALLY SIGNED BY:JORGITO ACEVES MD 11/10/25824 ELECTRONICALLY CO-SIGNED BY: [place] [id number] Ph: [phone] PATIENT: LENORA BROWN AACCT: [id number] : 1950 LOC: CENTRAL ROOM/ROOM: [facility] [place] AGE/SEX: 75/F ADM STATUS: ADM IN ADM DATE: 11/06/25 UNIT: [id number] HEALTH INFORMATION MANAGEMENT PROCEDURE NOTE - DVH :[id number] Signed ORDERING PHYSICIAN: PROCEDURE(s): ORDER NUMBER(s): , ACCESSION NUMBER(s): Procedure - Thoracentesis Procedure Note under ultrasound guidance INDICATION: Left sided pleural effusion PHYSICIAN: Link Aceves MD ASST: LY Cisneros CONSENT: Consent was obtained from patient/patient's HCP prior to the procedure. Indications, risks, and benefits were explained at length. Time out time: 1645 hours Risks and benefits of the procedure and sedation options and risks were discussed with the patient/patient's HCP. All questions were answered and informed consent was obtained. Patient identification and proposed procedure were verified prior to the procedure by the physician, and the nurse in the patient's room. PROCEDURE SUMMARY: A time out was performed and the chest x-ray was reviewed, the appropriate side was confirmed and marked. My hands were washed immediately prior to the procedure. I wore a surgical cap, mask with protective eyewear, sterile gown and sterile gloves throughout the procedure. The patient was prepped and draped in a sterile manner using chlorhexidine scrub after the appropriate level was percussed and confirmed by ultrasound. 1% lidocaine was used to anesthesize the skin, subcutaneous tissue, superior aspect of the rib periosteum and parietal pleura. A finder needle was then introduced over the superior aspect of the rib to locate the pleural fluid; yellow-straw colored fluid was aspirated at a depth of approximately 2 cm. A 10-blade scalpel was used to jed the skin at the insertion site. Under real-time ultrasound guidance, the 5 [place] Yueh Thora-Centesis needle was then introduced through the skin incision into the pleural space using negative aspiration pressure. The thoracentesis catheter was then threaded without difficulty. 2.3 liters of alis colored fluid was removed without difficulty. The catheter was then removed. No immediate complications were noted during the procedure. Using the linear probe, lung sliding was noted anteriorly and posteriorly and are an indication of no pneumothorax. A post-procedure chest x-ray is pending at the time of this note. The fluid will be sent for studies cell count and differential, fluid LDH, glucose, albumin and total protein, gram stain and culture, and cytology. Estimated blood loss is less than 5 mL. CPT: 89848 Visit Coding Pulmonary Billing Provider: JORGITO ACEVES MD Date of Service if different f: Nov 09, 2025 Common Visit Codes: PROCEDURE ONLY Procedure Codes: 35704-[id number] W/PUNCT (57886 Left thoracentesis) JORGITO ACEVES MD Nov 09, 2025 21:15 DICTATED BY: JORGITO ACEVES MD DICATED DATE/TIME: 11/09/252114 SIGNED BY: JORGITO ACEVES MD <<Signature on File>> SIGNED DATE/TIME: 11/10/25 0816 CC: [place] [id number] Ph: [phone] DIAGNOSTIC IMAGING Diagnostic Imaging Report : [id number] Signed PATIENT: LENORA BROWN AACCT: [id number] UNIT: [id number] : 1950 LOC: TELE-[facility] ROOM / BED: [facility], [place] / A AGE / SEX: 75 / F ADM STATUS: ADM IN SERVICE 16 ORDERING PHYSICIAN: CASTRO FERGUSON PROCEDURE(s): ECIDC - ECHO 2D MODE CARDIAC DOP REASON: ef ORDER NUMBER(s): [id number], ACCESSION NUMBER(s): [id number] APPROVED REPORT EXAM: LIMITED Two-dimensional and M-mode echocardiogram with Doppler and color Doppler. Blood Pressure: 132/104 mmHg INDICATION EF RISK FACTORS Obesity: Height: 5'0", Weight: 187 DIMENSIONS LVDd (3.8-5.7cm) LA (2D) 2.9 (1.9-4.0cm) Aortic Root 3.0 (2.0- 3.7cm) LVDs (2.5-4.0cm) LA (MM) (1.9-4.0cm) Aortic Cusp Exc 1.1 (1.5- 2.0cm) EF (%) 60.0 (55-70%) Rt. Atrium (1.9-4.0cm) Asc. Aorta cm Mitral Valve Mitral Mitral Stenosis E wave 1.09m/s MV Mean GR. mmHg A wave 1.49m/s MV Peak GR. mmHg E/A ratio 0.7 2D MVA cm2 DECEL Time 294ms PRESS 1/2 Time ms Aortic Valve Aortic Valve Aortic Stenosis V1 1.33m/s AO Mean GR. 8mmHg V2 2.10m/s AO Peak GR. 18mmHg LVOT Diameter 1.8 (1.8-2.4cm) Doppler KARISHMA 1.61cm2 Other Information Quality : Technically Limited Rhythm : Technically limited study due to body habitus, large pleural effusion. Conclusion limited study lvef 60% moderat [facility] cannot assess valves well significant pleural effusion, consider imaging or pulm consult for this, this distors most heart images small pericardial effusion, circumfrerential , no HD collapse noted SIGNED BY: AILIN MERCADO MD SIGNED DATE/TIME: 11/08/25 162 CC: Operations or Procedures [place] [address] Ph: [phone] DIAGNOSTIC IMAGING Diagnostic Imaging Report : [id number] Signed PATIENT: LENORA BROWN AACCT: [id number] UNIT: [id number] : 1950 LOC: ER ROOM / BED: / AGE / SEX: 75 / F ADM STATUS: REG ER SERVICE 3119 ORDERING PHYSICIAN: AYALA TIM MD PROCEDURE(s): CXRP - CHEST PORTABLE REASON: sob ORDER NUMBER(s): [id number], ACCESSION NUMBER(s): [id number] CHEST RADIOGRAPH INDICATION: sob TECHNIQUE: Single frontal view of the chest was obtained COMPARISON: None FINDINGS: Lines and Tubes: External cardiac monitoring wire draped over the right chest simulating the course of a right sided PICC line. This may represent wire from EKG lead as well. Lungs: No focal consolidation. Pleura: Opacification of the left kamaljit thorax may represent large pleural effusion. There are no prior chest x-rays for comparison No pneumothorax. Cardiomediastinal contours: Unremarkable Bones: No acute osseous abnormality. IMPRESSION: 1. Opacified left kamaljit thorax may represent a large pleural effusion. ATED BY: SCOTT SWEENEY Jr., DO DICTATED DATE/TIME: 11/06/251920 SIGNED BY: SCOTT SWEENEY Jr., SIGNED DATE/TIME: 11/06/251920 CC: [place] [id number] Ph: [phone] DIAGNOSTIC IMAGING Diagnostic Imaging Report : [id number] Signed PATIENT: LENORA BROWN AACCT: [id number] UNIT: [id number] : 1950 LOC: OVERFLOW ROOM / BED: [address] [place] [address] AGE / SEX: 75 / F ADM STATUS: ADM IN SERVICE 16 ORDERING PHYSICIAN: CASTRO FERGUSON PROCEDURE(s): CX2CT - CHEST WITHOUT CONTRAST REASON: sob ORDER NUMBER(s): [id number], ACCESSION NUMBER(s): [id number] CT Chest without intravenous contrast INDICATION: sob TECHNIQUE: Multidetector spiral CT of the chest was performed from the lung apices to the upper abdomen. Axial, coronal and sagittal multiplanar reformats were performed. Radiation Dose : 1. Chest: CTDI volume is 27.8 mGy. Dose-length product is 1066.83 mGy*cm The dose indicators for CT are the volume Computed Tomography (CT) Dose Index (CTDIvol) and the Dose Length Product (DLP), and are measured in units of mGy and mGy-cm, respectively. These indicators are not patient dose, but values generated from the CT scanner acquisition factors. The report includes radiation exposure data for exposures received during this examination. COMPARISON: XY CHEST PORTABLE on DOS: 11/06/25 FINDINGS: Lower neck: Normal thyroid. Lungs /pleura: Large left pleural effusion occupying the entire left kamaljit thorax with complete left lung collapse and concomitant shift of the mediastinal structures to the right. Subsolid 6 mm perifissural lateral right lower lobe pulmonary nodule. Heart/Vascular Structures: Normal heart size. No pericardial effusion. Lymph Nodes: No adenopathy Musculoskeletal: No acute osseous abnormality. Soft tissues: Normal. Upper abdomen: Limited portions of the upper abdomen are unremarkable. IMPRESSION: 1. Large left pleural effusion occupying the entire left hemithorax with complete left lung collapse and concomitant shift of the mediastinal structures to the right. 2. Subsolid perifissural lateral right lower lobe pulmonary nodule. Radiation optimization: All CT scans at this facility use at least one of these dose optimization techniques: automated exposure control mA and/or kV adjustment per patient size (includes targeted exams where dose is matched to clinical indication) or iterative reconstruction. ATED BY: BRINA NICK MD DICTATED DATE/TIME: 11/07/25499 SIGNED BY: BRINA NICK MD SIGNED DATE/TIME: 11/07/25499 CC: [place] [address] Ph: [phone] DIAGNOSTIC IMAGING Diagnostic Imaging Report : [id number] Signed PATIENT: LENORA BROWN AACCT: [id number] UNIT: [id number] : 1950 LOC: [facility] ROOM / BED: [facility] [place] / A AGE / SEX: 75 / F ADM STATUS: ADM IN SERVICE 0335 ORDERING PHYSICIAN: CASTRO FERGUSON PROCEDURE(s): VQ - NM VQ SCAN REASON: PULMONARY EMBOLISM ORDER NUMBER(s): [id number], ACCESSION NUMBER(s): [id number] NUCLEAR MEDICINE VENTILATION/PERFUSION LUNG SCAN. INDICATION: PULMONARY EMBOLISM TECHNIQUE: Following intravenous demonstration of 5 millicuries of technetium xe-133, and inhalation of 3.5 mCi of Tc 99m MAA scintigrams were obtained in multiple projections of the lungs. FINDINGS: There is normal uptake of radionuclide on both the ventilation and perfusion portions of the examination. No mismatched perfusion defects are demonstrated. Uptake is normally homogeneous. IMPRESSION: Low probability for PE. ATED BY: KAYY JERONIMO MD DICTATED DATE/TIME: 11/07/251514 SIGNED BY: KAYY JERONIMO MD SIGNED DATE/TIME: 11/07/251514 CC: [place] [address] Ph: [phone] DIAGNOSTIC IMAGING Diagnostic Imaging Report : [id number] Signed PATIENT: LENORA BROWN AACCT: [id number] UNIT: [id number] : 1950 LOC: OVERFLOW ROOM / BED: [address] [place] [address] AGE / SEX: 75 / F ADM STATUS: ADM IN SERVICE 5 ORDERING PHYSICIAN: CASTRO FERGUSON PROCEDURE(s): BLDVT - BiLat Lower DVT REASON: r/o dvt ORDER NUMBER(s): [id number], ACCESSION NUMBER(s): [id number] Bilateral lower extremity venous duplex CLINICAL HISTORY: edema COMPARISON: None FINDINGS: Duplex Doppler evaluation of the deep venous systems of both lower extremities from the common femoral veins to the popliteal veins including color Doppler and spectral/pulsed waveform analysis was performed. RIGHT SIDE: The common femoral vein demonstrates appropriate compressibility and waveform variability. There is compressibility/patency of the great saphenous vein at the proximal thigh. The femoral vein demonstrates appropriate compressibility and waveform variability. The deep femoral vein demonstrates appropriate compressibility and waveform variability. The popliteal vein demonstrates appropriate compressibility and waveform variability. There is normal compressibility at the tibioperoneal trunk. LEFT SIDE: The common femoral vein demonstrates appropriate compressibility and waveform variability. There is compressibility/patency of the great saphenous vein at the proximal thigh. The femoral vein demonstrates appropriate compressibility and waveform variability. The deep femoral vein demonstrates appropriate compressibility and waveform variability. The popliteal vein demonstrates appropriate compressibility and waveform variability. There is normal compressibility at the tibioperoneal trunk. IMPRESSION: No right or left femoropopliteal venous thrombosis. If clinical concern/symptoms persist or worsen, short-interval follow-up study is suggested. END IMPRESSION: ATED BY: KAYY JERONIMO MD DICTATED DATE/TIME: 11/07/25912 SIGNED BY: KAYY JERONIMO MD SIGNED DATE/TIME: 11/07/25912 CC: [place] [address] Ph: [phone] DIAGNOSTIC IMAGING Diagnostic Imaging Report : [id number] Signed PATIENT: LENORA BROWN AACCT: [id number] UNIT: [id number] : 1950 LOC: OVERFLOW ROOM / BED: [address] [place] [address] AGE / SEX: 75 / F ADM STATUS: ADM IN SERVICE 01 ORDERING PHYSICIAN: CASTRO FERGUSON PROCEDURE(s): THORA - THORACENTESIS REASON: PLERUAL EFFUSION ORDER NUMBER(s): [id number], ACCESSION NUMBER(s): [id number] PROCEDURE: ULTRASOUND GUIDED THORACENTESIS USING TEMPORARY CATHETER HISTORY: PLERUAL EFFUSION DOCUMENTATION: Informed consent was obtained and a procedural time out was performed. FINDINGS: The risks and benefits of the procedure including bleeding, infection and pneumothorax were explained to the patient and written informed consent obtained. Optimal site for puncture long the left posterior chest wall was determined using real-time ultrasound and the region sterilized. Local anesthesia was instilled. A 5 [place] catheter was then advanced into the pleural space and 1.1 liters of clear fluid was removed. The patient tolerated the procedure well. IMPRESSION: 1. Successful left thoracentesis with 1.1 L of clear fluid removed. ATED BY: CAYLA LOCKE MD DICTATED DATE/TIME: 11/07/251038 SIGNED BY: CAYLA LOCKE MD SIGNED DATE/TIME: 11/07/251038 CC: [place] [address] Ph: [phone] DIAGNOSTIC IMAGING Diagnostic Imaging Report : [id number] Signed PATIENT: LENORA BROWN AACCT: [id number] UNIT: [id number] : 1950 LOC: OVERFLOW ROOM / BED: [facility] / A AGE / SEX: 75 / F ADM STATUS: ADM IN SERVICE 1147 ORDERING PHYSICIAN: BUSTER BURGESS PROCEDURE(s): CXR1 - CHEST XRAY 1 VIEW REASON: Post Thoracentesis ORDER NUMBER(s): [id number], ACCESSION NUMBER(s): [id number] CHEST RADIOGRAPH INDICATION: Post Thoracentesis TECHNIQUE: Single frontal view of the chest was obtained COMPARISON: CT CHEST WITHOUT CONTRAST on DOS: 11/07/25, XY CHEST PORTABLE on DOS: 11/06/25 FINDINGS: Lines and Tubes: None Lungs: There is complete opacification of the left hemithorax. Increased density is seen at the right lung base. No pneumothorax. Cardiomediastinal contours: Difficult to visualize due to large hemithorax left opacity. Bones: No acute osseous abnormality. IMPRESSION: 1. Complete opacification of the left hemithorax. 2. No pneumothorax. 3. Mild infiltrate right lung base. ATED BY: CAYLA LOCKE MD DICTATED DATE/TIME: 11/07/25 1236 SIGNED BY: CAYLA LOCKE MD SIGNED DATE/TIME: 11/07/25 1236 CC: [place] [address] Ph: [phone] DIAGNOSTIC IMAGING Diagnostic Imaging Report : [id number] Signed PATIENT: LENORA BROWN AACCT: [id number] UNIT: [id number] : 1950 LOC: TELE-CENTR ROOM / BED: 0203 / A AGE / SEX: 75 / F ADM STATUS: ADM IN SERVICE 0400 ORDERING PHYSICIAN: MIKAL RASHID PROCEDURE(s): CXRP - CHEST PORTABLE REASON: PLEURAL EFFUSION ORDER NUMBER(s): [id number], ACCESSION NUMBER(s): [id number] CHEST RADIOGRAPH INDICATION: PLEURAL EFFUSION TECHNIQUE: Single frontal view of the chest was obtained COMPARISON: XY CHEST XRAY 1 VIEW on DOS: 11/07/25, CT CHEST WITHOUT CONTRAST on DOS: 12/15/25, XY CHEST PORTABLE on DOS: 11/06/25 FINDINGS: Lines and Tubes: None Lungs: Stable appearing extensive left hemithoracic opacification consistent with Large pleural effusion and mild concomitant hqsm-yk-[id number] shift of the mediastinal structures. Mild diffuse increased prominence of the right hemithoracic pulmonary vasculature. No pneumothorax. Cardiomediastinal contours: Unremarkable Bones: Unremarkable IMPRESSION: 1. Stable appearing extensive left hemithoracic opacification consistent with large pleural effusion and mild concomitant vzfw-am-khsub shift of the mediastinal structures. 2. Mild diffuse increased prominence of the right hemithoracic pulmonary vasculature. ATED BY: BRINA NICK MD DICTATED DATE/TIME: 11/08/25539 SIGNED BY: BRINA NICK MD SIGNED DATE/TIME: 11/08/25539 CC: [place] [address] Ph: [phone] DIAGNOSTIC IMAGING Diagnostic Imaging Report : [id number] Signed PATIENT: LENORA BROWN AACCT: [id number] UNIT: [id number] : 1950 LOC: CENTRAL ROOM / BED: 0203 / A AGE / SEX: 75 / F ADM STATUS: ADM IN SERVICE 1150 ORDERING PHYSICIAN: CAYLA LOCKE MD PROCEDURE(s): CHSTU - CHEST ULTRASOUND REASON: evaluate pleural effusion for possible thora ORDER NUMBER(s): [id number], ACCESSION NUMBER(s): [id number] Left Chest Sonogram Date: 11/09/2025 12:16 PM CLINICAL HISTORY: evaluate pleural effusion for possible thora FINDINGS: Limited sonographic evaluation of the left chest was performed to localize and beverly fluid for thoracentesis. There is a large left pleural effusion. IMPRESSION: Large left pleural effusion END IMPRESSION: ATED BY: KAYY JERONIMO MD DICTATED DATE/TIME: 11/09/251308 SIGNED BY: KAYY JERONIMO MD SIGNED DATE/TIME: 11/09/251308 CC: [place] [address] Ph: [phone] DIAGNOSTIC IMAGING Diagnostic Imaging Report : [id number] Signed PATIENT: LENORA BROWN AACCT: [id number] UNIT: [id number] : 1950 LOC: CENTRAL ROOM / BED: 0203 / A AGE / SEX: 75 / F ADM STATUS: ADM IN SERVICE 0736 ORDERING PHYSICIAN: MIKAL RASHID RESIDENT PROCEDURE(s): CXICT - CHEST WITH CONTRAST REASON: LUNG CA; EFFUSION/PNEUMOTHORAX ORDER NUMBER(s): [id number], ACCESSION NUMBER(s): [id number] EXAM: CT CHEST WITH CONTRAST HISTORY: LUNG CA; EFFUSION/PNEUMOTHORAX TECHNIQUE: CT angiogram was performed. CT scans at this facility use dose modulation, iterative reconstruction, and/or weight based dosing when appropriate to reduce radiation dose to as low as reasonably achievable. Coronal and sagittal reformations and maximum intensity projection images were created from the transaxial source data by the electronic technologist and workstation, as well as 3-D volume rendered images with MIPs. COMPARISON: US CHEST ULTRASOUND on DOS: 11/09/25 FINDINGS: [LOWER NECK]: Unremarkable [LYMPH NODES/MEDIASTINUM]: No abnormal lymph nodes by CT size criteria [CARDIOVASCULAR]: Normal cardiac size. No pericardial effusion. No aneurysmal dilatation of the great vessels. No significant coronary artery calcifications. [PULMONARY ARTERIES]: No pulmonary arterial filling defect. Normal caliber of the main pulmonary artery. No evidence of elevated right heart pressures. [UPPER ABDOMEN]: Gallbladder is hydropic measuring up to 9.1 cm. [MUSCULOSKELETAL]: No acute fracture or aggressive focal osseous lesion. Multilevel degenerative change of the visualized spine. [CHEST WALL]: Unremarkable. [LUNG PARENCHYMA/PLEURAL SPACE]: Status post presumed left-sided thoracentesis and presumed trapped lung creating appearance of pneumothorax. Persistent complete collapse versus masslike appearance of the left upper lobe which is failing to re-expand. Mild re-expansion of the left lower lobe however with left infrahilar suspected mass measuring 4 x 3.3 cm and marginal interstitial areas of nodular thickening with superimposed cystic lung change. Persistent small residual left-sided pleural effusion with pleural-based nodularity/thickening concerning for malignant ascites. Peripheral interstitial nodular areas of the periphery of the right upper lobe and right lower lobe measuring 2-3 mm of indeterminate etiology and differential includes pulmonary metastatic disease versus infectious/inflammatory etiology. IMPRESSION: 1. Status post presumed left-sided thoracentesis and presumed trapped lung creating appearance of pneumothorax. 2. Persistent complete collapse versus masslike appearance of the left upper lobe which is failing to re-expand. 3. Mild re-expansion of the left lower lobe however with left infrahilar suspected mass measuring 4 x 3.3 cm and marginal interstitial areas of nodular thickening with superimposed cystic lung change. 4. Persistent small residual left-sided pleural effusion with pleural-based nodularity/thickening concerning for malignant ascites. 5. Peripheral interstitial nodular areas of the periphery of the right upper lobe and right lower lobe measuring 2-3 mm of indeterminate etiology and differential includes pulmonary metastatic disease versus infectious/inflammatory etiology. ATED BY: NELSON BENAVIDES MD DICTATED DATE/TIME: 11/10/251724 SIGNED BY: NELSON BENAVIDES MD SIGNED DATE/TIME: 11/10/251724 CC: [place] [address] Ph: [phone] DIAGNOSTIC IMAGING Diagnostic Imaging Report : [id number] Signed PATIENT: LENORA BROWN AACCT: [id number] UNIT: [id number] : 1950 LOC: CENTRAL ROOM / BED: [facility] [place] / A AGE / SEX: 75 / F ADM STATUS: ADM IN SERVICE 1403 ORDERING PHYSICIAN: SILVINO FARIAS MD PROCEDURE(s): KIDUS - KIDNEY REASON: [place] ORDER NUMBER(s): [id number], ACCESSION NUMBER(s): [id number] RENAL ULTRASOUND History: [place] COMPARISON: None TECHNIQUE: Multiple real-time sonographic images of the kidney and bladder were obtained in conjunction with Doppler imaging. FINDINGS: Echogenic appearance of the bilateral kidneys. The right kidney measures 9.5 cm and demonstrates no evidence of hydronephrosis, perinephric fluid collection, or shadowing stone. The left kidney measures 9.9 cm and demonstrates no evidence of hydronephrosis, perinephric fluid collection, or shadowing stone. Urinary bladder: Prevoid urinary bladder volume is 103 mL. IMPRESSION: Echogenic appearance of the bilateral kidneys, which can be seen with medical renal disease. ATED BY: BORA BINGHAM MD DICTATED DATE/TIME: 11/10/251507 SIGNED BY: BORA BINGHAM MD SIGNED DATE/TIME: 11/10/251507 CC: Condition at Discharge: Stable Final Diagnosis/Problems List #Acute hypoxic respiratory failure likely due to parapneumonic effusion/malignant pleural effusion, likely exudative with concomitant mediastinal shifting to the right # suspected pneumonia Gram-positive versus Gram-negative # metastatic adenocarcinoma of the left lung m # right lung pulmonary nodule # left lung collapse, mass lesion # COPD # [place] likely due to VMN # hypertension # diabetes mellitus type 2 with hyperglycemia # small pericardial effusion # episodic hypoglycemia Discharge Disposition: Home Discharge Instruct/Medications Diet: Consistent carbohydrate, Cardiac 2g Na,low cholest, Renal Activity: Light activity Follow Up/Referral: DC clinic PCP-ask your doctor for referral for lung biopsy Follow up with Oncology Pulmonary outpatient for lung Nephrology consult for suspected CKD Medications: As prescribed Scheduled Doxycycline (Monohydrate) (Doxycycline), 100 MG PO BID Empagliflozin (Jardiance), 10 MG PO DAILY Fluticasone-Salmeterol (Advair Diskus 250/50), 1 PUFF INH BID, (Reported) Glipizide (Glipizide Er), 1 TAB PO DAILY, (Reported) Lisinopril (Lisinopril), 1 TAB PO DAILY, (Reported) Metformin Hydrochloride (Metformin Hcl), 1 TAB PO BID, (Reported) Metformin Hydrochloride (Metformin Hcl), 1 TAB PO BID Miscellaneous Medications Albuterol Sulfate (Albuterol Sulfate Hfa), 108 MCG IN, (Reported) Insulin Glargine-Yfgn (Insulin Glargine), 100 UNIT SC, (Reported) Discharge Statement: "Patient was advised to return to the ER or call 911 if any headaches, dizziness, shortness of breath, chest pain, abdominal pain, bleeding, fevers, or worsening of medical condition. Patient was counseled about treatment plan, medications, possible side effects, patientverbalized understanding. All questions were answered to the best of my ability. This discharge took greater then 30 minutes in planning, reviewing documentation, counseling the patient, and discussing with other team members." ASSESSMENT ASSESSMENT Assessment Acute hypoxic respiratory failure likely due to pneumonia Gram-positive versus Gram-negative Massive left-sided pleural effusion with lung collapse, status post thoracentesis x2 Carcinoma of the left lung/left lung mass Right lung nodule Visit Coding STANDARD RES Billing Provider: RANDOLPH CROCKETT MD Date of Service if different f: Nov 12, 2025 Common Visit Codes: 68141-ICD/OBS DISCH DAY >30min MIKAL RASHID RESIDENT Nov 12, 2025 12:01
[2025-11-12] MEDS: FUROSEMIDE 20 MG TAB PO SCH (12:03)
--- NOTE | 2025-11-12 13:53 | DVHPN2 ---
Progress Note Date Seen: Nov 12, 2025 Medical Necessity Reason Pt with a Central, PICC or Fol: No Subjective Changes from previous H/P or p: No Changes Objective vital signs Vital Sign Date Time Temp Pulse Resp B/P (MAP) Pulse Ox O2 Delivery O2 Flow Rate FiO2 11/12/25 12:03 139/68 11/12/25 08:57 98.2 68 16 92 98.2 11/12/25 08:00 Room Air* 0 21 Total Intake and Output 11/11/25 11/11/25 11/12/25 15:00 23:00 07:00 Intake Total 50 ml 600 ml 500 ml Balance 50 ml 600 ml 500 ml medications Current Medications Medications Dose Ordered Sig/Indra Route Start Time Stop Time Status Last Admin Dose Admin Nitroglycerin 0.4 mg Q5MINP PRN SL 11/06/25 20:15 Ondansetron HCl 4 mg Q4HP PRN IV 11/06/25 20:30 Enoxaparin Sodium 30 mg DAILY SC 11/07/25 10:00 11/12/25 12:04 30 MG Acetaminophen 650 mg Q6HP PRN PO 11/06/25 20:30 11/12/25 02:55 650 MG Albuterol 2.5 mg Q6HWA [facility] 11/07/25 18:00 11/12/25 05:16 2.5 MG Ipratropium [place] 0.5 mg Q6HWA [facility] 11/07/25 18:00 11/12/25 05:16 0.5 MG Nicotine 1 patch DAILY TD 11/08/25 10:00 11/12/25 12:04 1 PATCH Ceftriaxone Sodium 50 ml @ 100 mls/hr DAILY@09 IV 11/10/25 09:00 11/11/25 10:17 100 MLS/HR Azithromycin 250 mg DAILY PO 11/10/25 10:00 11/11/25 10:17 250 MG Diagnostic Test (Pha) 1 strip ACHS 11/11/25 11:30 11/12/25 11:30 1 STRIP Insulin Human Regular ACHS SC 11/11/25 11:30 11/12/25 11:30 4 UNITS Dextrose 50 ml UD PRN IV 11/11/25 07:15 Morphine Sulfate 2 mg Q30M PRN IV 11/11/25 09:15 Furosemide 20 mg DAILY PO 11/12/25 10:00 11/12/25 12:03 20 MG Examination: GENERAL:Abnormal, LUNGS:Abnormal, CVS:Normal laboratory and microbiology Laboratory Tests 11/12/25 05:47 Test 11/12/25 05:47 Range/Units Serum Glucose 89 74-106 mg/dL Microbiology Date/Time Source Procedure Growth Status 11/07/25 18:00 Nose MRSA Screen - Final Complete 11/07/25 10:25 Pleural Fluid Gram Stain - Final Complete 11/07/25 10:25 Pleural Fluid Body Fluid Culture - Final Complete 11/06/25 18:15 Blood Blood Culture - Final NO GROWTH AFTER 5 DAYS OF INCUBATION. Complete Problem List/Assessment/Plan Problem List/Assessment/Plan Acute kidney injury hemodynamic ckd unspecified COPD pleural effusion Adenocarcinoma of Lung, trapped lung hyperkalemia Dm2 from renal standpoint [place] is resolving lasix US kidney bladder unremarkable echo- LVH EF 60% strict I/O pulm Plan discussed with: Patient My Orders My Orders Orders - SILVINO FARIAS MD Procedure Category Date Status Time Furosemide Tablet PHA 11/12/25 In Process (Lasix Tablet) 10:00 SILVINO FARIAS MD Nov 12, 2025 13:53
[2025-11-12 14:18] LABS: Base Excess 3.3 mmol/L (-2.0-3.0)
[2025-11-12] MEDS ORDERED: DOXY100C79 PO (16:03)
[2025-11-12] MEDS ORDERED: METF-370 PO (16:03)
--- NOTE | 2025-11-12 22:54 | DVHPN2 ---
Subjective DOS: 11/12/2025 Patient seen and examined at bedside. Remains on supplemental oxygen Overnight events reviewed. Changes from previous H/P or p: No Changes Objective Vitals Vital Signs Date Time Temp Pulse Resp B/P (MAP) Pulse Ox O2 Delivery O2 Flow Rate FiO2 11/12/25 21:00 98.5 67 18 106/54 (71) 92 98.5 11/12/25 18:59 Nasal Cannula* 2 28 Intake/Output Intake and Output 11/12/25 07:00 Intake Total 1150 ml Balance 1150 ml Intake Oral 1100 ml IV Total 50 ml # Voids 5 # Bowel Movements 2 Exam Gen.: Patient lying in bed in no apparent distress. On supplemental oxygen. Head: Normocephalic, atraumatic. Eyes: EOMI/PERRLA. Ears: Normal hearing. Normal anatomy. Neck/trachea: Trachea midline, supple. Nose: Normal external anatomy. Mouth: Moist mucous membranes. Chest: Decreased air entry bilaterally. No wheezing or rhonchi. Cardiovascular: Positive S1, positive S2. Regular rate and rhythm. Abdomen: Positive bowel sounds in all 4 quadrants. Soft, non-tender, non- distended. : Deferred. Rectal: Deferred. Skin: Warm, dry. Intact. Extremities: 2+ radial pulses bilaterally. No lower extremity edema. Neuro: Awake, alert, oriented x3. No gross motor or sensory deficits. Cranial nerves II through XII intact. Gait not assessed. Medications Current Medications Medications Dose Ordered Sig/Indra Route Start Time Stop Time Status Last Admin Dose Admin Nitroglycerin 0.4 mg Q5MINP PRN SL 11/06/25 20:15 Ondansetron HCl 4 mg Q4HP PRN IV 11/06/25 20:30 Enoxaparin Sodium 30 mg DAILY SC 11/07/25 10:00 11/12/25 12:04 30 MG Acetaminophen 650 mg Q6HP PRN PO 11/06/25 20:30 11/12/25 02:55 650 MG Albuterol 2.5 mg Q6HWA NEB 11/07/25 18:00 11/12/25 18:58 2.5 MG Ipratropium [place] 0.5 mg Q6HWA NEB 11/07/25 18:00 11/12/25 18:58 0.5 MG Nicotine 1 patch DAILY TD 11/08/25 10:00 11/12/25 12:04 1 PATCH Ceftriaxone Sodium 50 ml @ 100 mls/hr DAILY@09 IV 11/10/25 09:00 11/11/25 10:17 100 MLS/HR Azithromycin 250 mg DAILY PO 11/10/25 10:00 11/11/25 10:17 250 MG Diagnostic Test (Pha) 1 strip ACHS 11/11/25 11:30 11/12/25 21:08 1 STRIP Insulin Human Regular ACHS SC 11/11/25 11:30 11/12/25 21:08 6 UNITS Dextrose 50 ml UD PRN IV 11/11/25 07:15 Morphine Sulfate 2 mg Q30M PRN IV 11/11/25 09:15 Furosemide 20 mg DAILY PO 11/12/25 10:00 11/12/25 12:03 20 MG Laboratory Results Laboratory Tests 11/12/25 05:47 Chemistry Test 11/12/25 05:47 Calcium Level 9.7 mg/dL (8.7-10.4) Magnesium Level 2.3 mg/dL (1.6-2.6) Urinalysis Test 11/07/25 01:11 11/08/25 17:03 Urine Color Yellow (Yellow) Urine Clarity Turbid (Clear) H Urine pH 5.5 (5.0-9.0) Urine Specific [place] 1.024 (1.001-1.035) Urine Protein 2+ (Negative) H Urine Ketones Negative (Negative) Urine Blood Negative /uL (Negative) Urine Nitrite Negative (Negative) Urine Bilirubin Negative (Negative) Urine Urobilinogen 2 mg/dL (Negative) H Urine Leukocyte Esterase Negative /uL (Negative) Urine RBC 2 /hpf (0 - 4) Urine Microscopic WBC 4 /HPF (0-5) Urine Squamous Epithelial Cells Few /hpf (<5) Urine Bacteria Few /hpf (None Seen) H Urine Hyaline Casts Many /lpf (0 - 2) Urine Mucus Few (None Seen) Urine Glucose Trace mg/dL (Normal) Urine Creatinine 57.37 mg/dL (30.0-125.0) Urine Protein/Creatinine Ratio 0.78 Urine Sodium 66 mmol/L (40-220) Urine Total Protein 44.7 mg/dL (1-14) H Blood Gas Results Test 11/12/25 14:09 Arterial Blood pH 7.480 (7.350-7.450) FiO2 % 21.0 Microbiology Microbiology Date/Time Source Procedure Growth Status 11/07/25 18:00 Nose MRSA Screen - Final Complete 11/07/25 10:25 Pleural Fluid Gram Stain - Final Complete 11/07/25 10:25 Pleural Fluid Body Fluid Culture - Final Complete 11/06/25 18:15 Blood Blood Culture - Final NO GROWTH AFTER 5 DAYS OF INCUBATION. Complete Assessment/Plan Assessment/Plan Impression: Acute on chronic hypoxic respiratory failure Dependence on supplemental oxygen Pleural effusion, large, left. Atelectasis Chronic obstructive pulmonary disease Acute kidney injury Obesity Events: Remains on supplemental oxygen, 3 LPM NC Taper O2 as tolerated Assess and arrange for home O2 S/p left thoracentesis on 11/09/25 - drained 2.3 liters. Pleural fluid was sent for CEA testing CT chest with contrast demonstrated an ex vacuo pneumothorax Likely trapped lung due to malignancy Cytology report from pleural fluid demonstrated adenocarcinoma of the lung Recommend referral to Oncology Recommend biopsy as outpatient by IR. Follow up with Hematology-Oncology Continue bronchodilators Complete antibiotic course MRSA negative Blood cx, pleural fluid cx show no growth thus far. Monitor hemoglobin Transfuse if less than 7.0 g/dL. Accu-Cheks, ISS. Pt is receiving bicarbonate and Lasix in preparation for IV contrast, per Nephrology recommendations. Monitor renal function. Monitor electrolytes. Supplement as necessary. Monitor ins and outs Nicotine patch Awaiting PT evaluation. Discussed with Dr. Rashid. S/p thoracentesis, 1.1 L fluid removed by IR on 11/07/25. Cytology shows pleural fluid glucose 66, total protein 4.9, possible exudative pleural effusion Echo 2D revealed LVH, LVEF 60%, small pericardial effusion. Cardiology recs appreciated Labs and imaging reviewed. Rest of plan as noted below. Plan: Supplemental oxygen Titrate to keep O2 sats above 92%. CXR (11/07) demonstrates complete opacification of the left hemithorax. No pneumothorax. Mild infiltrate, right lung base S/p left thoracentesis on 11/07/25 with removal of 1.1 liters of fluid. Chest CT (11/06) reveals: Large left pleural effusion occupying the entire left hemithorax with complete left lung collapse and concomitant shift of the mediastinal structures to the right. Subsolid perifissural lateral right lower lobe pulmonary nodule. V/Q scan shows low probability for PE. Bilateral lower extremity venous ultrasound negative for DVT. Continue bronchodilators. Continue antibiotics Incentive spirometry Blood pressure control. Accu-Cheks, ISS PRN. Diurese with Lasix as tolerated Monitor renal function. Monitor electrolytes. Supplement as necessary. Monitor ins and outs. Recommend diet and lifestyle modifications for weight reduction Obesity complicates all care DVT prophylaxis. Prognosis: Poor given patient's multiple co-morbidities. Rest of plan per hospitalist and other consultants. Thank you, Dr. Rashid, for allowing me to participate in this patient's care. Further recommendations will depend on the patient's clinical course. Please do not hesitate to contact me if you have any questions or concerns. This medical document was created using an electronic medical record system with [employer] dictation system. Although these documentations are being carefully reviewed, there may still be some phonetic and typographical changes. The errors are purely typographical, due to imperfection on the software program, and do not reflect any compromise in the patient's medical care. Plan discussed with: Patient, Other (LY García) Visit Coding Pulmonary Billing Provider: JORGITO ACEVES MD Date of Service if different f: Nov 12, 2025 Common Visit Codes: 01537-[id number] INP/OBS CARE(HIGH) JORGITO ACEVES MD Nov 12, 2025 22:54
[2025-11-13] VITALS (15 sets, daily range): BP systolic 108–147; BP diastolic 51–84; PULSE 60–80; RESP 16–18; TEMP 97.7–98.4; O2SAT 92–100
--- NOTE | 2025-11-13 16:54 | DVHPNRES ---
Progress Note Date Seen: Nov 13, 2025 Resident Creating Document: KO GÓMEZ RESIDENT Has the PT tested + for MRSA If YES, has PT been informed?: No Medical Necessity Reason Pt with a Central, PICC or Fol: No Subjective Review of Systems Patient is 75 years old female with a past medical history of hypertension, diabetes mellitus type 2, COPD not on home oxygen came with a complaint of shortness of breaths. As per patient she has been having shortness of breaths for last 3 weeks, increased with the exertion. Patient also endorsed cough with whitish mucus. Patient denied any fever, palpitation, leg swelling/weight loss or anorexia. CXR revealed-Opacified left kamaljit thorax may represent a large pleural effusion. CT chest- Large left pleural effusion occupying the entire left hemithorax with complete left lung collapse and concomitant shift of the mediastinal structures to the right. Subsolid perifissural lateral right lower lobe pulmonary nodule. V/Q scan low probability for PE. Doppler study of the lower extremity nonsignificant per DVT.1. Status post presumed left-sided thoracentesis and presumed trapped lung creating appearance of pneumothorax.Persistent complete collapse versus masslike appearance of the left upper lobe which is failing to re-expand. Mild re-expansion of the left lower lobe however with left infrahilar suspected mass measuring 4 x 3.3 cm and marginal interstitial areas of nodular thickening with superimposed cystic lung change. Persistent small residual left-sided pleural effusion with pleural-based nodularity/thickening concerning for malignant ascites.Peripheral interstitial nodular areas of the periphery of the right upper lobe and right lower lobe measuring 2-3 mm of indeterminate etiology and differential includes pulmonary metastatic disease versus infectious/inflammatory etiology. Echo 2D LVEF 60%. With the small pericardial effusion Past Medical History COPD, hypertension, diabetes mellitus Past Surgical History Denies Family History Noncontributory Smoke: No ALCOHOL: none Drugs: None Lives: with Family Hospital course-during hospital course patient had Zosyn x1, ferritin 1.1 L and 2nd x 2 .3 L fluid was removed. Patient was seen by stock letterer. Thoracentesis was done by stock letterer. Pleural fluid study revealed exudative effusion. reviewed CT chest with contrast -S/P presumed left-sided thoracentesis and presumed trapped lung creating appearance of pneumothorax.Persistent complete collapse versus masslike appearance of the left upper lobe which is failing to re-expand. Mild re-expansion of the left lower lobe however with left infrahilar suspected mass measuring 4 x 3.3 cm and marginal interstitial areas of nodular thickening with superimposed cystic lung change. Persistent small residual left-sided pleural effusion with pleural-based nodularity/thickening concerning for malignant ascites. Peripheral interstitial nodular areas of the periphery of the right upper lobe and right lower lobe measuring 2-3 mm of indeterminate etiology and differential includes pulmonary metastatic disease versus infectious/inflammatory etiology.-pleural fluid cytology revealed metastatic adenocarcinoma of the lung. Patient's symptoms improved after thoracentesis. Patient was also seen by account manager sales representative for [place] on CKD. Patient requires the criteria for home health for home oxygen. patient is being discharged with the advised to follow up at discharge clinic, with the PCP for referral for lung biopsy, follow up with the Oncology, follow up with the stock letterer and follow up with the account manager sales representative. Patient was hemodynamically stable on discharge. All questions were answered. On 11/13/25: Patient was examined and evaluated at the bedside. Vital signs, labs and chart were reviewed. Today, the patient reports feeling better with less shortness of breath. The patient is still on oxygen via nasal cannula at 2 L. Patient's symptoms improved after thoracentesis. Due to clinical improvement the patient was discharged yesterday, but the patient requires home oxygen. A Home-health services request was submitted for home O2. The Home O2 is still pending at this time. I have spoken with social Service hospice case manager Kaylee, asked her to inform me as soon as the oxygen is delivered in order to proceed with the discharge plan. When discharged, the patient has been advised to follow up at the discharge clinic and with PCP for referral for lung biopsy, also she will follow up with the following specialties: Oncology, stock letterer and account manager sales representative as an out patient. We will continue following up with the progress of the patient. ROS: Constitutional: No: Fever, Chills, Sweats, Malaise, Other Eyes: No: Vision change, Conjunctivae inflammation, Eyelid inflammation, Other, Redness ENT: No: Ear pain, Ear discharge, Nose pain, Nose discharge, Nose congestion, Mouth pain, Mouth swelling, Throat pain, Throat swelling, Other Respiratory: yes: SOB with excertion, No: Hemoptysis, Pleuritic Pain, Sputum, Wheezing Cardiovascular: No: Chest Pain, Palpitations, Orthopnea, Paroxysmal Noc. Dyspnea, Edema, Lt Headedness, Other Gastrointestinal: No: Nausea, Vomiting, Abdominal Pain, Diarrhea, Constipation, Melena, Hematochezia, Other Genitourinary: No Dysuria, No Frequency, No Incontinence, No Hematuria, No Retention, No Other Musculoskeletal: No: other, neck pain, shoulder pain, arm pain, back pain, hand pain, leg pain, foot pain Skin: No: Rash, Lesions, Jaundice, Bruising, Other Neurological: No: Weakness, Numbness, Incoordination, Change in speech, Confusion, Seizures, Other Objective vital signs Vital Sign Date Time Temp Pulse Resp B/P (MAP) Pulse Ox O2 Delivery O2 Flow Rate FiO2 11/13/25 13:00 98.1 76 18 121/74 (90) 93 98.1 11/13/25 11:30 Nasal Cannula* 2 28 Total Intake and Output 11/12/25 11/12/25 11/13/25 15:00 23:00 07:00 Intake Total 750 ml 550 ml Balance 750 ml 550 ml medications Current Medications Medications Dose Ordered Sig/Indra Route Start Time Stop Time Status Last Admin Dose Admin Nitroglycerin 0.4 mg Q5MINP PRN SL 11/06/25 20:15 Ondansetron HCl 4 mg Q4HP PRN IV 11/06/25 20:30 Enoxaparin Sodium 30 mg DAILY SC 11/07/25 10:00 11/13/25 11:39 30 MG Acetaminophen 650 mg Q6HP PRN PO 11/06/25 20:30 11/12/25 02:55 650 MG Albuterol 2.5 mg Q6HWA [facility] 11/07/25 18:00 11/13/25 06:17 2.5 MG Ipratropium [place] 0.5 mg Q6HWA [facility] 11/07/25 18:00 11/13/25 11:30 0.5 MG Nicotine 1 patch DAILY TD 11/08/25 10:00 11/13/25 10:00 1 PATCH Ceftriaxone Sodium 50 ml @ 100 mls/hr DAILY@09 IV 11/10/25 09:00 11/11/25 10:17 100 MLS/HR Azithromycin 250 mg DAILY PO 11/10/25 10:00 11/13/25 11:39 250 MG Diagnostic Test (Pha) 1 strip ACHS 11/11/25 11:30 11/13/25 11:40 1 STRIP Insulin Human Regular ACHS SC 11/11/25 11:30 11/13/25 11:45 4 UNITS Dextrose 50 ml UD PRN IV 11/11/25 07:15 Morphine Sulfate 2 mg Q30M PRN IV 11/11/25 09:15 Furosemide 20 mg DAILY PO 11/12/25 10:00 11/13/25 11:39 20 MG Examination General Appearance: Alert, Oriented X3, Cooperative, No acute distress, with O2 via NC HEENT: Atraumatic, PERRLA, EOMI, Mucous membr. moist/pink Respiratory: left lung field hypoventilate. Bilateral lung field showed no wheezing, no roncus. Cardiovascular: Regular rate, Normal S1, Normal S2, No murmurs, no chest pain on palpation of the chest. Abdominal: Normal bowel sounds, Soft, No tenderness, No hepatospenomegaly, No masses Extremities: No clubbing, No cyanosis, No edema, Normal pulses, No tenderness/swelling Skin: No breakdown, No significant lesion Neuro: Normal gait, Normal speech, Strength at 5/5 X4 ext, Normal tone, Sensation intact, Cranial nerves 3-12 NL, Reflexes 2+ Psych/Mental Status: Mental status NL, Mood NL laboratory and microbiology Laboratory Tests 11/12/25 05:47 Test 11/12/25 05:47 Range/Units Serum Glucose 89 74-106 mg/dL Microbiology Date/Time Source Procedure Growth Status 11/07/25 18:00 Nose MRSA Screen - Final Complete 11/07/25 10:25 Pleural Fluid Gram Stain - Final Complete 11/07/25 10:25 Pleural Fluid Body Fluid Culture - Final Complete 11/06/25 18:15 Blood Blood Culture - Final NO GROWTH AFTER 5 DAYS OF INCUBATION. Complete Problem List/Assessment/Plan Problem List/Assessment/Plan #Acute hypoxic respiratory failure likely due to parapneumonic effusion/malignant pleural effusion, likely exudative with concomitant mediastinal shifting to the right #Acute on chronic COPD exacerbation with suspected pneumonia Gram-positive versus Gram-negative #Metastatic adenocarcinoma of the left lung #Right lung pulmonary nodule #Left lung collapse, mass lesion # Acute small pericardial effusion - CXR revealed-Opacified left kamaljit thorax may represent a large pleural effusion. - CT chest- Large left pleural effusion occupying the entire left hemithorax with complete left lung collapse and concomitant shift of the mediastinal structures to the right. Subsolid perifissural lateral right lower lobe pulmonary nodule. On 11/09/2025 Patient had thoracentesis today by Dr. Worthy, had 2.3 L of fluid drained, sent for CEA - reviewed CT chest with contrast -S/P presumed left-sided thoracentesis and presumed trapped lung creating appearance of pneumothorax.Persistent complete collapse versus masslike appearance of the left upper lobe which is failing to re-expand. Mild re-expansion of the left lower lobe however with left infrahilar suspected mass measuring 4 x 3.3 cm and marginal interstitial areas of nodular thickening with superimposed cystic lung change. -pleural fluid cytology revealed metastatic adenocarcinoma of the lung -Echo 2D revealed LVEF 60%, small pericardial effusion -blood culture negative, body fluid culture/pleural fluid culture no growth so far, MRSA screening negative -continue antibiotic ceftriaxone and azithromycin as prescribed -nebulization PRN #Acute PE ruled out #Acute DVT ruled out - V/Q scan low probability for PE. - Doppler study of the lower extremity nonsignificant per DVT. # [place] likely due to VMN -Monitor creatinine and BUN -Avoid nephrotoxins # Chronic hypertensive heart disease with possible diastolic heart failure Med reconciliation # Chronic diabetes mellitus type 2 with hyperglycemia Sliding scale insulin HbA1c:7.5% #Obesity BMI 36.2 Diet Cardiac DVT prophylaxis: Lovenox GI prophylaxis Protonix Code status: full code Disposition: [facility] PCP: Dr. Gerard. Patient's status and plan discussed with the patient >30min. Case discussed with Dr. Chowdary Plan discussed with: Patient Visit Coding STANDARD RES Billing Provider: RANDOLPH CROCKETT MD Date of Service if different f: Nov 13, 2025 Common Visit Codes: [id number] INP/OBS CARE(HIGH) KO GÓMEZ RESIDENT Nov 13, 2025 16:53
--- NOTE | 2025-11-13 23:50 | DVHPN2 ---
Subjective DOS: 11/13/2025 Patient seen and examined at bedside. Remains on supplemental oxygen Overnight events reviewed. Changes from previous H/P or p: No Changes Objective Vitals Vital Signs Date Time Temp Pulse Resp B/P (MAP) Pulse Ox O2 Delivery O2 Flow Rate FiO2 11/13/25 20:55 98.4 70 18 109/52 (71) 98 98.4 11/13/25 18:10 Nasal Cannula* 2 28 Intake/Output Intake and Output 11/13/25 07:00 Intake Total 1300 ml Balance 1300 ml Intake Oral 1300 ml # Voids 6 # Bowel Movements 2 Exam Gen.: Patient lying in bed in no apparent distress. On supplemental oxygen. Head: Normocephalic, atraumatic. Eyes: EOMI/PERRLA. Ears: Normal hearing. Normal anatomy. Neck/trachea: Trachea midline, supple. Nose: Normal external anatomy. Mouth: Moist mucous membranes. Chest: Decreased air entry bilaterally. No wheezing or rhonchi. Cardiovascular: Positive S1, positive S2. Regular rate and rhythm. Abdomen: Positive bowel sounds in all 4 quadrants. Soft, non-tender, non- distended. : Deferred. Rectal: Deferred. Skin: Warm, dry. Intact. Extremities: 2+ radial pulses bilaterally. No lower extremity edema. Neuro: Awake, alert, oriented x3. No gross motor or sensory deficits. Cranial nerves II through XII intact. Gait not assessed. Medications Current Medications Medications Dose Ordered Sig/[facility] Route Start Time Stop Time Status Last Admin Dose Admin Nitroglycerin 0.4 mg Q5MINP PRN SL 11/06/25 20:15 Ondansetron HCl 4 mg Q4HP PRN IV 11/06/25 20:30 Enoxaparin Sodium 30 mg DAILY SC 11/07/25 10:00 11/13/25 11:39 30 MG Acetaminophen 650 mg Q6HP PRN PO 11/06/25 20:30 11/12/25 02:55 650 MG Albuterol 2.5 mg Q6HWA NEB 11/07/25 18:00 11/13/25 18:13 2.5 MG Ipratropium [place] 0.5 mg Q6HWA NEB 11/07/25 18:00 11/13/25 18:13 0.5 MG Nicotine 1 patch DAILY TD 11/08/25 10:00 11/13/25 10:00 1 PATCH Ceftriaxone Sodium 50 ml @ 100 mls/hr DAILY@09 IV 11/10/25 09:00 11/11/25 10:17 100 MLS/HR Azithromycin 250 mg DAILY PO 11/10/25 10:00 11/13/25 11:39 250 MG Diagnostic Test (Pha) 1 strip ACHS 11/11/25 11:30 11/13/25 21:48 1 STRIP Insulin Human Regular ACHS SC 11/11/25 11:30 11/13/25 21:50 4 UNITS Dextrose 50 ml UD PRN IV 11/11/25 07:15 Morphine Sulfate 2 mg Q30M PRN IV 11/11/25 09:15 Furosemide 20 mg DAILY PO 11/12/25 10:00 11/13/25 11:39 20 MG Laboratory Results Laboratory Tests 11/12/25 05:47 Urinalysis Test 11/07/25 01:11 11/08/25 17:03 Urine Color Yellow (Yellow) Urine Clarity Turbid (Clear) H Urine pH 5.5 (5.0-9.0) Urine Specific [place] 1.024 (1.001-1.035) Urine Protein 2+ (Negative) H Urine Ketones Negative (Negative) Urine Blood Negative /uL (Negative) Urine Nitrite Negative (Negative) Urine Bilirubin Negative (Negative) Urine Urobilinogen 2 mg/dL (Negative) H Urine Leukocyte Esterase Negative /uL (Negative) Urine RBC 2 /hpf (0 - 4) Urine Microscopic WBC 4 /HPF (0-5) Urine Squamous Epithelial Cells Few /hpf (<5) Urine Bacteria Few /hpf (None Seen) H Urine Hyaline Casts Many /lpf (0 - 2) Urine Mucus Few (None Seen) Urine Glucose Trace mg/dL (Normal) Urine Creatinine 57.37 mg/dL (30.0-125.0) Urine Protein/Creatinine Ratio 0.78 Urine Sodium 66 mmol/L (40-220) Urine Total Protein 44.7 mg/dL (1-14) H Microbiology Microbiology Date/Time Source Procedure Growth Status 11/07/25 18:00 Nose MRSA Screen - Final Complete 11/07/25 10:25 Pleural Fluid Gram Stain - Final Complete 11/07/25 10:25 Pleural Fluid Body Fluid Culture - Final Complete 11/06/25 18:15 Blood Blood Culture - Final NO GROWTH AFTER 5 DAYS OF INCUBATION. Complete Assessment/Plan Assessment/Plan Impression: Acute on chronic hypoxic respiratory failure Dependence on supplemental oxygen Pleural effusion, large, left. Atelectasis Chronic obstructive pulmonary disease Acute kidney injury Obesity Events: Remains on supplemental oxygen, 2 LPM NC Taper O2 as tolerated Assess and arrange for home O2 S/p left thoracentesis on 11/09/25 - drained 2.3 liters. Pleural fluid was sent for CEA testing CT chest with contrast demonstrated an ex vacuo pneumothorax Likely trapped lung due to malignancy Cytology report from pleural fluid demonstrated adenocarcinoma of the lung Recommend referral to Oncology Recommend biopsy as outpatient by IR. Follow up with Hematology-Oncology as outpatient. Continue bronchodilators Complete antibiotic course MRSA negative Blood cx, pleural fluid cx show no growth thus far. Monitor hemoglobin Transfuse if less than 7.0 g/dL. Accu-Cheks, ISS. Pt is receiving bicarbonate and Lasix in preparation for IV contrast, per Nephrology recommendations. Monitor renal function. Monitor electrolytes. Supplement as necessary. Monitor ins and outs Nicotine patch PT evaluation. S/p thoracentesis, 1.1 L fluid removed by IR on 11/07/25. Cytology shows pleural fluid glucose 66, total protein 4.9, possible exudative pleural effusion Echo 2D revealed LVH, LVEF 60%, small pericardial effusion. Cardiology recs appreciated Labs and imaging reviewed. Rest of plan as noted below. Plan: Supplemental oxygen Titrate to keep O2 sats above 92%. CXR (11/07) demonstrates complete opacification of the left hemithorax. No pneumothorax. Mild infiltrate, right lung base S/p left thoracentesis on 11/07/25 with removal of 1.1 liters of fluid. Chest CT (11/06) reveals: Large left pleural effusion occupying the entire left hemithorax with complete left lung collapse and concomitant shift of the mediastinal structures to the right. Subsolid perifissural lateral right lower lobe pulmonary nodule. V/Q scan shows low probability for PE. Bilateral lower extremity venous ultrasound negative for DVT. Continue bronchodilators. Continue antibiotics Incentive spirometry Blood pressure control. Accu-Cheks, ISS PRN. Diurese with Lasix as tolerated Monitor renal function. Monitor electrolytes. Supplement as necessary. Monitor ins and outs. Recommend diet and lifestyle modifications for weight reduction Obesity complicates all care DVT prophylaxis. Prognosis: Poor given patient's multiple co-morbidities. Rest of plan per hospitalist and other consultants. Thank you, Dr. Rashid, for allowing me to participate in this patient's care. Further recommendations will depend on the patient's clinical course. Please do not hesitate to contact me if you have any questions or concerns. This medical document was created using an electronic medical record system with [employer] dictation system. Although these documentations are being carefully reviewed, there may still be some phonetic and typographical changes. The errors are purely typographical, due to imperfection on the software program, and do not reflect any compromise in the patient's medical care. Plan discussed with: Patient, Other (RN Raquel) Visit Coding Pulmonary Billing Provider: JORGITO ACEVES MD Date of Service if different f: Nov 13, 2025 Common Visit Codes: [id number] INP/OBS CARE(HIGH) JORGITO ACEVES MD Nov 13, 2025 23:50
[2025-11-14] VITALS (14 sets, daily range): BP systolic 117–146; BP diastolic 54–80; PULSE 60–77; RESP 16–20; TEMP 97.5–98.3; O2SAT 96–100
[2025-11-14 07:35] LABS: Hemoglobin 13.3 g/dL (12.2-16.2)
[2025-11-14 07:37] LABS: Hematocrit 41.2 % (36.0-46.0); Mean Corpuscular Hemoglobin 25.2 pg (28.0-32.0); Mean Corpuscular Volume 77.8 fL (80.0-100.0); Nucleated Red Blood Cells % 0.2 %
[2025-11-14 07:42] LABS: Anion Gap 4 (5-15); Carbon Dioxide 28 mmol/L (20-31); Potassium 4.5 mmol/L (3.5-5.1); Sodium 139 mmol/L (136-145)
[2025-11-14 07:43] LABS: Calcium 9.7 mg/dL (8.7-10.4)
[2025-11-14 07:47] LABS: Chloride 107 mmol/L (98-107)
[2025-11-14 07:48] LABS: BUN/Creatinine Ratio 9.3 (10.0-20.0); Blood Urea Nitrogen 13 mg/dL (9-23)
[2025-11-14 07:59] LABS: Glucose 117 mg/dL (74-106)
[2025-11-14] MEDS ORDERED: EMPA1TAB PO (09:37)
--- NOTE | 2025-11-14 16:03 | DVHPNRES ---
Progress Note Date Seen: Nov 14, 2025 Resident Creating Document: MIKAL ZAPATA RESIDENT Has the PT tested + for MRSA If YES, has PT been informed?: No Medical Necessity Reason Pt with a Central, PICC or Fol: No Subjective Review of Systems Patient is 75 years old female with a past medical history of hypertension, diabetes mellitus type 2, COPD not on home oxygen came with a complaint of shortness of breaths. As per patient she has been having shortness of breaths for last 3 weeks, increased with the exertion. Patient also endorsed cough with whitish mucus. Patient denied any fever, palpitation, leg swelling/weight loss or anorexia. CXR revealed-Opacified left kamaljit thorax may represent a large pleural effusion. CT chest- Large left pleural effusion occupying the entire left hemithorax with complete left lung collapse and concomitant shift of the mediastinal structures to the right. Subsolid perifissural lateral right lower lobe pulmonary nodule. V/Q scan low probability for PE. Doppler study of the lower extremity nonsignificant per DVT. PMH-hypertension, diabetes mellitus type 2, COPD PSH- denies Allergy- and kidney Personal History/ Social History- chronic smoker for almost 50 years, denies alcoholism or drug abuse, lives with daughter and granddaughter. ROS Cardiovascular- shortness of breaths Respiratory cough, shortness of breath Gastrointestinal- denies any rectal bleeding, nausea or vomiting Musculoskeletal-denies acute joint swelling or tenderness or redness Neurological- denies acute dysarthria, dysphagia, change in vision Psychiatry- denies depression or SI or HI Skin- denies acute rash or purpura Patient is seen today at bedside Labs and chart reviewed Patient qualified for home oxygen, pending auth from insurance, Interventional radiology recommended not able to do biopsy, recommended for outpatient lung biopsy Spoke to patient's granddaughter Rosalva [phone], discussed patient's current medical condition, treatment plan and answered her questions Objective vital signs Vital Sign Date Time Temp Pulse Resp B/P (MAP) Pulse Ox O2 Delivery O2 Flow Rate FiO2 11/14/25 13:00 98.1 71 18 119/69 (86) 98 98.1 11/14/25 11:41 Nasal Cannula 2.0 11/14/25 11:41 28 Total Intake and Output 11/13/25 11/13/25 11/14/25 15:00 23:00 07:00 Intake Total 540 ml 300 ml Balance 540 ml 300 ml medications Current Medications Medications Dose Ordered Sig/Indra Route Start Time Stop Time Status Last Admin Dose Admin Nitroglycerin 0.4 mg Q5MINP PRN SL 11/06/25 20:15 Ondansetron HCl 4 mg Q4HP PRN IV 11/06/25 20:30 Enoxaparin Sodium 30 mg DAILY SC 11/07/25 10:00 11/14/25 10:08 30 MG Acetaminophen 650 mg Q6HP PRN PO 11/06/25 20:30 11/12/25 02:55 650 MG Albuterol 2.5 mg Q6HWA NEB 11/07/25 18:00 11/14/25 11:41 2.5 MG Ipratropium [place] 0.5 mg Q6HWA NEB 11/07/25 18:00 11/14/25 11:41 0.5 MG Nicotine 1 patch DAILY TD 11/08/25 10:00 11/14/25 10:07 1 PATCH Ceftriaxone Sodium 50 ml @ 100 mls/hr DAILY@09 IV 11/10/25 09:00 11/14/25 10:07 100 MLS/HR Azithromycin 250 mg DAILY PO 11/10/25 10:00 11/14/25 10:07 250 MG Diagnostic Test (Pha) 1 strip ACHS 11/11/25 11:30 11/14/25 11:30 1 STRIP Insulin Human Regular ACHS SC 11/11/25 11:30 11/14/25 12:23 4 UNITS Dextrose 50 ml UD PRN IV 11/11/25 07:15 Morphine Sulfate 2 mg Q30M PRN IV 11/11/25 09:15 Furosemide 20 mg DAILY PO 11/12/25 10:00 11/14/25 10:07 20 MG Examination General examination- awake, alert HEENT- PEERLA, no acute nasal discharge Cardiovascular- S1-S2 audible, rate and rhythm regular, no murmur Respiratory- diminished breath sound of the left side of the lung Gastrointestinal-nontender, bowel sound+. Nondistended Musculoskeletal-no acute joint swelling or tenderness or redness Lower extremity- no leg edema Neurological- cranial nerves intact, no acute dysarthria or dysphagia Psychiatry- denies depression or SI or HI Skin- no acute rash or purpura laboratory and microbiology Laboratory Tests 11/14/25 07:10 Test 11/14/25 07:10 Range/Units Serum Glucose 117 H 74-106 mg/dL Microbiology Date/Time Source Procedure Growth Status 11/07/25 18:00 Nose MRSA Screen - Final Complete 11/07/25 10:25 Pleural Fluid Gram Stain - Final Complete 11/07/25 10:25 Pleural Fluid Body Fluid Culture - Final Complete 11/06/25 18:15 Blood Blood Culture - Final NO GROWTH AFTER 5 DAYS OF INCUBATION. Complete Problem List/Assessment/Plan Problem List/Assessment/Plan #Acute hypoxic respiratory failure likely due to parapneumonic effusion/malignant pleural effusion, likely exudative with concomitant mediastinal shifting to the right # suspected pneumonia Gram-positive versus Gram-negative # metastatic adenocarcinoma of the left lung m # right lung pulmonary nodule # left lung collapse, mass lesion # COPD - CXR revealed-Opacified left kamaljit thorax may represent a large pleural effusion. - CT chest- Large left pleural effusion occupying the entire left hemithorax with complete left lung collapse and concomitant shift of the mediastinal structures to the right. Subsolid perifissural lateral right lower lobe pulmonary nodule. - V/Q scan low probability for PE. - Doppler study of the lower extremity nonsignificant per DVT. On 11/09/2025 Patient had thoracentesis today by Dr. Worthy, had 2.3 L of fluid drained, sent for CEA - reviewed CT chest with contrast -S/P presumed left-sided thoracentesis and presumed trapped lung creating appearance of pneumothorax.Persistent complete collapse versus masslike appearance of the left upper lobe which is failing to re-expand. Mild re-expansion of the left lower lobe however with left infrahilar suspected mass measuring 4 x 3.3 cm and marginal interstitial areas of nodular thickening with superimposed cystic lung change. Persistent small residual left-sided pleural effusion with pleural-based nodularity/thickening concerning for malignant ascites. Peripheral interstitial nodular areas of the periphery of the right upper lobe and right lower lobe measuring 2-3 mm of indeterminate etiology and differential includes pulmonary metastatic disease versus infectious/inflammatory etiology. -pleural fluid cytology revealed metastatic adenocarcinoma of the lung -Pleural fluid glucose 66, total protein 4.9 -Echo 2D revealed LVEF 60%, small pericardial effusion -blood culture negative, body fluid culture/pleural fluid culture no growth so far, MRSA screening negative -continue antibiotic ceftriaxone and azithromycin as prescribed -nebulization PRN -recommendation reviewed and appreciated - IR consult for lung biopsy-as per their not able to do biopsy at this moment, recommended for outpatient lung biopsy -patient qualified for home oxygen, pending Auth from insurance company, # [place] likely due to VMN -Avoid dehydration and nephrotoxic drug Nephrology recommendation reviewed and appreciated # hypertension -monitor blood pressure # diabetes mellitus type 2 with hyperglycemia -hemoglobin A1c 7.5 -insulin sliding scale Goals of care, Code status full code ; discussed with >15 minutes PUD prophylaxis: Pantoprazole DVT prophylaxis: Lovenox Plan discussed with Dr. Chowdary , nursing staff, Total time spent on patient evaluation, chart review, assessment and plan, discussion discussion >35 minutes Plan discussed with: Patient, Other (RN) Visit Coding STANDARD RES Billing Provider: RANDOLPH CROCKETT MD Date of Service if different f: Nov 14, 2025 Common Visit Codes: [id number] INP/OBS CARE(HIGH) MIKAL ZAPATA RESIDENT Nov 14, 2025 16:03
--- NOTE | 2025-11-14 23:06 | DVHPN2 ---
Subjective OS: 11/14/2025 Patient seen and examined at bedside. Remains on supplemental oxygen Overnight events reviewed. Changes from previous H/P or p: No Changes Objective Vitals Vital Signs Date Time Temp Pulse Resp B/P (MAP) Pulse Ox O2 Delivery O2 Flow Rate FiO2 11/14/25 21:00 98.0 77 18 117/54 (75) 98 98.0 11/14/25 20:00 Nasal Cannula* 2 28 Intake/Output Intake and Output 11/14/25 07:00 Intake Total 840 ml Balance 840 ml Intake Oral 840 ml # Voids 5 # Bowel Movements 2 Exam Gen.: Patient lying in bed in no apparent distress. On supplemental oxygen. Head: Normocephalic, atraumatic. Eyes: EOMI/PERRLA. Ears: Normal hearing. Normal anatomy. Neck/trachea: Trachea midline, supple. Nose: Normal external anatomy. Mouth: Moist mucous membranes. Chest: Decreased air entry bilaterally. No wheezing or rhonchi. Cardiovascular: Positive S1, positive S2. Regular rate and rhythm. Abdomen: Positive bowel sounds in all 4 quadrants. Soft, non-tender, non- distended. : Deferred. Rectal: Deferred. Skin: Warm, dry. Intact. Extremities: 2+ radial pulses bilaterally. No lower extremity edema. Neuro: Awake, alert, oriented x3. No gross motor or sensory deficits. Cranial nerves II through XII intact. Gait not assessed. Medications Current Medications Medications Dose Ordered Sig/[facility]ra Route Start Time Stop Time Status Last Admin Dose Admin Nitroglycerin 0.4 mg Q5MINP PRN SL 11/06/25 20:15 Ondansetron HCl 4 mg Q4HP PRN IV 11/06/25 20:30 Enoxaparin Sodium 30 mg DAILY SC 11/07/25 10:00 11/14/25 10:08 30 MG Acetaminophen 650 mg Q6HP PRN PO 11/06/25 20:30 11/14/25 22:06 650 MG Albuterol 2.5 mg Q6HWA NEB 11/07/25 18:00 11/14/25 19:00 2.5 MG Ipratropium [place] 0.5 mg Q6HWA NEB 11/07/25 18:00 11/14/25 18:59 0.5 MG Nicotine 1 patch DAILY TD 11/08/25 10:00 11/14/25 10:07 1 PATCH Ceftriaxone Sodium 50 ml @ 100 mls/hr DAILY@09 IV 11/10/25 09:00 11/14/25 10:07 100 MLS/HR Azithromycin 250 mg DAILY PO 11/10/25 10:00 11/14/25 10:07 250 MG Diagnostic Test (Pha) 1 strip ACHS 11/11/25 11:30 11/14/25 21:46 1 STRIP Insulin Human Regular ACHS SC 11/11/25 11:30 11/14/25 21:46 6 UNITS Dextrose 50 ml UD PRN IV 11/11/25 07:15 Morphine Sulfate 2 mg Q30M PRN IV 11/11/25 09:15 Furosemide 20 mg DAILY PO 11/12/25 10:00 11/14/25 10:07 20 MG Laboratory Results Laboratory Tests 11/14/25 07:10 Chemistry Test 11/14/25 07:10 Calcium Level 9.7 mg/dL (8.7-10.4) Urinalysis Test 11/07/25 01:11 11/08/25 17:03 Urine Color Yellow (Yellow) Urine Clarity Turbid (Clear) H Urine pH 5.5 (5.0-9.0) Urine Specific [place] 1.024 (1.001-1.035) Urine Protein 2+ (Negative) H Urine Ketones Negative (Negative) Urine Blood Negative /uL (Negative) Urine Nitrite Negative (Negative) Urine Bilirubin Negative (Negative) Urine Urobilinogen 2 mg/dL (Negative) H Urine Leukocyte Esterase Negative /uL (Negative) Urine RBC 2 /hpf (0 - 4) Urine Microscopic WBC 4 /HPF (0-5) Urine Squamous Epithelial Cells Few /hpf (<5) Urine Bacteria Few /hpf (None Seen) H Urine Hyaline Casts Many /lpf (0 - 2) Urine Mucus Few (None Seen) Urine Glucose Trace mg/dL (Normal) Urine Creatinine 57.37 mg/dL (30.0-125.0) Urine Protein/Creatinine Ratio 0.78 Urine Sodium 66 mmol/L (40-220) Urine Total Protein 44.7 mg/dL (1-14) H Microbiology Microbiology Date/Time Source Procedure Growth Status 11/07/25 18:00 Nose MRSA Screen - Final Complete 11/07/25 10:25 Pleural Fluid Gram Stain - Final Complete 11/07/25 10:25 Pleural Fluid Body Fluid Culture - Final Complete 11/06/25 18:15 Blood Blood Culture - Final NO GROWTH AFTER 5 DAYS OF INCUBATION. Complete Assessment/Plan Assessment/Plan Impression: Acute on chronic hypoxic respiratory failure Dependence on supplemental oxygen Pleural effusion, large, left. Atelectasis Chronic obstructive pulmonary disease Acute kidney injury Obesity Events: Remains on supplemental oxygen, 2 LPM NC Taper O2 as tolerated Arrange for home O2 and walker S/p left thoracentesis on 11/09/25 - drained 2.3 liters. Pleural fluid was sent for CEA testing CT chest with contrast demonstrated an ex vacuo pneumothorax Likely trapped lung due to malignancy Cytology report from pleural fluid demonstrated adenocarcinoma of the lung Recommend referral to Oncology Recommend biopsy as outpatient by IR. Follow up with Hematology-Oncology as outpatient. Continue bronchodilators Complete antibiotic course MRSA negative Blood cx, pleural fluid cx show no growth thus far. Incentive spirometry Monitor hemoglobin Transfuse if less than 7.0 g/dL. Accu-Cheks, ISS. Pt is receiving bicarbonate and Lasix in preparation for IV contrast, per Nephrology recommendations. Monitor renal function. Monitor electrolytes. Supplement as necessary. Monitor ins and outs Nicotine patch PT evaluation. Patient is stable for discharge from the pulmonary standpoint. Follow up as outpatient with Pulmonary and Oncology Patient needs PET CT and possible lung biopsy by IR. S/p thoracentesis, 1.1 L fluid removed by IR on 11/07/25. Cytology shows pleural fluid glucose 66, total protein 4.9, possible exudative pleural effusion Echo 2D revealed LVH, LVEF 60%, small pericardial effusion. Cardiology recs appreciated Labs and imaging reviewed. Rest of plan as noted below. Plan: Supplemental oxygen Titrate to keep O2 sats above 92%. CXR (11/07) demonstrates complete opacification of the left hemithorax. No pneumothorax. Mild infiltrate, right lung base S/p left thoracentesis on 11/07/25 with removal of 1.1 liters of fluid. Chest CT (11/06) reveals: Large left pleural effusion occupying the entire left hemithorax with complete left lung collapse and concomitant shift of the mediastinal structures to the right. Subsolid perifissural lateral right lower lobe pulmonary nodule. V/Q scan shows low probability for PE. Bilateral lower extremity venous ultrasound negative for DVT. Continue bronchodilators. Continue antibiotics Incentive spirometry Blood pressure control. Accu-Cheks, ISS PRN. Diurese with Lasix as tolerated Monitor renal function. Monitor electrolytes. Supplement as necessary. Monitor ins and outs. Recommend diet and lifestyle modifications for weight reduction Obesity complicates all care DVT prophylaxis. Prognosis: Poor given patient's multiple co-morbidities. Rest of plan per hospitalist and other consultants. Thank you, Dr. Rashid, for allowing me to participate in this patient's care. Further recommendations will depend on the patient's clinical course. Please do not hesitate to contact me if you have any questions or concerns. This medical document was created using an electronic medical record system with [employer] dictation system. Although these documentations are being carefully reviewed, there may still be some phonetic and typographical changes. The errors are purely typographical, due to imperfection on the software program, and do not reflect any compromise in the patient's medical care. Plan discussed with: Patient, Other (LY Samuel) Visit Coding Pulmonary Billing Provider: JORGITO ACEVES MD Date of Service if different f: Nov 14, 2025 Common Visit Codes: [id number] INP/OBS CARE(HIGH) JORGITO ACEVES MD Nov 14, 2025 23:06
[2025-11-15] VITALS (9 sets, daily range): BP systolic 128–144; BP diastolic 60–80; PULSE 58–73; RESP 16–18; TEMP 97.3–97.8; O2SAT 93–100
--- NOTE | 2025-11-15 14:57 | DVHPNRES ---
Progress Note Date Seen: Nov 15, 2025 Resident Creating Document: MIKAL ZAPATA RESIDENT Has the PT tested + for MRSA If YES, has PT been informed?: No Medical Necessity Reason Pt with a Central, PICC or Fol: No Subjective Review of Systems Hospital course-during hospital course patient had thoracentesis x2.. Patient was seen by hotel supplies salesperson. Thoracentesis was done by hotel supplies salesperson. Pleural fluid study revealed exudative effusion. reviewed CT chest with contrast -S/P presumed left-sided thoracentesis and presumed trapped lung creating appearance of pneumothorax.Persistent complete collapse versus masslike appearance of the left upper lobe which is failing to re-expand. Mild re-expansion of the left lower lobe however with left infrahilar suspected mass measuring 4 x 3.3 cm and marginal interstitial areas of nodular thickening with superimposed cystic lung change. Persistent small residual left-sided pleural effusion with pleural-based nodularity/thickening concerning for malignant ascites. Peripheral interstitial nodular areas of the periphery of the right upper lobe and right lower lobe measuring 2-3 mm of indeterminate etiology and differential includes pulmonary metastatic disease versus infectious/inflammatory etiology.-pleural fluid cytology revealed metastatic adenocarcinoma of the lung. Patient's symptoms improved after thoracentesis. Patient was also seen by oil derrick operator for [place] on CKD. Patient requires the criteria for home health for home oxygen. patient is being discharged with the advised to follow up at discharge clinic, with the PCP for referral for lung biopsy, follow up with the Oncology, follow up with the hotel supplies salesperson and follow up with the oil derrick operator. Patient was hemodynamically stable on discharge. All questions were answered. Patient was seen today at bedside Patient reported feeling good Patient is oxygen concentrator at bedside Patient waiting for front wheel walker to be at bedside by 4:00 p.m. Objective vital signs Vital Sign Date Time Temp Pulse Resp B/P (MAP) Pulse Ox O2 Delivery O2 Flow Rate FiO2 11/15/25 13:00 97.8 73 16 128/80 (96) 96 97.8 11/15/25 11:26 Nasal Cannula 2.0 11/15/25 11:26 28 Total Intake and Output 11/14/25 11/14/25 11/15/25 15:00 23:00 07:00 Intake Total 50 ml 600 ml 600 ml Balance 50 ml 600 ml 600 ml medications Current Medications Medications Dose Ordered Sig/Indra Route Start Time Stop Time Status Last Admin Dose Admin Nitroglycerin 0.4 mg Q5MINP PRN SL 11/06/25 20:15 Ondansetron HCl 4 mg Q4HP PRN IV 11/06/25 20:30 Enoxaparin Sodium 30 mg DAILY SC 11/07/25 10:00 11/15/25 09:57 30 MG Acetaminophen 650 mg Q6HP PRN PO 11/06/25 20:30 11/14/25 22:06 650 MG Albuterol 2.5 mg Q6HWA [facility] 11/07/25 18:00 11/15/25 11:26 2.5 MG Ipratropium [place] 0.5 mg Q6HWA NEB 11/07/25 18:00 11/15/25 11:26 0.5 MG Nicotine 1 patch DAILY TD 11/08/25 10:00 11/15/25 09:57 1 PATCH Ceftriaxone Sodium 50 ml @ 100 mls/hr DAILY@09 IV 11/10/25 09:00 11/14/25 10:07 100 MLS/HR Azithromycin 250 mg DAILY PO 11/10/25 10:00 11/15/25 09:56 250 MG Diagnostic Test (Pha) 1 strip ACHS 11/11/25 11:30 11/15/25 12:21 1 STRIP Insulin Human Regular ACHS SC 11/11/25 11:30 11/15/25 12:27 6 UNITS Dextrose 50 ml UD PRN IV 11/11/25 07:15 Morphine Sulfate 2 mg Q30M PRN IV 11/11/25 09:15 Furosemide 20 mg DAILY PO 11/12/25 10:00 11/15/25 09:56 20 MG Examination General examination- awake, alert HEENT- PEERLA, no acute nasal discharge Cardiovascular- S1-S2 audible, rate and rhythm regular, no murmur Respiratory- diminished breath sound of the left side of the lung Gastrointestinal-nontender, bowel sound+. Nondistended Musculoskeletal-no acute joint swelling or tenderness or redness Lower extremity- no leg edema Neurological- cranial nerves intact, no acute dysarthria or dysphagia Psychiatry- denies depression or SI or HI Skin- no acute rash or purpura laboratory and microbiology Laboratory Tests 11/14/25 07:10 Test 11/14/25 07:10 Range/Units Serum Glucose 117 H 74-106 mg/dL Microbiology Date/Time Source Procedure Growth Status 11/07/25 18:00 Nose MRSA Screen - Final Complete 11/07/25 10:25 Pleural Fluid Gram Stain - Final Complete 11/07/25 10:25 Pleural Fluid Body Fluid Culture - Final Complete 11/06/25 18:15 Blood Blood Culture - Final NO GROWTH AFTER 5 DAYS OF INCUBATION. Complete Problem List/Assessment/Plan Problem List/Assessment/Plan #Acute hypoxic respiratory failure likely due to parapneumonic effusion/malignant pleural effusion, likely exudative with concomitant mediastinal shifting to the right # suspected pneumonia Gram-positive versus Gram-negative # metastatic adenocarcinoma of the left lung m # right lung pulmonary nodule # left lung collapse, mass lesion # COPD - CXR revealed-Opacified left kamaljit thorax may represent a large pleural effusion. - CT chest- Large left pleural effusion occupying the entire left hemithorax with complete left lung collapse and concomitant shift of the mediastinal structures to the right. Subsolid perifissural lateral right lower lobe pulmonary nodule. - V/Q scan low probability for PE. - Doppler study of the lower extremity nonsignificant per DVT. On 11/09/2025 Patient had thoracentesis today by Dr. Worthy, had 2.3 L of fluid drained, sent for CEA - reviewed CT chest with contrast -S/P presumed left-sided thoracentesis and presumed trapped lung creating appearance of pneumothorax.Persistent complete collapse versus masslike appearance of the left upper lobe which is failing to re-expand. Mild re-expansion of the left lower lobe however with left infrahilar suspected mass measuring 4 x 3.3 cm and marginal interstitial areas of nodular thickening with superimposed cystic lung change. Persistent small residual left-sided pleural effusion with pleural-based nodularity/thickening concerning for malignant ascites. Peripheral interstitial nodular areas of the periphery of the right upper lobe and right lower lobe measuring 2-3 mm of indeterminate etiology and differential includes pulmonary metastatic disease versus infectious/inflammatory etiology. -pleural fluid cytology revealed metastatic adenocarcinoma of the lung -Pleural fluid glucose 66, total protein 4.9 -Echo 2D revealed LVEF 60%, small pericardial effusion -blood culture negative, body fluid culture/pleural fluid culture no growth so far, MRSA screening negative -continue antibiotic ceftriaxone and azithromycin as prescribed -nebulization PRN -recommendation reviewed and appreciated - IR consult for lung biopsy-as per their not able to do biopsy at this moment, recommended for outpatient lung biopsy -patient qualified for home oxygen # [place] likely due to VMN -Avoid dehydration and nephrotoxic drug Nephrology recommendation reviewed and appreciated # hypertension -monitor blood pressure # diabetes mellitus type 2 with hyperglycemia -hemoglobin A1c 7.5 -insulin sliding scale Goals of care, Code status full code ; discussed with >15 minutes PUD prophylaxis: Pantoprazole DVT prophylaxis: Lovenox Plan discussed with Dr. Chowdary , nursing staff, Total time spent on patient evaluation, chart review, assessment and plan, discussion discussion >35 minutes Plan discussed with: Patient, Other (RN) My Orders My Orders Orders - MIKAL ZAPATA Procedure Category Date Status Time Consult Care CONS 11/15/25 Transmitted Coordinator Visit Coding STANDARD RES Billing Provider: RANDOLPH CROCKETT MD Date of Service if different f: Nov 15, 2025 Common Visit Codes: 46187-[id number] INP/OBS CARE(HIGH) MIKAL ZAPATA Nov 15, 2025 14:57
--- NOTE | 2025-11-15 22:32 | DVHPN2 ---
Subjective OS: 11/15/2025 Patient seen and examined at bedside. Remains on supplemental oxygen Overnight events reviewed. Changes from previous H/P or p: No Changes Objective Vitals Vital Signs Date Time Temp Pulse Resp B/P (MAP) Pulse Ox O2 Delivery O2 Flow Rate FiO2 11/15/25 13:00 97.8 73 16 128/80 (96) 96 97.8 11/15/25 11:26 Nasal Cannula 2.0 11/15/25 11:26 28 Intake/Output Intake and Output 11/15/25 07:00 Intake Total 1250 ml Balance 1250 ml Intake Oral 1200 ml IV Total 50 ml # Voids 5 # Bowel Movements 2 Exam Gen.: Patient lying in bed in no apparent distress. On supplemental oxygen. Head: Normocephalic, atraumatic. Eyes: EOMI/PERRLA. Ears: Normal hearing. Normal anatomy. Neck/trachea: Trachea midline, supple. Nose: Normal external anatomy. Mouth: Moist mucous membranes. Chest: Decreased air entry bilaterally. No wheezing or rhonchi. Cardiovascular: Positive S1, positive S2. Regular rate and rhythm. Abdomen: Positive bowel sounds in all 4 quadrants. Soft, non-tender, non- distended. : Deferred. Rectal: Deferred. Skin: Warm, dry. Intact. Extremities: 2+ radial pulses bilaterally. No lower extremity edema. Neuro: Awake, alert, oriented x3. No gross motor or sensory deficits. Cranial nerves II through XII intact. Gait not assessed. Laboratory Results Laboratory Tests 11/14/25 07:10 Urinalysis Test 11/07/25 01:11 11/08/25 17:03 Urine Color Yellow (Yellow) Urine Clarity Turbid (Clear) H Urine pH 5.5 (5.0-9.0) Urine Specific [place] 1.024 (1.001-1.035) Urine Protein 2+ (Negative) H Urine Ketones Negative (Negative) Urine Blood Negative /uL (Negative) Urine Nitrite Negative (Negative) Urine Bilirubin Negative (Negative) Urine Urobilinogen 2 mg/dL (Negative) H Urine Leukocyte Esterase Negative /uL (Negative) Urine RBC 2 /hpf (0 - 4) Urine Microscopic WBC 4 /HPF (0-5) Urine Squamous Epithelial Cells Few /hpf (<5) Urine Bacteria Few /hpf (None Seen) H Urine Hyaline Casts Many /lpf (0 - 2) Urine Mucus Few (None Seen) Urine Glucose Trace mg/dL (Normal) Urine Creatinine 57.37 mg/dL (30.0-125.0) Urine Protein/Creatinine Ratio 0.78 Urine Sodium 66 mmol/L (40-220) Urine Total Protein 44.7 mg/dL (1-14) H Microbiology Microbiology Date/Time Source Procedure Growth Status 11/07/25 18:00 Nose MRSA Screen - Final Complete 11/07/25 10:25 Pleural Fluid Gram Stain - Final Complete 11/07/25 10:25 Pleural Fluid Body Fluid Culture - Final Complete 11/06/25 18:15 Blood Blood Culture - Final NO GROWTH AFTER 5 DAYS OF INCUBATION. Complete Assessment/Plan Assessment/Plan Impression: Acute on chronic hypoxic respiratory failure Dependence on supplemental oxygen Pleural effusion, large, left. Atelectasis Chronic obstructive pulmonary disease Acute kidney injury Obesity Events: Remains on supplemental oxygen, 2 LPM NC Taper O2 as tolerated Arrange for home O2 and walker CXR on 11/12 reveals moderate left hydropneumothorax, similar to prior CT chest given differences in modality. S/p left thoracentesis on 11/09/25 - drained 2.3 liters. Pleural fluid was sent for CEA testing CT chest with contrast (11/10) demonstrated an ex vacuo pneumothorax Likely trapped lung due to malignancy Cytology report from pleural fluid demonstrated adenocarcinoma of the lung Recommend referral to Oncology Recommend biopsy as outpatient by IR. Follow up with Hematology-Oncology as outpatient. Continue bronchodilators Complete antibiotic course MRSA negative Blood cx, pleural fluid cx show no growth thus far. Incentive spirometry Monitor hemoglobin Transfuse if less than 7.0 g/dL. Accu-Cheks, ISS. Pt is receiving bicarbonate and Lasix in preparation for IV contrast, per Nephrology recommendations. Monitor renal function. Monitor electrolytes. Supplement as necessary. Monitor ins and outs Nicotine patch PT evaluation. Patient is stable for discharge from the pulmonary standpoint once home O2 is arranged. Follow up as outpatient with Pulmonary and Oncology Patient needs PET CT and possible lung biopsy by IR. S/p thoracentesis, 1.1 L fluid removed by IR on 11/07/25. Cytology shows pleural fluid glucose 66, total protein 4.9, possible exudative pleural effusion Echo 2D revealed LVH, LVEF 60%, small pericardial effusion. Cardiology recs appreciated Labs and imaging reviewed. Rest of plan as noted below. Plan: Supplemental oxygen Titrate to keep O2 sats above 92%. CXR (11/07) demonstrates complete opacification of the left hemithorax. No pneumothorax. Mild infiltrate, right lung base S/p left thoracentesis on 11/07/25 with removal of 1.1 liters of fluid. Chest CT (11/06) reveals: Large left pleural effusion occupying the entire left hemithorax with complete left lung collapse and concomitant shift of the mediastinal structures to the right. Subsolid perifissural lateral right lower lobe pulmonary nodule. V/Q scan shows low probability for PE. Bilateral lower extremity venous ultrasound negative for DVT. Continue bronchodilators. Continue antibiotics Incentive spirometry Blood pressure control. Accu-Cheks, ISS PRN. Diurese with Lasix as tolerated Monitor renal function. Monitor electrolytes. Supplement as necessary. Monitor ins and outs. Recommend diet and lifestyle modifications for weight reduction Obesity complicates all care DVT prophylaxis. Prognosis: Poor given patient's multiple co-morbidities. Rest of plan per hospitalist and other consultants. Thank you, Dr. Rashid, for allowing me to participate in this patient's care. Further recommendations will depend on the patient's clinical course. Please do not hesitate to contact me if you have any questions or concerns. This medical document was created using an electronic medical record system with [employer] dictation system. Although these documentations are being carefully reviewed, there may still be some phonetic and typographical changes. The errors are purely typographical, due to imperfection on the software program, and do not reflect any compromise in the patient's medical care. Plan discussed with: Patient, Other (LY Samuel) Visit Coding Pulmonary Billing Provider: JORGITO ACEVES MD Date of Service if different f: Nov 15, 2025 Common Visit Codes: [id number] INP/OBS CARE(HIGH) JORGITO ACEVES MD Nov 15, 2025 22:32
== END 2025-11-15 16:40 | disposition home health service (06) | DRG 180 ==
LOC: ER 17:23 → EDBD 17:23 → OVERFLOW 20:08 → TELE-CENTR 11-07 15:02 → CENTRAL 11-09 12:15 → EAST 11-11 08:14
PROVIDERS: ADMIT Student in an Organized Health Care Education/Training Program; ATTEND Student in an Organized Health Care Education/Training Program
PROC: 5A09357 Assistance with Respiratory Ventilation, Less than 24 Consecutive Hours, Continuous Positive Airway Pressure (ICD-10-PCS; 2025-11-06)
PROC: 0W9B3ZZ Drainage of Left Pleural Cavity, Percutaneous Approach (ICD-10-PCS; 2025-11-07)
PROC: 0W9B3ZX Drainage of Left Pleural Cavity, Percutaneous Approach, Diagnostic (ICD-10-PCS; principal; 2025-11-09)
DX: C34.92 Malignant neoplasm of unspecified part of left bronchus or lung (principal); J15.69 Pneumonia due to other Gram-negative bacteria; J96.21 Acute and chronic respiratory failure with hypoxia; N17.0 Acute kidney failure with tubular necrosis; J15.9 Unspecified bacterial pneumonia; I31.39 Other pericardial effusion (noninflammatory); J93.9 Pneumothorax, unspecified; J44.0 Chronic obstructive pulmonary disease with (acute) lower respiratory infection; J91.0 Malignant pleural effusion; J94.8 Other specified pleural conditions; E11.65 Type 2 diabetes mellitus with hyperglycemia; E66.9 Obesity, unspecified; I12.9 Hypertensive chronic kidney disease with stage 1 through stage 4 chronic kidney disease, or unspecified chronic kidney disease; N18.9 Chronic kidney disease, unspecified; E11.649 Type 2 diabetes mellitus with hypoglycemia without coma; E87.5 Hyperkalemia; F17.210 Nicotine dependence, cigarettes, uncomplicated; E11.22 Type 2 diabetes mellitus with diabetic chronic kidney disease; Z79.84 Long term (current) use of oral hypoglycemic drugs; Z79.4 Long term (current) use of insulin; Z99.81 Dependence on supplemental oxygen; Z68.36 Body mass index [BMI] 36.0-36.9, adult
CPT/HCPCS: 32555; 36415; 36600; 71045; 71250; 71260; 76604; 76775; 76942; 78582; 80048; 80053; 80307; 81001; 82306; 82570; 82607; 82746; 82805; 82962; 83036; 83525; 83605; 83615; 83735; 83880; 83986; 84156; 84300; 84443; 84484; 85025; 85379; 85610; 85652; 85730; 86141; 87040; 87071; 87081; 87205; 87804; 88341; 89051; 93005; 93306; 93970; 94640; 94660; 96365; 97162; 99291; G0378; J1815; J2003; J2543